=== PATIENT | female | born 1980 | race Caucasian/White ===

== ENCOUNTER 2021-03-28 20:14 | Emergency (ER) | payer OTHER, SELFPAY ==
--- NOTE | ~2021-03-28 | US_ITS ---
EXAMINATION: US ABDOMEN LIMITED CLINICAL INFORMATION: Right upper quadrant pain. Question cholecystitis.. COMPARISON: CT 07/29/2019 TECHNIQUE: Real-time imaging of the right upper quadrant abdominal viscera. FINDINGS: PANCREAS: The pancreatic head is obscured by gas. The visualized portion of the body is unremarkable. LIVER: 0.7 cm cyst in the right lobe of the liver. The liver is normal in size. The liver contour is normal. Parenchymal echogenicity is normal. No solid hepatic lesion. There is no intrahepatic biliary duct dilatation seen. GALLBLADDER: There is a 2.1 cm stone within the gallbladder lumen. No gallbladder wall thickening or pericholecystic fluid. COMMON BILE DUCT: Normal in caliber measuring 0.3 cm in diameter. RIGHT KIDNEY: Cortical thinning at the upper pole. No hydronephrosis. No renal calculi or focal parenchymal lesions. The kidney measures 9.9 cm in maximum dimension. FREE FLUID: None. US/US abdomen limited IMPRESSION: Cholelithiasis. No evidence of acute inflammatory changes.
[2021-03-28 21:12] VITALS: BP 154/96; PULSE 87; RESP 18; TEMP 36.9; O2SAT 98; BMI 33.6
[2021-03-28 21:33] LABS: Appearance Urine CLEAR; Color Urine YELLOW; Glucose Urine UA NEG (NEG); Leukocyte Esterase Urine NEG (NEG); Nitrite Urine NEG (NEG); Urine Blood NEG (NEG); Urine Ketones NEG (NEG); Urine Protein NEG (NEG-TRACE)
[2021-03-28 21:40] LABS: UPreg QC Valid YES; Urine Pregnancy NEGATIVE (NEGATIVE)
--- NOTE | 2021-03-29 01:06 | ED.ABDPAIN ---
HPI - Abdominal Pain General Chief Complaint: Abdominal Pain Stated Complaint: FLANK PAIN? Time Seen by Provider: 03/29/21 01:01 Source: patient Mode of arrival: ambulatory Limitations: no limitations History of Present Illness HPI narrative: Patient complaining of pain right upper quadrant for last few weeks more so for last 1 week and got worse since last night after eating the dinner. Patient vomited 3 times since last night low-grade fever and chills did not feel hungry and did eat much today feels bloated pain is localized to the right upper quadrant radiating to the right flank area , no dysuria no dandy hematuria. Patient does have history of kidney stone once, never been diagnosed with gallstones. Patient is status post appendectomy also patient complaining of loose stools Related Data Previous Rx's Medication Instructions Recorded ondansetron 4 mg PO Q6-8H PRN #10 tab 03/29/21 tramadol 50 mg PO Q6H PRN #20 tab 03/29/21 Allergies Allergy/AdvReac Type Severity Reaction Status Date / Time acetaminophen [From PERCOCET] Allergy Unknown UNKNOWN Verified 03/28/21 21:18 oxycodone [From PERCOCET] Allergy Unknown UNKNOWN Verified 03/28/21 21:18 Review of Systems Review of Systems Constitutional : No Weight loss, No Fever, No Chills ENT/Mouth : No sore throat, No Rhinorrhea Eyes: No Eye Pain, No Swelling Cardiovascular : No Chest Pain, no palpitations Respiratory : No Cough, No Sputum, no shortness of breath Gastrointestinal :+ Nausea, + Vomiting, No Diarrhea, + abdominal Pain, no black stools Genitourinary : No Dysuria, No Urinary Frequency Musculoskeletal : No joint pain, No Myalgias, No Joint Swelling Skin : No Skin Lesions, No rash Neuro : No Weakness, No Numbness, No Dizziness, No Headache Psych : No Anxiety/Panic, No Depression Heme/Lymph: No Bruising, No Lymphadenopathy Endocrine : No Polyuria, No Polydipsia All other systems reviewed and are negative Physical Exam Vital Signs: Vital Signs: Last Vital Signs Temp 98.4 F 03/28/21 21:12 Pulse 87 03/28/21 21:12 Resp 18 03/28/21 21:12 BP 154/96 H 03/28/21 21:12 Pulse Ox 98 03/28/21 21:12 Body Mass Index 33.6 Appearance: Alert. Oriented X3. In moderate distress. Eyes: PERRLA, No Nystagmus ENT: Pharynx normal. Oral Mucosa moist Neck: Normal inspection. Neck supple. CVS: Normal heart rate and rhythm. Pulses normal. Respiratory: No respiratory distress. Equal air entry bilateral, no wheezing/rales/rhonchi Abdomen: Soft and tender right upper quadrant with guarding no rebound tenderness Bowel sounds are present, no mass palpable, no CVA tenderness Skin: Skin warm and dry. Normal skin color. Normal skin turgor. Extremities: No lower extremity edema. No calf tenderness Neuro: Oriented X 3. No motor deficit. No sensory deficit.No cerebellar signs , cranial nerves II-XII intact MDM - Abdominal Pain MDM Narrative Medical decision making narrative: Patient with right upper quadrant pain clinically seems like patient has cholecystitis/gallstones will do ultrasound and check the labs Ultrasound showed gallstones without gallbladder wall thickening or fluid collection Will discharge patient home on pain medication advised follow-up with surgeon Lab Data Attestation: I reviewed the patient's lab results. Result diagrams: 03/29/21 01:17 03/29/21 01:17 Labs: Lab Results 03/28/21 03/28/21 03/29/21 Range/Units 21:26 21:26 01:17 WBC 6.9 (4.8-10.8) X10*3/uL RBC 4.44 (4.20-5.50) X10*6/uL Hgb 12.5 (12.0-16.0) g/dl Hct 38.7 (37-47) % MCV 87.2 (80-98) fL MCH 28.2 (27.0-33.0) pg MCHC 32.3 (31.0-35.0) g/dl RDW 13.4 (11.0-16.0) % Plt Count 240 (160-400) X10*3/uL MPV 10.1 (9.4-12.3) fL Immature Gran % (Auto) 0.1 (0.0-0.4) % Neut % (Auto) 52.9 (45-73) % Lymph % (Auto) 37.4 (20-40) % [place] % (Auto) 7.7 (2-11) % Eos % (Auto) 1.5 (0-4) % Baso % (Auto) 0.4 (0-2) % Lymph # (Auto) 2.6 (1.2-4.9) X10*3/uL [place] # (Auto) 0.5 (0.1-1.2) X10*3/uL Eos # (Auto) 0.1 (0.0-0.4) X10*3/uL Baso # (Auto) 0.0 (0.0-0.2) X10*3/uL Abs Immat Gran (auto) 0.01 (0.00-0.03) X10*3/uL Absolute Neuts (auto) 3.6 (2.0-8.3) X10*3/uL Absolute Nucleated RBC 0.000 (0.0-0.012) X10*3/uL Nucleated RBC % (auto) 0.0 (0.0-0.2) /100WBC PT (10.8-13.0) SEC INR (0.9-1.1) Sodium (135-145) mmol/L Potassium (3.3-5.1) mmol/L Chloride (96-108) mmol/L Carbon Dioxide (22-29) mmol/L Anion Gap (12-20) BUN (9-16) mg/dL Creatinine (0.5-1.4) mg/dL Estim Creat Clear Calc Estimated GFR Random Glucose (60-115) mg/dL Calcium (8.4-10.2) mg/dL Total Bilirubin (0.0-1.0) mg/dL Direct Bilirubin (0.0-0.5) mg/dL AST (5-31) U/L ALT (0-31) U/L Alkaline Phosphatase (39-117) U/L Total Protein (6.5-8.0) g/dL Albumin (3.5-5.0) g/dL Lipase (8-78) U/L Urine Color YELLOW Urine Appearance CLEAR Urine pH 6.0 (5.0-8.0) Ur Specific [place] 1.020 (1.005-1.025) Urine Protein NEG (NEG-TRACE) MG/DL Urine Glucose (UA) NEG (NEG) MG/DL Urine Ketones NEG (NEG) MG/DL Urine Blood NEG (NEG) Urine Nitrite NEG (NEG) Ur Leukocyte Esterase NEG (NEG) Urine Test NEGATIVE (NEGATIVE) 03/29/21 03/29/21 Range/Units 01:17 01:17 WBC (4.8-10.8) X10*3/uL RBC (4.20-5.50) X10*6/uL Hgb (12.0-16.0) g/dl Hct (37-47) % MCV (80-98) fL MCH (27.0-33.0) pg MCHC (31.0-35.0) g/dl RDW (11.0-16.0) % Plt Count (160-400) X10*3/uL MPV (9.4-12.3) fL Immature Gran % (Auto) (0.0-0.4) % Neut % (Auto) (45-73) % Lymph % (Auto) (20-40) % [place] % (Auto) (2-11) % Eos % (Auto) (0-4) % Baso % (Auto) (0-2) % Lymph # (Auto) (1.2-4.9) X10*3/uL [place] # (Auto) (0.1-1.2) X10*3/uL Eos # (Auto) (0.0-0.4) X10*3/uL Baso # (Auto) (0.0-0.2) X10*3/uL Abs Immat Gran (auto) (0.00-0.03) X10*3/uL Absolute Neuts (auto) (2.0-8.3) X10*3/uL Absolute Nucleated RBC (0.0-0.012) X10*3/uL Nucleated RBC % (auto) (0.0-0.2) /100WBC PT 13.2 H (10.8-13.0) SEC INR 1.1 (0.9-1.1) Sodium 138 (135-145) mmol/L Potassium 3.7 (3.3-5.1) mmol/L Chloride 107 (96-108) mmol/L Carbon Dioxide 23 (22-29) mmol/L Anion Gap 12 (12-20) BUN 10 (9-16) mg/dL Creatinine 0.76 (0.5-1.4) mg/dL Estim Creat Clear Calc 100.3 Estimated GFR > 60 Random Glucose 90 (60-115) mg/dL Calcium 8.7 (8.4-10.2) mg/dL Total Bilirubin 1.5 H (0.0-1.0) mg/dL Direct Bilirubin 0.6 H (0.0-0.5) mg/dL AST 14 (5-31) U/L ALT 16 (0-31) U/L Alkaline Phosphatase 37 L (39-117) U/L Total Protein 6.6 (6.5-8.0) g/dL Albumin 3.9 (3.5-5.0) g/dL Lipase 19 (8-78) U/L Urine Color Urine Appearance Urine pH (5.0-8.0) Ur Specific [place] (1.005-1.025) Urine Protein (NEG-TRACE) MG/DL Urine Glucose (UA) (NEG) MG/DL Urine Ketones (NEG) MG/DL Urine Blood (NEG) Urine Nitrite (NEG) Ur Leukocyte Esterase (NEG) Urine Test (NEGATIVE) Discharge Plan Discharge Clinical Impression: Cholelithiasis Qualifiers: Cholelithiasis location: gallbladder Cholecystitis presence: without cholecystitis Biliary obstruction: without biliary obstruction Qualified Code(s): K80.20 - Calculus of gallbladder without cholecystitis without obstruction Patient Disposition: Home, Self-Care Instructions: Gallstones (ED) Additional Instructions: Avoid fried food. Drink plenty of fluids. Follow with surgeon Report to the ER if increased pain/vomiting Prescriptions: New tramadol 50 mg tablet 50 mg PO Q6H PRN (Reason: pain) Qty: 20 RF: 0 ondansetron 4 mg tablet,disintegrating 4 mg PO Q6-8H PRN (Reason: nausea and vomiting) Qty: 10 RF: 0 Referrals: Gaston Arauz MD [Physician] - 1 week [facility] Past Medical History Medical History Kidney stones Tubal ligation evaluation Surgical History H/O hand surgery H/O knee surgery History of ankle surgery Hx of appendectomy S/P removal of thyroid nodule
[2021-03-29 01:23] LABS: MANUAL DIFF FLAG NO
[2021-03-29] MEDS: 0.9 % Sodium Chloride 1,000 ML 999 ML IVCONT (01:23)
[2021-03-29] MEDS: ondansetron HCL 4 MG/2 ML VIAL IVPUSH (01:24)
[2021-03-29 01:25] LABS: Basophils Percent Auto 0.4 % (0-2); Eosinophils Absolute Auto 0.1 X10*3/uL (0.0-0.4); Eosinophils Percent Auto 1.5 % (0-4); Hematocrit 38.7 % (37-47); Hemoglobin 12.5 g/dl (12.0-16.0); Imm Gran Abs Auto 0.01 X10*3/uL (0.00-0.03); Imm Gran Pct Auto 0.1 % (0.0-0.4); Lymphocytes Absolute Auto 2.6 X10*3/uL (1.2-4.9); Lymphocytes Percent Auto 37.4 % (20-40); Mean Corpuscular HGB Conc 32.3 g/dl (31.0-35.0); Mean Corpuscular Hemoglobin 28.2 pg (27.0-33.0); Mean Corpuscular Volume 87.2 fL (80-98); Mean Platelet Volume 10.1 fL (9.4-12.3); Monocytes Absolute Auto 0.5 X10*3/uL (0.1-1.2); Monocytes Percent Auto 7.7 % (2-11); Neutrophils Absolute Auto 3.6 X10*3/uL (2.0-8.3); Neutrophils Percent Auto 52.9 % (45-73); Platelet Count 240 X10*3/uL (160-400); Red Blood Count 4.44 X10*6/uL (4.20-5.50); Red Cell Distribution Width 13.4 % (11.0-16.0); White Blood Count 6.9 X10*3/uL (4.8-10.8)
[2021-03-29] MEDS: Famotidine/PF 20 MG/2 ML VIAL IVPUSH (01:26)
[2021-03-29 01:31] LABS: INTERNATIONAL NORM RATIO 1.1 (0.9-1.1); Prothrombin Time 13.2 SEC (10.8-13.0)
[2021-03-29 01:55] LABS: Alanine Aminotransferase 16 U/L (0-31); Albumin Level 3.9 g/dL (3.5-5.0); Alkaline Phosphatase 37 U/L (39-117); Anion Gap 12 (12-20); Aspartate Amino Transferase 14 U/L (5-31); Bilirubin Direct 0.6 mg/dL (0.0-0.5); Bilirubin Total 1.5 mg/dL (0.0-1.0); Blood Urea Nitrogen 10 mg/dL (9-16); Calcium 8.7 mg/dL (8.4-10.2); Carbon Dioxide 23 mmol/L (22-29); Chloride 107 mmol/L (96-108); Creatinine Clr Calc Pharmacy 100.3; Estimated Glomerular Filt Rate > 60; Glucose Random 90 mg/dL (60-115); Lipase 19 U/L (8-78); Potassium 3.7 mmol/L (3.3-5.1); Sodium 138 mmol/L (135-145); Total Protein 6.6 g/dL (6.5-8.0)
== END 2021-03-29 03:21 | disposition home or self-care (01) ==
LOC: HO.ED 03-29 02:29
PROVIDERS: Emergency Provider Internal Medicine; PCP Pediatrics
DX: K80.20 Calculus of gallbladder without cholecystitis without obstruction (principal); R10.11 Right upper quadrant pain; Z79.899 Other long term (current) drug therapy
CPT/HCPCS: 36415; 76705; 80048; 80076; 81003; 81025; 83690; 85025; 85610; 96365; 96375; 99283; 99284; J2405

== ENCOUNTER 2021-12-12 16:31 | Emergency (ER) | payer OTHER, SELFPAY ==
--- NOTE | 2021-12-12 | ECG_ITS ---
Test Reason : CHEST PAIN Blood Pressure : / mmHG Vent. Rate : 124 BPM Atrial Rate : 124 BPM P-R Int : 160 ms QRS Dur : 100 ms QT Int : 312 ms P-R-T Axes : 020 038 041 degrees QTc Int : 448 ms Sinus tachycardia Incomplete right bundle branch block Borderline ECG When compared with ECG of 13-OCT-2018 22:17, No significant change was found Referred By: Generic ED Physician Electronically Signed By:ANDREI WATERS
[2021-12-12 17:28] VITALS: BP 130/82; PULSE 118; RESP 18; TEMP 39.3; O2SAT 96; BMI 32.1
[2021-12-12] MEDS: Acetaminophen 325 MG TABLET 650 MG PO (17:44)
[2021-12-12 18:39] LABS: COVID-19 Test Positive (Negative)
[2021-12-12 20:12] VITALS: BP 145/81; PULSE 89; RESP 16; TEMP 37; O2SAT 98
--- NOTE | 2021-12-12 20:20 | ED_ITS ---
HPI - General Adult General Chief complaint: General Medical Stated complaint: Fever 2 days, Chest Pain Time Seen by Provider: 12/12/21 17:39 Source: patient Mode of arrival: ambulatory Limitations: no limitations History of Present Illness HPI narrative: 41-year-old female past medical history significant for hypertension presents the emergency department with fever, body aches, chest pressure, malaise x2 days. Patient tells me that she has been feeling like this since yesterday, all her kids at home are sick with similar symptoms. She tells me that her temperature at home has been in the 100s. She tells me she feels tired and worn out. She tells me she is having chest pressure, not necessarily chest pain. She reports malaise. She has been eating and drinking well. She is vaccinated against COVID she has 2 vaccinations of the COVID vaccine. She denies nausea, vomiting, abdominal pain, weakness, headache, dizziness, vision changes. Onset (ago): day(s) (2) Radiation: non-radiation Severity: moderate Relieving factors: none Exacerbating factors: none Associated symptoms: chest pain (Chest discomfort), fever/chills and malaise Treatments prior to arrival: none Related Data Previous Rx's Medication Instructions Recorded ondansetron 4 mg disintegrating 4 mg PO Q6-8H PRN #10 tab 03/29/21 tablet tramadol 50 mg tablet 50 mg PO Q6H PRN #20 tab 03/29/21 Allergies Allergy/AdvReac Type Severity Reaction Status Date / Time acetaminophen [From PERCOCET] Allergy Unknown UNKNOWN Verified 03/28/21 21:18 oxycodone [From PERCOCET] Allergy Unknown UNKNOWN Verified 03/28/21 21:18 Review of Systems Review of Systems: Constitutional : No Weight loss, + Fever, + Chills, + Fatigue, + Malaise ENT/Mouth : No sore throat, No Rhinorrhea Eyes: No Eye Pain, No Swelling, No Redness Cardiovascular : + Chest Pain, No SOB, No Dyspnea on Exertion, No Orthopnea, No Edema, No Palpitations Respiratory : No Cough, No Sputum, No Wheezing Gastrointestinal : No Nausea, No Vomiting, No Diarrhea, No Constipation, No abdominal Pain, No Hematochezia, No Melena Genitourinary : No Dysuria, No Urinary Frequency, No Hematuria, Musculoskeletal : No joint pain, No Myalgias, No Joint Swelling Skin : No Skin Lesions, No rash Neuro : No Weakness, No Numbness, No Dizziness, No Headache All other systems reviewed and are negative Yes all other systems are reviewed and are negative REPLACED BY [facility] Past Medical History Attestation statement: The following information was validated with the patient. Source: old records reviewed and nursing notes reviewed Medical History Kidney stones Tubal ligation evaluation Surgical History H/O hand surgery H/O knee surgery History of ankle surgery Hx of appendectomy S/P removal of thyroid nodule Social History Social History Advance Directives: No Advance Directives Information Provided: Yes Patient : No Physical Exam Vital Signs: Vital Signs: Last Vital Signs Temp 98.6 F 12/12/21 20:12 Pulse 89 12/12/21 20:12 Resp 16 12/12/21 20:12 BP 145/81 H 12/12/21 20:12 Pulse Ox 98 12/12/21 20:12 BMI result Body Mass Index 32.1 VSS initially patient was noted to be febrile however she was given medication at this time she is afebrile. Appearance: Alert.? Oriented X3.? No acute distress.? Head: Normocephalic, atraumatic, no step-offs or deformities Eyes: Pupils equal, round and reactive to light.? ENT: Pharynx normal.? Neck: Normal inspection.? Neck supple.? CVS: Normal heart rate and rhythm.? Pulses normal.? Respiratory: No respiratory distress.? Breath sounds normal.? Abdomen: Soft and nontender.? Skin: Skin warm and dry.? Normal skin color.? Normal skin turgor.? Extremities: No lower extremity edema.? No calf ttp., negative Shanel sign. 5/5 strength to bilateral upper and lower extremities Back: No midline tenderness, no C-spine tenderness, full range of motion, no CVA tenderness bilaterally Neuro: Oriented X 3.? No motor deficit.? No sensory deficit. Course Reevaluation(s) Reevaluation #1: Patient noted to be COVID positive likely patient's symptoms are secondary to COVID-19. I have advised her to return to the emergency department with new or worsening symptoms. I have educated her on the diagnosis and answered any questions. I have given her return precautions and have outlined in her discharge. I feel comfortable with discharge home. EKG with no acute findings. Unlikely ACS. Unlikely PE, patient is not hypoxic, negative sign initially patient was tachycardic however she tells me she was very nervous, she is no longer tachycardic. Patient's vital signs and physical exam and history not consistent with ACS, PE or pneumonia. Time: 20:22 Medical Decision Making MDM Narrative Medical decision making narrative: 2019 41 yo f no significant pmhx presents to the ED w/ covid like sx since yesterday. Vaccinated with 2 Pfizer shots. Children at home sick with similar symptoms. PE benign. Initially patient was noted to be tachycardic and febrile unlikely sepsis, likely secondary to viral infection. Plan is to obtain a COVID test Medical Records Medical records reviewed: Yes I reviewed the patient's medical records. Lab Data Labs: Lab Results 12/12/21 Range/Units 18:21 COVID-19 (GISEL) Positive A (Negative) COVID-19 Clin Com See Note Critical Care Time Critical Care Time Critical Care Time: No Discharge Plan Discharge Clinical Impression: COVID-19 Patient Disposition: Home, Self-Care Instructions: COVID-19 (Coronavirus Disease 2019) (ED) Additional Instructions: Take your medications as prescribed. If you were prescribed antibiotics today, it is important that you take your medication to their entirety, do not skip any doses, do not finish them early. Today you tested positive for COVID-19. Take Ibuprofen or Tylenol as needed for fevers or body aches. Quarantine for 7 days and ensure you wear a mask. After 7 days you should wear a mask for 3 days after that. Practice social distancing and good hand hygiene. Drink plenty of fluids. Follow-up with your primary care provider this week. Return to the emergency department with new or worsening symptoms. Such as chest pain, shortness of breath, fevers, chills, nausea, vomiting, weakness, vision changes, headache. In case of emergency call 911 You can purchase a pulse oximeter from your local pharmacy or grocery store, and monitor your oxygen saturation if it goes below 94% you should return to the emergency department for further evaluation. If You Test Positive for COVID-19 (Isolate) Everyone, regardless of vaccination status. * Stay home for 5 days. * If you have no symptoms or your symptoms are resolving after 5 days, you can leave your house. * Continue to wear a mask around others for 5 additional days. If you have a fever, continue to stay home until your fever resolves. If You Were Exposed to Someone with COVID-19 (Quarantine) If you: Have been boosted OR Completed the primary series of Pfizer or Moderna vaccine within the last 6 months OR Completed the primary series of J&J vaccine within the last 2 months * Wear a mask around others for 10 days. * Test on day 5, if possible. If you develop symptoms get a test and stay home. If you: Completed the primary series of Pfizer or Moderna vaccine over 6?months ago and are not boosted OR Completed the primary series of J&J over 2 months ago and are not boosted OR Are unvaccinated * Stay home for 5 days. After that continue to wear a mask around others for 5 additional days. * If you can?t quarantine you must wear a mask for 10 days. * Test on day 5 if possible. If you develop symptoms get a test and stay home Prescriptions: No Action tramadol 50 mg tablet 50 mg PO Q6H PRN (Reason: pain) Qty: 20 RF: 0 ondansetron 4 mg tablet,disintegrating 4 mg PO Q6-8H PRN (Reason: nausea and vomiting) Qty: 10 RF: 0 Referrals: Physician,Unknown J [Physician] - 2 days Stand Alone Forms: Work/School Release
== END 2021-12-12 21:00 | disposition home or self-care (01) ==
LOC: HO.ED 20:40
PROVIDERS: Physician Assistant; Emergency Provider Emergency Medicine; PCP Pediatrics
DX: U07.1 COVID-19 (principal); R50.9 Fever, unspecified; R07.9 Chest pain, unspecified; R05.9 Cough, unspecified; Z79.899 Other long term (current) drug therapy
CPT/HCPCS: 87635; 93005; 99283; 99284

== ENCOUNTER 2023-02-01 12:52 | Outpatient (REF) | payer OTHER, SELFPAY ==
[2023-02-01 15:53] LABS: Estimated Average Glucose 94 mg/dL; Hemoglobin A1c % 4.9 %
[2023-02-01 16:13] LABS: Alanine Aminotransferase 19 U/L (0-31); Alkaline Phosphatase 61 U/L (39-117); Aspartate Amino Transferase 17 U/L (5-31); Bilirubin Direct 0.3 mg/dL (0.0-0.5); Bilirubin Total 0.9 mg/dL (0.0-1.0); Gamma Glutamyl Transpeptidase 19 U/L (7-33); Lipase 27 U/L (8-78); Total Protein 7.1 g/dL (6.5-8.0)
[2023-02-01 16:42] LABS: Folate 9.8 ng/mL (> or = 4.0); Vitamin B12 543 pg/mL (200-900)
[2023-02-03 14:10] LABS: H Pylori Breath Test Negative (Negative)
[2023-02-06 09:49] LABS: Transglutaminase Ab IgG <1.0 U/mL; Transglutaminase IgA <1.0 U/mL
[2023-02-08 15:48] LABS: Vitamin D 25-OH, D2 <4 ng/mL; Vitamin D 25-OH, D3 14 ng/mL; Vitamin D 25-OH, Total 14 ng/mL (30-100)
== END 2023-02-01 12:53 | disposition home or self-care (01) ==
LOC: HO.LAB 12:52
PROVIDERS: PCP Pediatrics; Visit Provider Nurse Practitioner Family
DX: E55.9 Vitamin D deficiency, unspecified (principal); R10.9 Unspecified abdominal pain; K20.90 Esophagitis, unspecified without bleeding; E11.9 Type 2 diabetes mellitus without complications; R19.7 Diarrhea, unspecified; R74.8 Abnormal levels of other serum enzymes; K59.00 Constipation, unspecified; K21.9 Gastro-esophageal reflux disease without esophagitis
CPT/HCPCS: 36415; 80076; 82306; 82607; 82746; 82977; 83013; 83036; 83690; 84443; 86003; 86364; 99202

== ENCOUNTER 2023-02-07 15:17 | Outpatient (REF) | payer OTHER, SELFPAY ==
[2023-02-17 21:32] LABS: Pancreatic Elastase-1 >500 mcg/g
== END 2023-02-07 15:18 | disposition home or self-care (01) ==
LOC: HO.LNP 15:17
PROVIDERS: Visit Provider Nurse Practitioner Family
DX: R10.9 Unspecified abdominal pain (principal)
CPT/HCPCS: 82656

== ENCOUNTER → 2023-02-21 12:57 | Outpatient (BNVA) | payer OTHER, SELFPAY | PROVIDERS: PCP Pediatrics; Visit Provider Nurse Practitioner Family | DX: K21.9 Gastro-esophageal reflux disease without esophagitis (principal); R10.13 Epigastric pain; R10.31 Right lower quadrant pain | CPT/HCPCS: 99212 ==

== ENCOUNTER 2023-02-28 11:54 | Day surgery (SDC) | payer OTHER, SELFPAY ==
--- NOTE | 2023-02-27 12:00 | HO.ANESPROP2 ---
Documented by User: Kim Knox NP 02/27/23 12:21 HPI - Anesthesia Eval Consult details Narrative: 42yo F for Upper Endoscopy PMFSH Active Problems Active Problems: All Active Problems (Updated 02/01/23 @ 13:18 by Reginald Santana) COVID-19 (Acute) Past Medical History Medical History Hx of malignant neoplasm of gallbladder Hypertension Kidney stones Tubal ligation evaluation Surgical History Surgical History H/O hand surgery H/O knee surgery History of ankle surgery History of cholecystectomy History of lumbar fusion Hx of appendectomy Previous back surgery S/P removal of thyroid nodule Tubal ligation status Social History Social History Household Members: Family Alcohol intake: current Alcohol intake frequency: a few times a month Patient Tobacco Use Status: Never used Tobacco Use of substances other than those prescribed or required for medical reasons: No Are you DNR?: No Advance Directives: No Advance Directives Information Provided: Yes Meds Allergies Allergy/AdvReac Type Severity Reaction Status Date / Time acetaminophen [From PERCOCET] Allergy Unknown Nausea and Verified 02/28/23 12:33 Vomiting oxycodone [From PERCOCET] Allergy Unknown Nausea and Verified 02/28/23 12:33 Vomiting amoxicillin AdvReac Nausea and Verified 02/28/23 12:33 Vomiting Home Medications Medication Instructions Recorded Confirmed Last Taken Type hydrochlorothiazide 12.5 mg tablet 12.5 mg PO DAILY 02/01/23 02/28/23 Unknown History sulfamethoxazole 400 1 tab PO DIRECTED 02/01/23 02/28/23 Unknown History mg-trimethoprim 80 mg tablet Exam Exam Date and Time: February 27, 2023 1200 Assessment and Plan Assessment Anesthesia Assessment: Chart Reviewed Documented by User: Emma Cooney MD 02/28/23 13:07 PMFSH Active Problems Active Problems: All Active Problems (Updated 02/01/23 @ 13:18 by Reginald Santana) COVID-19 (Acute) Increased BMI Past Medical History Medical History Hx of malignant neoplasm of gallbladder Hypertension Kidney stones Tubal ligation evaluation Family History Family history of problems with anesthesia: No Surgical History Surgical History H/O hand surgery H/O knee surgery History of ankle surgery History of cholecystectomy History of lumbar fusion Hx of appendectomy Previous back surgery S/P removal of thyroid nodule Tubal ligation status History of Problems with Anesthesia: No Social History Social History Household Members: Family Alcohol intake: current Alcohol intake frequency: a few times a month Patient Tobacco Use Status: Never used Tobacco Use of substances other than those prescribed or required for medical reasons: No Are you DNR?: No Advance Directives: No Advance Directives Information Provided: Yes Meds Allergies Allergy/AdvReac Type Severity Reaction Status Date / Time acetaminophen [From PERCOCET] Allergy Unknown Nausea and Verified 02/28/23 12:33 Vomiting oxycodone [From PERCOCET] Allergy Unknown Nausea and Verified 02/28/23 12:33 Vomiting amoxicillin AdvReac Nausea and Verified 02/28/23 12:33 Vomiting Home Medications Medication Instructions Recorded Confirmed Last Taken Type hydrochlorothiazide 12.5 mg tablet 12.5 mg PO DAILY 02/01/23 02/28/23 Unknown History sulfamethoxazole 400 1 tab PO DIRECTED 02/01/23 02/28/23 Unknown History mg-trimethoprim 80 mg tablet Exam Height,Weight and Vital Signs: Height 5 ft 3 in Weight 95.254 kg Vital Signs Temp Pulse Resp BP Pulse Ox O2 Del Method 02/28/23 12:37 98.8 F 72 16 142/82 H 97 Room Air Assessment and Plan Final Anesthetic Review Family History of Problems with Anesthesia: No History of Problems with Anesthesia: No
[2023-02-28 12:34] VITALS: BMI 37.2
[2023-02-28 12:37] VITALS: BP 142/82; PULSE 72; RESP 16; TEMP 37.1; O2SAT 97
[2023-02-28] MEDS: Lactated Ringers 1,000 ML 100 ML IVCONT (12:47)
--- NOTE | 2023-02-28 13:06 | P.HPSUR_ITS ---
Pre-Procedural Eval Section A Date of Service: 02/28/23 Section B Chief Complaint: Gastro-esophageal reflux disease without esophagit Relevant Family History (Specify if Yes): No Relevant Social History: None Present Medications: see Short Stay Collaborative assessment Medical History: Significant History (Hx of malignant neoplasm of gallbladder Hypertension Kidney stones Tubal ligation evaluation) History of Previous Operations: Relevant previous surgery/procedure and date(s) (H/O hand surgery H/O knee surgery History of ankle surgery History of cholecystectomy History of lumbar fusion Hx of appendectomy Previous back surgery S/P removal of thyroid nodule Tubal ligation status) Allergies: Allergies Allergy/AdvReac Type Severity Reaction Status Date / Time acetaminophen [From PERCOCET] Allergy Unknown Nausea and Verified 02/28/23 12:33 Vomiting oxycodone [From PERCOCET] Allergy Unknown Nausea and Verified 02/28/23 12:33 Vomiting amoxicillin AdvReac Nausea and Verified 02/28/23 12:33 Vomiting Review of Systems Sugical H&P ROS: Negative: Constitution, Cardiovascular, Respiratory, Neurological, Psychiatric, Hem-Onc, Allergic/Immunologic, Gastrointestinal, Genitourinary, Musculoskeletal, Integumentary, Endocrine and Eyes/E ars/Nose/Throat Exam Surgical H&P Exam: Normal: HEENT, Normal: Heart, Normal: Lungs, Normal: Extremities, Normal: Abdomen, Normal: Skin and Normal: Neurological Plan Diagnosis/Plan: Unchanged I have reviewed the history and physical and performed a pertinent physical examination on my patient. No changes have occurred unless specified. Time Spent With Patient Time: Total time managing care of this patient today ____ minutes.
--- NOTE | 2023-02-28 13:07 | P.OP_ITS ---
Operative Note Operative Note Date of Service: 02/28/23 Narrative: Procedure Description: EGD Indication: epigastric pain Anesthesia: MAC FLEXIBLE TRANSORAL UPPER GASTROINTESTINAL ENDOSCOPY UPPER ENDOSCOPY Consent: Indications for the procedure and potential complications of bleeding, perforation, reaction to medications and missed diagnosis were discussed with the patient and informed consent was obtained. Instrument: Olympus GIF H 190 J mid size upper endoscope Monitoring: Vital signs and clinical assessment, continuous EKG monitoring, Pulse oximetry, Carbon Dioxide monitoring and blood pressure monitoring were done throughout the procedure. Procedure: The patient was placed in the left lateral decubitis position and pre-procedure medications were administered and a bite block was placed. The endoscope was inserted into the mouth and advanced under direct vision to the third part of duodenum. A careful inspection was made as the upper endoscope was withdrawn including a retroflexed examination of the proximal stomach; Findings and interventions are described below. Findings: Larynx:normal Esophagus: GE junction at 36 cm, diaphragm hiatus at 36 cm, mild bogginess,congestion and erythema at the GEJ consistent with reflux, bx taken as well as from distal and proximal esophagus. Stomach: Patchy gastric erythema around the antrum with healed erosions noted in distal body. Biopsies were obtained. Grade 2 flap valve on retroflexed e xamination of the cardia. Duodenum: Patchy erythema and denudation of mucosa, bx taken Intervention: Biopsies as noted above Impression/Findings: gastritis esophagitis enteropathy, prob reflux related damage PLAN: check compliance with PPI, if taking can change to esomeprazole if h pylori pos then treat pt does not take nsaids
[2023-02-28 13:25] VITALS: BP 117/65; PULSE 76; RESP 15; TEMP 36.6; O2SAT 93
[2023-02-28 13:40] VITALS: BP 127/73; PULSE 80; RESP 16; TEMP 36.6; O2SAT 97
== END 2023-02-28 14:06 | disposition home or self-care (01) ==
PROVIDERS: PCP Pediatrics; Visit Provider Internal Medicine Gastroenterology
PROC: 0DJ08ZZ Inspection of Upper Intestinal Tract, Via Natural or Artificial Opening Endoscopic (ICD-10-PCS; CPT 43235; principal; 2023-02-28 13:10)
DX: K21.9 Gastro-esophageal reflux disease without esophagitis (principal); K20.80 Other esophagitis without bleeding; K29.50 Unspecified chronic gastritis without bleeding; K63.9 Disease of intestine, unspecified; K44.9 Diaphragmatic hernia without obstruction or gangrene; N20.0 Calculus of kidney; I10 Essential (primary) hypertension; Z85.09 Personal history of malignant neoplasm of other digestive organs; Z90.49 Acquired absence of other specified parts of digestive tract; Z79.899 Other long term (current) drug therapy; Z88.1 Allergy status to other antibiotic agents; Z88.8 Allergy status to other drugs, medicaments and biological substances
CPT/HCPCS: 43239; 88305; 88342; J2250; J3010

== ENCOUNTER → 2023-03-13 12:16 | Outpatient (BNVA) | payer OTHER, SELFPAY | PROVIDERS: PCP Pediatrics; Referring Provider Pediatrics; Visit Provider Nurse Practitioner Family | DX: K21.00 Gastro-esophageal reflux disease with esophagitis, without bleeding (principal); R10.13 Epigastric pain | CPT/HCPCS: 99212 ==

== ENCOUNTER 2023-06-24 13:44 | Outpatient (AMB) | payer OTHER, SELFPAY ==
[2023-06-24 13:57] VITALS: BP 135/81; PULSE 79; BMI 36.2
--- NOTE | 2023-06-24 13:57 | A.OFFVIS_ITS ---
Intake Vital Signs 06/24/23 13:57 Height 5 ft 3 in Weight 204 lb 9.423 oz BMI 36.2 BP 135/81 Blood Pressure Location Lt brachial Position Sitting Pulse 79 Intake Visit Reasons: 3 month follow up Intake Note: Candy presents in office as a est.patient for a 3month f/u for GERD PT CC: pt reports having no concerns pt denies any other GI Issues Credit Product Analyst Required: No Accompanied by: Self / Same As Patient Allergies acetaminophen [From PERCOCET] Allergy (Unknown, Verified 06/24/23 13:58) Nausea and Vomiting oxycodone [From PERCOCET] Allergy (Unknown, Verified 06/24/23 13:58) Nausea and Vomiting amoxicillin Adverse Reaction (Verified 06/24/23 13:58) Nausea and Vomiting HPI 3 month follow up HPI Details LAST VISIT: GERD (gastroesophageal reflux disease) Upper endoscopy discussed with patient. Biopsy results discussed with patient as well. Esophagitis at the GE junction found. Mild gastritis. Patient will continue pantoprazole. I will send script for famotidine at bedtime. Patient was instructed to avoid dietary triggers and late night snacking. Staying upright for minimal 3 hours after meals discussed with patient. Postprandial epigastric pain Patient reports that since she started taking pantoprazole she no longer has postprandial epigastric discomfort. Continue current dose. Will add H2 xiomara. I will see patient in 3 months. We will discuss patient going for colonoscopy and maybe repeat upper endoscopy. Patient is agreeable to this plan and verbalizes understanding of instructions. She was given the opportunity to ask questions and all questions answered. ? Thank you for allowing me to participate in her care Plan Medications New famotidine (Pepcid) 20 mg PO BEDTIME PRN 30 tabs 3RF acid reflux K21.9 Discontinued sucralfate Discontinued Reason: Doctor's Order 1 g PO BEDTIME 30 tabs 4RF R19.7 TODAY'S VISIT Patient is here today for follow-up and discuss going for colonoscopy screening. Patient reports that she has been using pantoprazole and feels like it is helping, occasional epigastric discomfort and dyspepsia without dysphagia or odynophagia. Patient reports that she is unable to eat tomatoes due to reflux. Patient wants to lose weight. States that she grows her own gardening he and is excited about eating more vegetables. Patient started going to the gym as well. Patient reports occasional constipation and postprandial abdominal bloating. Patient reports that she has been having vaginal bleed in the past 28 days. It started on June 02 and she continues to have heavy bleeding with clots. Patient states that she had ABSORPTION PLANT OPERATOR at [facility], however due to COVID she was unable to follow-up with them and now they schedule her as a new patient. Patient would like to get a referral to ABSORPTION PLANT OPERATOR at [facility] Medical History Hx of malignant neoplasm of gallbladder Hypertension Kidney stones Tubal ligation evaluation Surgical History H/O hand surgery H/O knee surgery History of ankle surgery History of cholecystectomy History of esophagogastroduodenoscopy (EGD) History of lumbar fusion Hx of appendectomy Previous back surgery S/P removal of thyroid nodule Tubal ligation status Social History Household Members: Family Alcohol intake: current Alcohol intake frequency: a few times a month Patient Tobacco Use Status: Never used Tobacco Review of Systems Const Denies weight gain and Denies weight loss ENT Reports no additional complaints, Denies dysphagia and Denies odynophagia Card Reports no additional complaints Resp Reports no additional complaints GI Denies abdominal pain, Denies belching, Denies melena, Reports bloating, Denies change in bowel habits, Reports constipation (occasional), Denies dysphagia, De nies excessive flatus, Denies dyspepsia, Reports heartburn (occasional), Denies diarrhea, Denies loose stools, Denies nausea, Denies odynophagia and Denies vomiting Reports no additional complaints Musc Reports no additional complaints Neuro Reports no additional complaints Psych Reports no additional complaints Endo Reports no additional complaints Physical Exam Vital Signs: Last Vital Signs Pulse 79 06/24/23 13:57 BP 135/81 06/24/23 13:57 BMI result Body Mass Index 36.2 Const General: healthy appearing, no acute distress and well developed Nutritional Appearance: obese Orientation/consciousness: patient oriented x3 HEENT Head: Yes normal to inspection, Yes normocephalic and Yes atraumatic Face and sinus: Yes normal facial exam Mouth: Normal oral and palatal mucosa present Throat: Yes posterior oropharynx normal, Yes tonsils normal and Yes uvula midline Eyes General: appearance normal, both eyes and all related structures Neck Neck: Yes normal visual inspection, Yes full ROM and Yes trachea midline Thyroid: Thyroid normal Resp Effort & Inspection: normal respiratory effort, able to speak in complete sentences, no tracheal deviation and symmetric chest movement Auscultation: clear to auscultation bilaterally Cardio Rate: regular rate Heart sounds: S1 normal heart sound present and S2 normal heart sound present GI Inspection: Yes normal to inspection, No distended and Yes obesity Palpation (GI): Soft to palpation, not firm, nontender and No hepatosplenomegaly present Auscultation: normal bowel sounds General: Yes no CVA tenderness Back/Spine/Pelvis Back: no CVA tenderness Skin General skin exam: elasticity normal, turgor normal and dry skin Neuro General: patient oriented x3 Psych Appearance: grossly normal Mental Status: mental status grossly normal Speech and movement: Normal speech and movement present Affect: normal affect Assessment & Plan Assessment & Plan (1) Menorrhagia: Code(s): N92.0 - Excessive and frequent menstruation with regular cycle Qualifiers: Menorrhagia type: premenopausal Qualified Code(s): N92.4 - Excessive bleeding in the premenopausal period Plan: Referral sent to see horticultural agent (2) GERD (gastroesophageal reflux disease): Code(s): K21.9 - Gastro-esophageal reflux disease without esophagitis Qualifiers: Esophagitis presence: esophagitis presence not specified Qualified Code(s): K21.9 - Gastro-esophageal reflux disease without esophagitis Plan: Continue pantoprazole. Continue avoiding dietary triggers and late night snacking. Staying upright for minimum 3 hours after meals discussed with patient (3) Postprandial epigastric pain: Code(s): R10.13 - Epigastric pain Plan: Occasional postprandial epigastric discomfort and bloating. Patient was encouraged to avoid dietary triggers as discussed above (4) Constipation: Code(s): K59.00 - Constipation, unspecified Qualifiers: Constipation type: slow transit constipation Qualified Code(s): K59.01 - Slow transit constipation Plan: Encouraged patient to increase fluid intake and activity to promote better bowel motility. Increase vegetables in her diet. I will see patient in 3 months to discuss colonoscopy and possibly upper endoscopy. Patient is agreeable to this plan and verbalizes understanding of instructions. She will schedule the colonoscopy and upper endoscopy today. She was given the opportunity to ask questions and all questions answered. Thank you for allowing me to participate in her care Orders: Referrals ADHESIVE BANDAGE MACHINE OPERATOR Referral N92.0 - Excessive and frequent menstruation with regular cycle Medications: Refilled pantoprazole take one tablet half an hour before breakfast 40 mg PO DAILY 90 tabs 2RF K21.9 - Gastro-esophageal reflux disease without esophagitis Coding Level of Care Code Est Pt Level 4 (48238) Diagnoses Menorrhagia N92.4 Menorrhagia type: premenopausal GERD (gastroesophageal reflux disease) K21.9 Esophagitis presence: esophagitis presence not specified Postprandial epigastric pain R10.13 Constipation K59.01 Constipation type: slow transit constipation Time Spent (min) 35 Comment 25 minutes spent with patient and additional 10 minutes spent reviewing her records
== END 2023-06-24 14:57 | disposition home or self-care (01) ==
PROVIDERS: Visit Provider Nurse Practitioner Family
DX: N92.4 Excessive bleeding in the premenopausal period (principal); K21.9 Gastro-esophageal reflux disease without esophagitis; R10.13 Epigastric pain; K59.01 Slow transit constipation
CPT/HCPCS: 99214

== ENCOUNTER → 2023-06-24 13:44 | Outpatient (BNVA) | payer OTHER, SELFPAY | PROVIDERS: Visit Provider Nurse Practitioner Family | DX: K21.9 Gastro-esophageal reflux disease without esophagitis (principal); K59.01 Slow transit constipation; N92.4 Excessive bleeding in the premenopausal period; R10.13 Epigastric pain | CPT/HCPCS: 99212 ==

== ENCOUNTER 2023-06-25 11:32 | Outpatient (AMB) | payer OTHER, SELFPAY ==
[2023-06-25 11:33] VITALS: BP 110/70; BMI 35.4
--- NOTE | 2023-06-25 11:33 | MHC.OFFVIS ---
Intake Vital Signs 06/25/23 11:33 Height 5 ft 3 in Weight 200 lb BMI 35.4 BP 110/70 Intake Visit Reasons: vaginal bleeding Intake Note: Vaginal bleeding x 25 days Gas Desulfurizer Required: No Information Interpreted: non-clinical & clinical Manager Business Development Hospice: Manager Business Development Hospice Present (Yessy Talavera KAREN) Accompanied by: Self / Same As Patient Allergies acetaminophen [From PERCOCET] Allergy (Unknown, Verified 06/25/23 11:35) Nausea and Vomiting oxycodone [From PERCOCET] Allergy (Unknown, Verified 06/25/23 11:35) Nausea and Vomiting amoxicillin Adverse Reaction (Verified 06/25/23 11:35) Nausea and Vomiting Is last menstrual period known: Yes HPI HPI Comments History of Present Illness Details The patient is presenting c/o irregular bleeding associated with passage of blood clots and abdominal cramping. it started few months ago and is getting worse no other associated symptoms. Last co testing and mammogram were in 2018 [facility] Medical History Hx of malignant neoplasm of gallbladder Hypertension Kidney stones Tubal ligation evaluation Surgical History H/O hand surgery H/O knee surgery History of ankle surgery History of cholecystectomy History of esophagogastroduodenoscopy (EGD) History of lumbar fusion Hx of appendectomy Previous back surgery S/P removal of thyroid nodule Tubal ligation status Social History Household Members: Family Alcohol intake: current Alcohol intake frequency: a few times a month Patient Tobacco Use Status: Never used Tobacco Review of Systems Const All systems reviewed & are unremarkable except as noted in HPI and below Card Reports as per HPI Resp Reports as per HPI GI Reports as per HPI and Reports no additional complaints Reports as per HPI Physical Exam Vital Signs: Last Vital Signs BP 110/70 06/25/23 11:33 BMI result Body Mass Index 35.4 Const General: cooperative, healthy appearing and comfortable Chest Chest palpation & inspection: normal inspection of the chest and normal palpation of entire chest wall Breast/axilla inspection: normal inspection of the breasts and normal inspection of the axillae Breast/axilla palpation: normal palpation of the breasts, normal palpation of the axillae and no axillary lymphadenopathy Resp Effort & Inspection: normal respiratory effort Auscultation: clear to auscultation bilaterally Percussion: percussion normal Cardio Palpation: normal PMI Rate: regular rate Rhythm: regular rhythm Heart sounds: no murmurs and no rubs Peripheral pulses: Peripheral pulses 2+ throughout GI Inspection: Yes normal to inspection Palpation (GI): Soft to palpation, nontender, no guarding, not rigid and No hepatosplenomegaly present Percussion: Yes normal to percussion Auscultation: normal bowel sounds Rectal Exam - Female: deferred General: Yes bladder normal to palpation External Female Exam: No lesion Speculum Exam - Vagina: normal appearance of the vagina, normal palpation, normal vaginal discharge and not erythematous Speculum Exam - Cervix: normal appearance of the cervix and normal palpation Bimanual exam- vagina & uterus: normal bimanual exam, normal palpation, uterine size normal, bladder normal to palpation, consistency normal and normal palpation Bimanual Exam- Adnexa, other: normal adnexae, no masses and no tenderness Results AMB Test Urine AMB Test Urine Negative Last Edit by Yessy Talavera CMA on 06/25/23 11:39 Results Reviewed Results Reviewed: Laboratory Last Values Tst Clinic Negative 06/25/23 11:38 Assessment & Plan Assessment & Plan (1) Abnormal uterine bleeding: Code(s): N93.9 - Abnormal uterine and vaginal bleeding, unspecified Plan: Co testing done, GC and chlamydia taken CBC, TSH, HCG, screening mammogram and pelvic ultrasound ordered. Discussed with the patient the different causes of abnormal bleeding including thyroid disorders, uterine and ovarian pathology, endometrial hyperplasia, carcinoma and other potential causes. Discussed with the patient the work up including CBC (to r/o anemia), TSH, pelvic Ultrasound, endometrial biopsy to r/o endometrial pathology. All questions answered and the patient verbalized understanding. Instructed the patient to schedule an appointment for an endometrial biopsy in 2 weeks. Orders: Orders AMB HCG Urine Test Today Z32.02 - Encounter for test, result negative Follicle Stimulating Hormone Today N93.9 - Abnormal uterine and vaginal bleeding, unspecified HCG Quantitative Today N93.9 - Abnormal uterine and vaginal bleeding, unspecified Lutenizing Hormone Today N93.9 - Abnormal uterine and vaginal bleeding, unspecified Prolactin Today N93.9 - Abnormal uterine and vaginal bleeding, unspecified TSH reflex Free T4 Today N93.9 - Abnormal uterine and vaginal bleeding, unspecified Complete Blood Count no Diff Today N93.9 - Abnormal uterine and vaginal bleeding, unspecified MM screening mammo BI Today Z12.31 - Encounter for screening mammogram for malignant neoplasm of breast US pelvic and transvaginal Today N93.9 - Abnormal uterine and vaginal bleeding, unspecified Coding Level of Care Code New Pt Level 3 (34066) Diagnoses Abnormal uterine bleeding N93.9
== END 2023-06-25 13:40 | disposition home or self-care (01) ==
LOC: HO.HWS 11:32
PROVIDERS: PCP Pediatrics; Visit Provider Obstetrics & Gynecology
DX: N93.9 Abnormal uterine and vaginal bleeding, unspecified (principal); Z32.02 Encounter for pregnancy test, result negative
CPT/HCPCS: 99203

== ENCOUNTER 2023-06-25 11:32 | Outpatient (REF) | payer OTHER, SELFPAY ==
[2023-07-02 04:18] LABS: HPV mRNA E6/E7 rflx Not Detected (Not Detected)
== END 2023-06-25 11:33 | disposition home or self-care (01) ==
LOC: HO.LNP 11:32
PROVIDERS: PCP Pediatrics; Visit Provider Obstetrics & Gynecology
DX: Z12.4 Encounter for screening for malignant neoplasm of cervix (principal); Z11.51 Encounter for screening for human papillomavirus (HPV); N93.9 Abnormal uterine and vaginal bleeding, unspecified
CPT/HCPCS: 81025; 87624; 88142; 99202

== ENCOUNTER 2023-06-25 12:00 | Outpatient (REF) | payer OTHER, SELFPAY ==
[2023-06-25 14:02] LABS: Hemoglobin 10.5 g/dl (12.0-16.0); Mean Corpuscular HGB Conc 30.9 g/dl (31.0-35.0); Mean Corpuscular Hemoglobin 24.8 pg (27.0-33.0); Mean Corpuscular Volume 80.4 fL (80.0-98.0); Mean Platelet Volume 12.1 fL (9.4-12.3); Platelet Count 182 X10*3/uL (160-400); Red Blood Count 4.23 X10*6/uL (4.20-5.50); Red Cell Distribution Width 14.5 % (11.0-16.0); White Blood Count 6.9 X10*3/uL (4.8-10.8)
[2023-06-25 17:07] LABS: HCG Quantitative < 2 mIU/mL
[2023-06-25 18:36] LABS: CT PCR NOT DETECTED (Not Detect.); NG PCR NOT DETECTED (Not Detect.)
[2023-06-25 20:24] LABS: TSH reflex Free T4 1.89 uIU/mL (0.32-4.0)
[2023-06-26 18:33] LABS: Follicle Stimulating Hormone 7.4 mIU/mL; Lutenizing Hormone 5.9 mIU/mL; Prolactin 6.3 ng/mL
== END 2023-06-25 12:01 | disposition home or self-care (01) ==
LOC: HO.LAB 12:00
PROVIDERS: PCP Pediatrics; Visit Provider Obstetrics & Gynecology
DX: N93.9 Abnormal uterine and vaginal bleeding, unspecified (principal); Z20.2 Contact with and (suspected) exposure to infections with a predominantly sexual mode of transmission
CPT/HCPCS: 0353U; 83001; 83002; 84146; 84443; 84702; 85027

== ENCOUNTER 2023-07-02 15:04 | Outpatient (REF) | payer OTHER, SELFPAY ==
--- NOTE | ~2023-07-02 | MM_ITS ---
EXAMINATION: MM SCREENING DIGITAL BREAST TOMOSYNTHESIS, BILATERAL CLINICAL INFORMATION: Screening. Asymptomatic. The lifetime risk of breast cancer based on the Tyrer-Cuzick Model is 11.4%. COMPARISON: Mammography: This study is compared with prior exams dating back to 2012. TECHNIQUE: Digital breast tomosynthesis is performed in both the craniocaudal and mediolateral oblique views along with computer-aided detection (CAD). Synthesized 2D images are generated from the tomosynthesis. FINDINGS: There are scattered areas of fibroglandular density (ACR BI-RADS breast composition Category b). There are no significant masses, abnormal calcifications, or other abnormalities. MM/MM tomosynthesis screening BI IMPRESSION: No mammographic evidence of malignancy. ASSESSMENT: BI-RADS BI-RADS 1 - Negative RECOMMENDATION: Routine annual mammography screening. 1 year F/U This examination should not preclude the clinical evaluation of a suspicious palpable abnormality. This patient's information was entered into a reminder system with a target due date for their next mammogram.
== END 2023-07-02 15:05 | disposition home or self-care (01) ==
LOC: HO.MAMMO 15:04
PROVIDERS: PCP Pediatrics; Visit Provider Obstetrics & Gynecology
DX: Z12.31 Encounter for screening mammogram for malignant neoplasm of breast (principal)
CPT/HCPCS: 77063; 77067

== ENCOUNTER → 2023-07-02 15:15 | Outpatient (BNV) | payer OTHER, SELFPAY | PROVIDERS: PCP Pediatrics; Visit Provider Radiology Diagnostic Radiology | DX: Z12.31 Encounter for screening mammogram for malignant neoplasm of breast (principal) | CPT/HCPCS: 77063; 77067 ==

== ENCOUNTER 2023-07-09 11:31 | Outpatient (REF) | payer OTHER, SELFPAY ==
--- NOTE | ~2023-07-09 | US_ITS ---
EXAMINATION: US PELVIS COMPLETE CLINICAL INFORMATION: Abnormal uterine and vaginal bleeding; the last menstrual period was on 06/08/2023. COMPARISON: CT abdomen and pelvis dated 07/21/2019. TECHNIQUE: Transabdominal and transvaginal imaging were performed. FINDINGS: The uterus is of normal size and echogenicity, measuring 12.2 x 4.6 x 6.2 cm. A regular homogeneous endometrium is identified measuring 1.8 cm. FIBROIDS: There are 4 fibroids seen. 1. Location: Upper body, subendometrial. Size: 1.1 x 0.7 x 1.0 cm. Fibroid characteristics: Hypoechoic. 2. Location: Posterior mid body, subendometrial. Size: 1.1 x 1.0 x 1.0 cm. Fibroid characteristics: Hypoechoic. 3. Location: Anterior lower body, subserosal. Size: 1.1 x 1.0 x 1.1 cm. Fibroid characteristics: Hypoechoic. 4. Location: Posterior fundus, myometrial. Size: 1.4 x 1.3 x 1.2 cm. Fibroid characteristics: Hypoechoic. Both ovaries are of normal size and echogenicity. The right ovary measures 2.9 x 3.1 x 2.0 cm for a volume of 9.4 mL. There are small physiologic right ovarian follicles. The left ovary measures 3.1 x 2.4 x 2.5 cm, for a volume of 9.7 mL. A 1.7 cm in maximal diameter dominant left ovarian simple follicle is noted. This requires no imaging follow-up. There is no pelvic free fluid. US/US pelvic and transvaginal IMPRESSION: 1. Multiple small uterine fibroids are seen, as detailed. 2. There is abnormal endometrial stripe thickening to 1.8 cm. Gynecology evaluation and management are recommended, with consideration for tissue sampling, if clinically appropriate.
== END 2023-07-09 11:32 | disposition home or self-care (01) ==
LOC: HO.US 11:31
PROVIDERS: PCP Pediatrics; Visit Provider Obstetrics & Gynecology
DX: N93.9 Abnormal uterine and vaginal bleeding, unspecified (principal)
CPT/HCPCS: 76830; 76856

== ENCOUNTER 2023-08-20 09:57 | Outpatient (AMB) | payer OTHER, SELFPAY ==
--- NOTE | 2023-08-20 10:00 | MHC.OFFVIS ---
Intake Vital Signs 08/20/23 10:04 Height 5 ft 3 in Weight 198 lb 6.656 oz BMI 35.1 BP 122/80 Intake Visit Reasons: Ultrasound follow up/EMB/Pap only Manufacturing Finance Manager Required: No Information Interpreted: non-clinical & clinical Director Funeral: Director Funeral Present (Yessy Talavera KAREN) Accompanied by: Self / Same As Patient Allergies acetaminophen [From PERCOCET] Allergy (Unknown, Verified 08/20/23 10:09) Nausea and Vomiting oxycodone [From PERCOCET] Allergy (Unknown, Verified 08/20/23 10:09) Nausea and Vomiting amoxicillin Adverse Reaction (Verified 08/20/23 10:09) Nausea and Vomiting Is last menstrual period known: Yes HPI HPI Comments History of Present Illness Details Presenting for EMB and repeat Pap, last Pap smear was HPV negative but was satisfactory PFSH Medical History Hypertension Hx of malignant neoplasm of gallbladder Tubal ligation evaluation Kidney stones Surgical History History of esophagogastroduodenoscopy (EGD) Previous back surgery History of lumbar fusion Tubal ligation status History of cholecystectomy H/O hand surgery History of ankle surgery H/O knee surgery S/P removal of thyroid nodule Hx of appendectomy Social History Household Members: Family Alcohol intake: current Alcohol intake frequency: a few times a month Patient Tobacco Use Status: Never used Tobacco Review of Systems Const All systems reviewed & are unremarkable except as noted in HPI and below Physical Exam General: Yes no CVA tenderness External Female Exam: normal external appearance and normal appearance of the urethra Speculum Exam - Vagina: normal appearance of the vagina, normal palpation, no lesions and no masses Speculum Exam - Cervix: normal appearance of the cervix, normal palpation, no lesions, no masses and nontender Bimanual exam- vagina & uterus: normal bimanual exam, normal palpation, uterine size normal, normal palpation, uterine shape normal, No Cervical tenderness present and non-tender Bimanual Exam- Adnexa, other: normal adnexae Back/Spine/Pelvis Back: no CVA tenderness Office Procedures Endometrial Biopsy Details: The patient was counseled regarding the indication and benefits of endometrial sampling to rule out endometrial pathology including not limited to endometrial hyperplasia or endometrial cancer and others; The alternatives (Either do nothing vs. hysteroscopy D&C) & the risks were discussed with the patient including but not limited: pain, uterine perforation, bleeding, infection, possible injury to bladder, bowel, ureter, possible need for blood transfusion with all its possible risks. The patient verbalized understanding all questions answered and signed consent. Urine test done in the office was negative The patient was placed into the dorsal lithotomy position; a speculum was inserted in the vagina. Using aseptic technique for the procedure, the cervix was cleansed with Betadine. The anterior lip of the cervix was grasped with a single tooth tenaculum. The uterus was sounded to 11 cm with a 4 mm Pipelle was used. Tissues samples were obtained and placed in formalin, in a patient labeled container and sent to the pathology department. At the end of the procedure, there was minimal bleeding noted The patient tolerated the procedure well and was discharged in good condition with the following instructions: Nothing in the vagina until the bleeding stops. No sex until the bleeding stops, to call if any of the following occurs: fever (>100.4), flu-like symptoms, abdominal pain, heavy bleeding, four smelling vaginal discharge. The patient was instructed to schedule a Follow up appointment in 2 weeks to discuss pathology results of the biopsy and treatment options. This note was generated with a voice recognition program. Some errors may have been overlooked during the review of this note. Sometimes these errors may affect the content or meaning of a given sentence. [id number] Biopsy Assessment & Plan Assessment & Plan (1) Abnormal uterine bleeding: Code(s): N93.9 - Abnormal uterine and vaginal bleeding, unspecified Plan: EMB done, see procedure note (2) Unsatisfactory cervical Papanicolaou smear: Code(s): R87.615 - Unsatisfactory cytologic smear of cervix Plan: Pap repeated Orders: Orders AMB Endometrial Biopsy Today N93.9 - Abnormal uterine and vaginal bleeding, unspecified Coding Level of Care Code Est Pt Level 3 (81647) Procedure Only Diagnoses Abnormal uterine bleeding N93.9 Unsatisfactory cervical Papanicolaou smear R87.615 CPT Codes Endometrial Biopsy - CPT: 44003-[id number] Biopsy ([id number])
[2023-08-20 10:04] VITALS: BP 122/80; BMI 35.1
== END 2023-08-20 10:14 | disposition home or self-care (01) ==
LOC: HO.HWS 09:57
PROVIDERS: PCP Pediatrics; Visit Provider Obstetrics & Gynecology
DX: N93.9 Abnormal uterine and vaginal bleeding, unspecified (principal); R87.615 Unsatisfactory cytologic smear of cervix; Z32.02 Encounter for pregnancy test, result negative
CPT/HCPCS: 58100

== ENCOUNTER 2023-08-20 09:57 | Outpatient (REF) | payer OTHER, SELFPAY | END 2023-08-20 09:58 | disposition home or self-care (01) | LOC: HO.LNP 09:57 | PROVIDERS: PCP Pediatrics; Visit Provider Obstetrics & Gynecology | DX: N93.9 Abnormal uterine and vaginal bleeding, unspecified (principal); R87.615 Unsatisfactory cytologic smear of cervix | CPT/HCPCS: 58100; 81025; 88142; 88305 ==

== ENCOUNTER 2023-09-04 10:36 | Outpatient (AMB) | payer OTHER, SELFPAY ==
[2023-09-04 10:54] VITALS: BP 130/92; BMI 35.1
--- NOTE | 2023-09-04 10:54 | MHC.OFFVIS ---
Intake Vital Signs 09/04/23 10:54 Height 5 ft 3 in Weight 198 lb 6.656 oz BMI 35.1 BP 130/92 H Intake Visit Reasons: pre op Fill Technician Required: No Information Interpreted: non-clinical & clinical Educational Interpreter: Educational Interpreter Present Accompanied by: Father Allergies acetaminophen [From PERCOCET] Allergy (Unknown, Verified 09/04/23 10:57) Nausea and Vomiting oxycodone [From PERCOCET] Allergy (Unknown, Verified 09/04/23 10:57) Nausea and Vomiting amoxicillin Adverse Reaction (Verified 09/04/23 10:57) Nausea and Vomiting Is last menstrual period known: Yes Last menstrual period: 09/29/20 Post menopausal: No Patient : No Do you need a note to return to daycare/school/sports/work: Yes (for surgery on saturday) HPI HPI Comments History of Present Illness Details Presenting for follow-up after endometrial biopsy. Doing well with no complaints. The pathology showed the following: Disordered proliferative endometrium with breakdown; focal features of polyp; no atypia identified [facility], [facility] Medical History Hypertension Hx of malignant neoplasm of gallbladder Tubal ligation evaluation Kidney stones Surgical History History of esophagogastroduodenoscopy (EGD) Previous back surgery History of lumbar fusion Tubal ligation status History of cholecystectomy H/O hand surgery History of ankle surgery H/O knee surgery S/P removal of thyroid nodule Hx of appendectomy Social History Household Members: Family Alcohol intake: current Alcohol intake frequency: a few times a month Patient Tobacco Use Status: Never used Tobacco Female Reproductive History Menstrual Date of last menstrual period: 09/29/20 Total pregnancies: 2 Full term: 2 Review of Systems Card Reports as per HPI and Reports no additional complaints Resp Reports as per HPI and Reports no additional complaints GI Reports as per HPI and Reports no additional complaints Reports as per HPI Physical Exam Const General: cooperative, healthy appearing and comfortable Chest Chest palpation & inspection: normal inspection of the chest and normal palpation of entire chest wall Breast/axilla inspection: normal inspection of the breasts and normal inspection of the axillae Breast/axilla palpation: normal palpation of the breasts, normal palpation of the axillae and no axillary lymphadenopathy Resp Effort & Inspection: normal respiratory effort Auscultation: clear to auscultation bilaterally Percussion: percussion normal Cardio Palpation: normal PMI Rate: regular rate Rhythm: regular rhythm Heart sounds: no murmurs and no rubs Peripheral pulses: Peripheral pulses 2+ throughout GI Inspection: Yes normal to inspection Palpation (GI): Soft to palpation, nontender, no guarding, not rigid and No hepatosplenomegaly present Percussion: Yes normal to percussion Auscultation: normal bowel sounds Rectal Exam - Female: deferred Assessment & Plan Assessment & Plan (1) Abnormal uterine bleeding: Comment: Endometrial polyp on EMB pathology Code(s): N93.9 - Abnormal uterine and vaginal bleeding, unspecified Plan: Discussed with the patient the results the pathology showing features of endometrial polyp, recommended hysteroscopy D&C possible polypectomy/myomectomy. Discussed with the patient the procedure , all benefits and risks including but not limited to inability to complete the procedure , bleeding, infection, possible need for blood transfusion with all its risk ( HIV,syphilis, Hepatitis, anaphylaxis shock, others..), injury to bladder, rectum, possible need for laparoscopy/laparotomy or hysterectomy. The patient verbalized understanding and signed the consent. Instructions given the patient to schedule a 2 week postoperative appointment Coding Level of Care Code Est Pt Level 3 (73495) Diagnoses Abnormal uterine bleeding N93.9
== END 2023-09-04 11:16 | disposition home or self-care (01) ==
PROVIDERS: PCP Pediatrics; Visit Provider Obstetrics & Gynecology
DX: N93.9 Abnormal uterine and vaginal bleeding, unspecified (principal)
CPT/HCPCS: 99213

== ENCOUNTER → 2023-09-04 10:36 | Outpatient (BNVA) | payer OTHER, SELFPAY | PROVIDERS: PCP Pediatrics; Visit Provider Obstetrics & Gynecology | DX: N93.9 Abnormal uterine and vaginal bleeding, unspecified (principal); Z98.890 Other specified postprocedural states | CPT/HCPCS: 99212 ==

== ENCOUNTER 2023-09-20 11:04 | Day surgery (SDC) | payer OTHER, SELFPAY ==
[2023-09-20 11:18] VITALS: BMI 34.0
[2023-09-20 11:27] VITALS: BP 159/86; PULSE 73; RESP 18; TEMP 37.2; O2SAT 97; BMI 34.0
[2023-09-20 11:35] LABS: UPreg QC Valid YES; Urine Pregnancy NEGATIVE (NEGATIVE)
[2023-09-20] MEDS: Lactated Ringers 1,000 ML 50 ML IVCONT (12:04)
--- NOTE | 2023-09-20 12:17 | MHC.SHP ---
Pre-Procedural Eval Section A Date of Service: 09/20/23 The patient is an INPATIENT: No Changes since office visit: No Cold of Flu in the past 2 weeks, No New Medical Problems, No Changes in Medication and No Patient answered all questions The History & Physical has been completed within 30 days and I have reviewed it.: Yes Section B Chief Complaint: Abnormal uterine and vaginal bleeding, unspecified Allergies: Allergies Allergy/AdvReac Type Severity Reaction Status Date / Time acetaminophen [From PERCOCET] Allergy Unknown Nausea and Verified 09/04/23 10:57 Vomiting oxycodone [From PERCOCET] Allergy Unknown Nausea and Verified 09/04/23 10:57 Vomiting amoxicillin AdvReac Nausea and Verified 09/04/23 10:57 Vomiting Plan Diagnosis/Plan: Unchanged I have reviewed the history and physical and performed a pertinent physical examination on my patient. No changes have occurred unless specified. Time Spent With Patient Time: Total time managing care of this patient today ____ minutes.
--- NOTE | 2023-09-20 12:42 | HO.ANESPROP2 ---
HPI - Anesthesia Eval Consult details Narrative: for D&C PMFSH Active Problems Active Problems: All Active Problems (Updated 09/04/23 @ 10:59 by Dario Castaneda MD) Unsatisfactory cervical Papanicolaou smear (Acute) Abnormal uterine bleeding (Acute) COVID-19 (Acute) Past Medical History Medical History Hypertension Hx of malignant neoplasm of gallbladder Tubal ligation evaluation Kidney stones Patient : No Family History Family history of problems with anesthesia: No Surgical History Surgical History History of esophagogastroduodenoscopy (EGD) Previous back surgery History of lumbar fusion Tubal ligation status History of cholecystectomy H/O hand surgery History of ankle surgery H/O knee surgery S/P removal of thyroid nodule Hx of appendectomy History of Problems with Anesthesia: No Social History Social History Household Members: Family Alcohol intake: current Alcohol intake frequency: holidays/special occasions only Patient Tobacco Use Status: Never used Tobacco Use of substances other than those prescribed or required for medical reasons: No Are you DNR?: No Advance Directives: No Advance Directives Information Provided: Yes Meds Allergies Allergy/AdvReac Type Severity Reaction Status Date / Time acetaminophen [From PERCOCET] Allergy Unknown Nausea and Verified 09/04/23 10:57 Vomiting oxycodone [From PERCOCET] Allergy Unknown Nausea and Verified 09/04/23 10:57 Vomiting amoxicillin AdvReac Nausea and Verified 09/04/23 10:57 Vomiting Active Medications: Current Medications Lactated Ringer's (Lr) 1,000 mls @ 50 mls/hr IVCONT .Q20H KARLA Last Admin: 09/20/23 12:04 Dose: 50 mls/hr Home Medications Medication Instructions Recorded Confirmed Last Taken Type hydrochlorothiazide 12.5 mg tablet 12.5 mg PO DAILY 02/01/23 02/28/23 Unknown History sulfamethoxazole 400 1 tab PO DIRECTED 02/01/23 02/28/23 Unknown History mg-trimethoprim 80 mg tablet Exam Exam Date and Time: September 20, 2023 1242 Height,Weight and Vital Signs: Height 5 ft 4 in Weight 89.811 kg Last Vital Signs Temp 98.9 F 09/20/23 11:27 Pulse 73 09/20/23 11:27 Resp 18 09/20/23 11:27 BP 159/86 H 09/20/23 11:27 Pulse Ox 97 09/20/23 11:27 O2 Del Method Room Air 09/20/23 11:27 Pertinent Lab Results Pertinent Lab Results: Laboratory Tests 09/20/23 11:05 Urine Test NEGATIVE Airway Mallampati Class: I TM Dist: <=3cm Neck ROM: Full Loose/Missing/Broken Teeth: No Heart: ok Lungs: ok Assessment and Plan Assessment Anesthesia Assessment: Anesthesia Plan Discussed and Chart Reviewed Final Anesthetic Review Family History of Problems with Anesthesia: No History of Problems with Anesthesia: No NPO: Yes ASA Class: II Final Preanesthetic Review: No Changes in Pt Med Stat, Meds/Allgs Chart Reviewed, Consent Obtained/Reviewed and Anes Risks/Benef Reviewed Patient Risk: Low Procedure Risk: Low Anesthetic Plan Anesthetic Plan: GA and Agree w/ Assess. and Plan Disposition: Standard PACU
--- NOTE | 2023-09-20 13:25 | P.OP_ITS ---
Operative Note Operative Note Date of Service: 09/20/23 Narrative: Preop Diagnosis: Abnormal uterine bleeding, Endometrial polyp by EMB pathology Operation: Diagnostic Hysteroscopy, Dilataion & Curettage and polypectomy Post Op Diagnosis: Endometrial Polyp QBL: Minimal Anesthesia: GLMA Surgeon: Dario Castaneda MD Waste/Materials Exchange Specialist: None Complication: None Pathology: Endometrial Scrapings, Endometrial polyp Procedure: The patient was put in the dorsal lithotomy position, scrubbed, and draped in the usual manner. A sterile speculum was inserted in the patient's vagina. The anterior lip of the cervix was grasped with a single tooth tenaculum. The cervix was dilated up to 5 mm, then the scope was inserted in the patient's uterus. Inspection revealed endometrial polyp. The Myosure Reach device was used; it was introduced through the operative channel and polypectomy done with no complications. The scope was then taken out from the uterine cavity, sharp curettings was carried on with minimal to moderate amount of tissues retrieved. At the end of the procedure, all instruments were taken out of the patient uterine and vaginal cavity. The single tooth tenaculum was removed and homeostasis was assured using pressure,. The patient tolerated the procedure well and was transferred to the PACU in a stable condition.
--- NOTE | 2023-09-20 13:25 | P.BOP_ITS ---
Brief Operative Note Date of Service: 09/20/23 Pre-op diagnosis: AUB, endometrial polyp on EMB pathology Post-op diagnosis: same (Endometrial polyp) Procedure: Hysteroscopy D&C, Polypectomy Surgeon: Dario Castaneda MD Anesthesia: GLMA Was an Sales Effectiveness Manager used for this Procedure?: No Estimated blood loss (mL): 0 Pathology: other (Endometrial Scrapping. Polyp) Condition: stable Disposition: PACU
[2023-09-20 13:35] VITALS: BP 130/77; PULSE 61; RESP 12; TEMP 36.3; O2SAT 97
[2023-09-20 13:40] VITALS: BP 132/78; PULSE 56; RESP 13; O2SAT 97
[2023-09-20 13:45] VITALS: BP 139/74; PULSE 56; RESP 10; O2SAT 96
[2023-09-20 13:50] VITALS: BP 129/81; PULSE 68; RESP 10; TEMP 36.6; O2SAT 97
[2023-09-20 14:05] VITALS: BP 148/81; PULSE 66; RESP 12; TEMP 36.4; O2SAT 98
== END 2023-09-20 14:33 | disposition home or self-care (01) ==
PROVIDERS: PCP Pediatrics; Visit Provider Obstetrics & Gynecology
PROC: 0UDB8ZZ Extraction of Endometrium, Via Natural or Artificial Opening Endoscopic (ICD-10-PCS; CPT 58558; principal; 2023-09-20 13:00)
DX: N93.9 Abnormal uterine and vaginal bleeding, unspecified (principal); N84.0 Polyp of corpus uteri; Z98.51 Tubal ligation status; I10 Essential (primary) hypertension; Z79.899 Other long term (current) drug therapy; Z88.1 Allergy status to other antibiotic agents; Z88.5 Allergy status to narcotic agent; Z85.09 Personal history of malignant neoplasm of other digestive organs; Z90.49 Acquired absence of other specified parts of digestive tract; Z98.890 Other specified postprocedural states
CPT/HCPCS: 58558; 81025; 88305; J1885; J2405; J3010

== ENCOUNTER → 2023-09-20 11:04 | Outpatient (BNV) | payer OTHER, SELFPAY | PROVIDERS: PCP Pediatrics; Visit Provider Obstetrics & Gynecology | DX: N84.1 Polyp of cervix uteri (principal); N93.9 Abnormal uterine and vaginal bleeding, unspecified | CPT/HCPCS: 58558 ==

== ENCOUNTER 2023-09-25 11:32 | Outpatient (AMB) | payer OTHER, SELFPAY ==
[2023-09-25 11:37] VITALS: BP 165/94; PULSE 75; O2SAT 99; BMI 35.1
--- NOTE | 2023-09-25 11:37 | MHC.OFFVIS ---
Intake Vital Signs 09/25/23 11:37 Height 5 ft 3 in Weight 197 lb 15.602 oz BMI 35.1 BP 165/94 H Blood Pressure Location Lt brachial Position Sitting Pulse 75 Pulse Source Pulse Oximeter Pulse Oximetry (%) 99 Oxygen Delivery Method Room Air Intake Visit Reasons: per Carmen Intake Note: Pt presents to the office today for a follow up for constipations and GERD. Pt states she is doing much better and hasn't had a lot of GERD or constipation recently. Pt states she changed up her diet and believes it is helping. Pt denies and GI issues at this time. Allergies acetaminophen [From PERCOCET] Allergy (Unknown, Verified 10/08/23 15:14) Nausea and Vomiting oxycodone [From PERCOCET] Allergy (Unknown, Verified 10/08/23 15:14) Nausea and Vomiting amoxicillin Adverse Reaction (Verified 10/08/23 15:14) Nausea and Vomiting HPI per Carmen HPI Details LAST VISIT Menorrhagia Referral sent to see supervisor precision optical elements GERD (gastroesophageal reflux disease) Continue pantoprazole. Continue avoiding dietary triggers and late night snacking. Staying upright for minimum 3 hours after meals discussed with patient Postprandial epigastric pain Occasional postprandial epigastric discomfort and bloating. Patient was encouraged to avoid dietary triggers as discussed above Constipation Encouraged patient to increase fluid intake and activity to promote better bowel motility. Increase vegetables in her diet. I will see patient in 3 months to discuss colonoscopy and possibly upper endoscopy. Patient is agreeable to this plan and verbalizes understanding of instructions. She will schedule the colonoscopy and upper endoscopy today. She was given the opportunity to ask questions and all questions answered. ? TODAY'S VISIT Patient is here today for follow-up and to discuss going for upper endoscopy colonoscopy. Patient reports that she has been doing better, changed her diet and her symptoms of acid reflux are suppressed for the most part. Patient is taking on as needed basis famotidine usually at nighttime. Patient denies eating late at night. Denies any issues with anesthesia in the past. No history of sleep apnea. Not on any anticoagulation medications. No history of infectious diseases in the past or present. Unaware of any family history of colorectal cancer. Patient denies any cardiac or respiratory symptoms. No history cardiac, pulmonary, renal, hepatic disease. [facility] Medical History Hypertension Hx of malignant neoplasm of gallbladder Tubal ligation evaluation Kidney stones Surgical History History of esophagogastroduodenoscopy (EGD) Previous back surgery History of lumbar fusion Tubal ligation status History of cholecystectomy H/O hand surgery History of ankle surgery H/O knee surgery S/P removal of thyroid nodule Hx of appendectomy Social History Household Members: Family Alcohol intake: current Alcohol intake frequency: holidays/special occasions only Patient Tobacco Use Status: Never used Tobacco Review of Systems Const Denies weight gain and Denies weight loss ENT Reports no additional complaints, Denies dysphagia and Denies odynophagia Card Reports no additional complaints Resp Reports no additional complaints GI Denies abdominal pain, Denies belching, Denies melena, Denies bloating, Denies change in bowel habits, Reports constipation (Occasional), Denies dysphagia, Denies excessive flatus, Denies dyspepsia, Reports heartburn (Occasional), Denies diarrhea, Denies loose stools, Denies nausea, Denies odynophagia and Denies vomiting Reports no additional complaints Musc Reports no additional complaints Neuro Reports no additional complaints Psych Reports no additional complaints Endo Reports no additional complaints Physical Exam Vital Signs: Last Vital Signs Pulse 75 09/25/23 11:37 BP 165/94 H 09/25/23 11:37 Pulse Ox 99 09/25/23 11:37 Oxygen Delivery Method Room Air 09/25/23 11:37 BMI result Body Mass Index 35.1 Const General: healthy appearing, no acute distress and well developed Nutritional Appearance: obese Orientation/consciousness: patient oriented x3 HEENT Head: Yes normal to inspection, Yes normocephalic and Yes atraumatic Face and sinus: Yes normal facial exam Mouth: Normal oral and palatal mucosa present Throat: Yes posterior oropharynx normal, Yes tonsils normal and Yes uvula midline Eyes General: appearance normal, both eyes and all related structures Neck Neck: Yes normal visual inspection, Yes full ROM and Yes trachea midline Thyroid: Thyroid normal Resp Effort & Inspection: normal respiratory effort, able to speak in complete sentences, no tracheal deviation and symmetric chest movement Auscultation: clear to auscultation bilaterally Cardio Rate: regular rate Heart sounds: S1 normal heart sound present and S2 normal heart sound present GI Inspection: Yes normal to inspection, No distended and Yes obesity Palpation (GI): Soft to palpation, not firm, nontender and No hepatosplenomegaly present Auscultation: normal bowel sounds General: Yes no CVA tenderness Back/Spine/Pelvis Back: no CVA tenderness Skin General skin exam: elasticity normal, turgor normal and dry skin Neuro General: patient oriented x3 Psych Appearance: grossly normal Mental Status: mental status grossly normal Affect: normal affect Assessment & Plan Assessment & Plan (1) GERD (gastroesophageal reflux disease): Code(s): K21.9 - Gastro-esophageal reflux disease without esophagitis Qualifiers: Esophagitis bleeding: without hemorrhage Esophagitis presence: with esophagitis Qualified Code(s): K21.00 - Gastro-esophageal reflux disease with esophagitis, without bleeding (2) Postprandial epigastric pain: Code(s): R10.13 - Epigastric pain (3) Constipation: Code(s): K59.00 - Constipation, unspecified Qualifiers: Constipation type: slow transit constipation Qualified Code(s): K59.01 - Slow transit constipation (4) Screen for colon cancer: Code(s): Z12.11 - Encounter for screening for malignant neoplasm of colon Plan Patient will continue avoiding dietary triggers in late night snacking. Will send her for upper endoscopy as well. Patient had upper endoscopy in January and showed duodenitis, gastritis. Currently she is feeling better, however occasionally she will have symptoms. Patient did change her diet. Patient denies any dyspepsia, dysphagia or odynophagia. Occasional acid reflux, taking famotidine on as needed basis. Patient will go for colonoscopy. No issues with anesthesia in the past. Not on anticoagulation medication. Patient denies any cardiac or respiratory symptoms. Reports that she is moving her bowels better now. Patient will do split MiraLax prep with for Dulcolax tablets at noon day before the procedure. Discussed with patient what to expect before during and after the procedure. Good bowel prep and clear liquid diet day before procedure stressed with patient. I will see her after the procedure, sooner on as needed basis. Patient is agreeable to this plan and verbalizes understanding of instructions. She was given the opportunity to ask questions and all questions answered. Thank you for allowing me to participate in her care Coding Level of Care Code Est Pt Level 4 (64392) Diagnoses Gastroesophageal reflux disease with esophagitis without hemorrhage K21.00 Esophagitis bleeding: without hemorrhage Esophagitis presence: with esophagitis Postprandial epigastric pain R10.13 Slow transit constipation K59.01 Constipation type: slow transit constipation Screen for colon cancer Z12.11 Time Spent (min) 35 Comment 25 minute spent with patient and additional 10 minutes spent reviewing her records
== END 2023-09-25 12:03 | disposition home or self-care (01) ==
PROVIDERS: PCP Pediatrics; Visit Provider Nurse Practitioner Family
DX: K21.00 Gastro-esophageal reflux disease with esophagitis, without bleeding (principal); R10.13 Epigastric pain; K59.01 Slow transit constipation; Z12.11 Encounter for screening for malignant neoplasm of colon
CPT/HCPCS: 99214

== ENCOUNTER → 2023-09-25 11:32 | Outpatient (BNVA) | payer OTHER, SELFPAY | PROVIDERS: PCP Pediatrics; Visit Provider Nurse Practitioner Family | DX: Z12.11 Encounter for screening for malignant neoplasm of colon (principal); K21.00 Gastro-esophageal reflux disease with esophagitis, without bleeding; K59.01 Slow transit constipation; R10.13 Epigastric pain | CPT/HCPCS: 99212 ==

== ENCOUNTER 2023-10-08 15:08 | Outpatient (AMB) | payer OTHER, SELFPAY ==
[2023-10-08 15:13] VITALS: BP 122/74; BMI 34.8
--- NOTE | 2023-10-08 15:13 | MHC.OFFVIS ---
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 Required: No Information Interpreted: non-clinical & clinical Accompanied by: Self / Same As Patient Allergies acetaminophen [From PERCOCET] Allergy (Unknown, Verified 10/08/23 15:14) Nausea and Vomiting oxycodone [From PERCOCET] Allergy (Unknown, Verified 10/08/23 15:14) Nausea and Vomiting amoxicillin Adverse Reaction (Verified 10/08/23 15:14) Nausea and Vomiting Is last menstrual period known: Yes Last menstrual period: 09/29/23 HPI HPI Comments History of Present Illness Details The patient is presenting post hysteroscopy D&C no complaints minimal vaginal bleeding no feverishness chills or abdominal pain. The pathology showed the following: A. Endometrial polyp, resection: Fragments of benign smooth muscle consistent with submucosal leiomyoma, and fragments of benign proliferative endometrium; no atypia or carcinoma. B. Endometrium, curettage: Benign proliferative endometrium, scant fragments of benign smooth muscle consistent with submucosal leiomyoma, and scant fragments of benign endocervical glandular and squamous epithelium; no atypia or carcinoma The following workup was done.: H&H= 10.5/34 TSH, hCG, prolactin, GC and chlamydia were negative. FSH/LH in the premenopausal range Endometrial biopsy pathology showed no evidence of hyperplasia and/or malignancy. Co testing was done was negative. Mammogram was negative. Pelvic ultrasound showed the following: The uterus is of normal size and echogenicity, measuring 12.2 x 4.6 x 6.2 cm. A regular homogeneous endometrium is identified measuring 1.8 cm. FIBROIDS: There are 4 fibroids seen. 1. Location: Upper body, subendometrial. Size: 1.1 x 0.7 x 1.0 cm. Fibroid characteristics: Hypoechoic. 2. Location: Posterior mid body, subendometrial. Size: 1.1 x 1.0 x 1.0 cm. Fibroid characteristics: Hypoechoic. 3. Location: Anterior lower body, subserosal. Size: 1.1 x 1.0 x 1.1 cm. Fibroid characteristics: Hypoechoic. 4. Location: Posterior fundus, myometrial. Size: 1.4 x 1.3 x 1.2 cm. Fibroid characteristics: Hypoechoic. Both ovaries are of normal size and echogenicity. The right ovary measures 2.9 x 3.1 x 2.0 cm for a volume of 9.4 mL. There are small physiologic right ovarian follicles. The left ovary measures 3.1 x 2.4 x 2.5 cm, for a volume of 9.7 mL. A 1.7 cm in maximal diameter dominant left ovarian simple follicle is noted. This requires no imaging follow-up. There is no pelvic free fluid. [facility] Medical History Hypertension Hx of malignant neoplasm of gallbladder Tubal ligation evaluation Kidney stones Surgical History History of esophagogastroduodenoscopy (EGD) Previous back surgery History of lumbar fusion Tubal ligation status History of cholecystectomy H/O hand surgery History of ankle surgery H/O knee surgery S/P removal of thyroid nodule Hx of appendectomy Social History Household Members: Family Alcohol intake: current Alcohol intake frequency: holidays/special occasions only Patient Tobacco Use Status: Never used Tobacco Female Reproductive History Menstrual Date of last menstrual period: 09/29/23 Review of Systems Const All systems reviewed & are unremarkable except as noted in HPI and below Reports as per HPI and Reports no additional complaints GI Reports no additional complaints Reports no additional complaints Physical Exam Vital Signs: Last Vital Signs BP 122/74 10/08/23 15:13 BMI result Body Mass Index 34.8 Assessment & Plan Assessment & Plan (1) Abnormal uterine bleeding: Code(s): N93.9 - Abnormal uterine and vaginal bleeding, unspecified Plan: Iron sulfate 325 mg p.o. q.d. for repeat CBC in 4 weeks. Discussed with the patient the results of the work up done and options of treatment including Lysteda, control pills, Mirena IUD, endometrial ablation and hysterectomy. All pros, cons, risks and benefits if each option was discussed with the patient and the patient decided to think about it and get back to [facility]. (2) Uterine myoma: Comment: Anemia Code(s): D25.9 - Leiomyoma of uterus, unspecified Plan: Discussed with the patient the findings on pelvic ultrasound & the risk of myosarcoma; discussed with the patient the options of treatment including expectant management versus hysterectomy; the pros and cons, risks benefits of each approach were discussed with the patient including the fact that in cases of myosarcoma, surgical treatment can lead to early diagnosis and positively affects the prognosis; after further discussion, the patient decided to think about it and get back to us as soon as possible. All questions answered, the patient verbalized understanding and agreed with the plan . Orders: Orders Complete Blood Count no Diff Today N93.9 - Abnormal uterine and vaginal bleeding, unspecified Coding Level of Care Code Est Pt Level 3 (27652) Diagnoses Abnormal uterine bleeding N93.9 Uterine myoma D25.9
== END 2023-10-08 16:04 | disposition home or self-care (01) ==
LOC: HO.HWS 15:08
PROVIDERS: PCP Pediatrics; Visit Provider Obstetrics & Gynecology
DX: N93.9 Abnormal uterine and vaginal bleeding, unspecified (principal); D25.9 Leiomyoma of uterus, unspecified
CPT/HCPCS: 99213

== ENCOUNTER → 2023-10-08 15:08 | Outpatient (BNVA) | payer OTHER, SELFPAY | PROVIDERS: PCP Pediatrics; Visit Provider Obstetrics & Gynecology | DX: N93.9 Abnormal uterine and vaginal bleeding, unspecified (principal); D25.9 Leiomyoma of uterus, unspecified | CPT/HCPCS: 99212 ==

== ENCOUNTER 2024-02-25 11:46 | Outpatient (AMB) | payer OTHER, SELFPAY ==
[2024-02-25 11:49] VITALS: BP 140/76; PULSE 75; BMI 35.8
--- NOTE | 2024-02-25 11:49 | MHC.OFFVIS ---
Intake Vital Signs 02/25/24 11:49 Height 5 ft 3 in Weight 202 lb 6.15 oz BMI 35.8 BP 140/76 H Blood Pressure Location Lt brachial Position Sitting Pulse 75 Intake Visit Reasons: Discuss repeating upper endoscopy and colonoscopy Intake Note: Fiona returns to in office follow up to discuss repeat EGD and colonoscopy. CC: Patient reports that she has been doing good because she changed her diet and have been avoiding sugars, rice, and carbs. She reports feeling good. 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 Will send her for upper endoscopy as well. Patient had upper endoscopy in January and showed duodenitis, gastritis. Currently she is feeling better, however occasionally she will have symptoms. Patient did change her diet. Patient denies any dyspepsia, dysphagia or odynophagia. Occasional acid reflux, taking famotidine on as needed basis. Patient will go for colonoscopy. No issues with anesthesia in the past. Not on anticoagulation medication. Patient denies any cardiac or respiratory symptoms. Reports that she is moving her bowels better now. Patient will do split MiraLax prep with for Dulcolax tablets at noon day before the procedure. Discussed with patient what to expect before during and after the procedure. Good bowel prep and clear liquid diet day before procedure stressed with patient. I will see her after the procedure, sooner on as needed basis. Patient is agreeable to this plan and verbalizes understanding of instructions. She was given the opportunity to ask questions and all questions answered. TODAY'S VISIT: Patient reports paternal grandmother had multiple intestinal issues that included CRC. Diagnosed in her 70s. Patient is here today to book procedure and discussed the prep again. Patient reports that she changed her diet and is feeling much better. Patient no longer is using PPI or H2 xiomara on a regular basis. Patient is only using on as needed basis. Patient eliminated carbs and sugars from her diet. Eating more vegetables. However patient wants to know if she should be on it daily. Upper endoscopy last year showed gastritis and esophagitis will repeat endoscopy as well [facility] Medical History Hypertension Hx of malignant neoplasm of gallbladder Tubal ligation evaluation Kidney stones Surgical History History of esophagogastroduodenoscopy (EGD) Previous back surgery History of lumbar fusion Tubal ligation status History of cholecystectomy H/O hand surgery History of ankle surgery H/O knee surgery S/P removal of thyroid nodule Hx of appendectomy Social History Household Members: Family Alcohol intake: current Alcohol intake frequency: holidays/special occasions only Patient Tobacco Use Status: Never used Tobacco Review of Systems Const Denies weight gain and Denies weight loss ENT Reports no additional complaints, Denies dysphagia and Denies odynophagia Card Reports no additional complaints Resp Reports no additional complaints GI Denies abdominal pain, Denies belching, Denies melena, Denies bloating, Denies change in bowel habits, Denies dysphagia, Denies excessive flatus, Denies dyspepsia, Denies heartburn, Denies diarrhea, Denies loose stools, Denies nausea, Denies odynophagia and Denies vomiting Musc Reports no additional complaints Neuro Reports no additional complaints Psych Reports no additional complaints Endo Reports no additional complaints Physical Exam Vital Signs: Last Vital Signs Pulse 75 02/25/24 11:49 BP 140/76 H 02/25/24 11:49 BMI result Body Mass Index 35.8 Const General: healthy appearing and no acute distress Nutritional Appearance: obese Orientation/consciousness: patient oriented x3 Resp Effort & Inspection: normal respiratory effort, able to speak in complete sentences, no tracheal deviation and symmetric chest movement Auscultation: clear to auscultation bilaterally Cardio Rate: regular rate GI Inspection: Yes normal to inspection, No distended and Yes obesity Palpation (GI): Soft to palpation, not firm, nontender and No hepatosplenomegaly present Auscultation: normal bowel sounds General: Yes no CVA tenderness Back/Spine/Pelvis Back: no CVA tenderness Skin General skin exam: elasticity normal, turgor normal and dry skin Neuro General: patient oriented x3 Psych Appearance: grossly normal Mental Status: mental status grossly normal Affect: normal affect Assessment & Plan Assessment & Plan (1) GERD (gastroesophageal reflux disease): Code(s): K21.9 - Gastro-esophageal reflux disease without esophagitis Qualifiers: Esophagitis presence: with esophagitis Esophagitis bleeding: without hemorrhage Qualified Code(s): K21.00 - Gastro-esophageal reflux disease with esophagitis, without bleeding (2) Postprandial epigastric pain: Code(s): R10.13 - Epigastric pain (3) Constipation: Code(s): K59.00 - Constipation, unspecified Qualifiers: Constipation type: slow transit constipation Qualified Code(s): K59.01 - Slow transit constipation (4) Screen for colon cancer: Code(s): Z12.11 - Encounter for screening for malignant neoplasm of colon Plan Patient will be sent for upper endoscopy and colonoscopy. What to expect before during and after procedure discussed with patient. I will see patient after the procedure, sooner on as needed basis. Patient is agreeable to this plan and verbalizes understanding of instructions. She was given the opportunity to ask questions and all questions answered. Thank for allowing me to participate in her care Medications: Refilled polyethylene glycol 3350 (Miralax) As directed by gastroenterology department at [facility] 238 grams PO ONCE 238 grams 0RF Z12.11 - Encounter for screening for malignant neoplasm of colon bisacodyl (Dulcolax (bisacodyl)) take 4 tabs at noon the day before your colonoscopy 20 mg (4 x 5 mg) PO ONCE 1 day 4 tabs 0RF Z12.11 - Encounter for screening for malignant neoplasm of colon Coding Level of Care Code Est Pt Level 3 (14405) Diagnoses Gastroesophageal reflux disease with esophagitis without hemorrhage K21.00 Esophagitis presence: with esophagitis Esophagitis bleeding: without hemorrhage Postprandial epigastric pain R10.13 Slow transit constipation K59.01 Constipation type: slow transit constipation Screen for colon cancer Z12.11 Time Spent (min) 30 Comment 20 minutes spent with patient and additional 10 minutes spent reviewing her records
== END 2024-02-25 12:32 | disposition home or self-care (01) ==
PROVIDERS: PCP Pediatrics; Visit Provider Nurse Practitioner Family
DX: K21.00 Gastro-esophageal reflux disease with esophagitis, without bleeding (principal); R10.13 Epigastric pain; K59.01 Slow transit constipation; Z12.11 Encounter for screening for malignant neoplasm of colon
CPT/HCPCS: 99213

== ENCOUNTER → 2024-02-25 11:46 | Outpatient (BNVA) | payer OTHER, SELFPAY | PROVIDERS: PCP Pediatrics; Visit Provider Nurse Practitioner Family | DX: Z12.11 Encounter for screening for malignant neoplasm of colon (principal); K21.00 Gastro-esophageal reflux disease with esophagitis, without bleeding; K59.01 Slow transit constipation; R10.13 Epigastric pain | CPT/HCPCS: 99212 ==

== ENCOUNTER 2024-06-16 06:23 | Day surgery (SDC) | payer OTHER, SELFPAY ==
--- NOTE | 2024-06-15 14:14 | P.CONAN_ITS ---
Documented by User: Kim Knox NP 06/15/24 14:15 HPI - Anesthesia Eval Consult details Narrative: 44yo F for Upper Endoscopy and Colonoscopy PMFSH Active Problems Active Problems: All Active Problems Uterine myoma (Acute) Unsatisfactory cervical Papanicolaou smear (Acute) Abnormal uterine bleeding (Acute) COVID-19 (Acute) Past Medical History Medical History Hypertension Hx of malignant neoplasm of gallbladder Tubal ligation evaluation Kidney stones Family History Family history of problems with anesthesia: No Surgical History Surgical History History of esophagogastroduodenoscopy (EGD) Previous back surgery History of lumbar fusion Tubal ligation status History of cholecystectomy H/O hand surgery History of ankle surgery H/O knee surgery S/P removal of thyroid nodule Hx of appendectomy History of Problems with Anesthesia: No Social History Social History Household Members: Family Alcohol intake: current Alcohol intake frequency: holidays/special occasions only Patient Tobacco Use Status: Never used Tobacco Use of substances other than those prescribed or required for medical reasons: No Are you DNR?: No Advance Directives: No Advance Directives Information Provided: Yes Meds Allergies Allergy/AdvReac Type Severity Reaction Status Date / Time acetaminophen [From PERCOCET] Allergy Unknown Nausea and Verified 06/16/24 06:36 Vomiting oxycodone [From PERCOCET] Allergy Unknown Nausea and Verified 06/16/24 06:36 Vomiting amoxicillin AdvReac Nausea and Verified 06/16/24 06:36 Vomiting Home Medications ?Medication ?Instructions ?Recorded ?Confirmed ?Last Taken ?Type hydrochlorothiazide 12.5 mg tablet 12.5 mg PO DAILY 02/01/23 06/16/24 Unknown History sulfamethoxazole 400 1 tab PO DIRECTED 02/01/23 06/16/24 Unknown History mg-trimethoprim 80 mg tablet Assessment and Plan Assessment Anesthesia Assessment: Chart Reviewed Final Anesthetic Review Family History of Problems with Anesthesia: No History of Problems with Anesthesia: No Documented by User: Hannah Colby MD 06/16/24 07:27 [facility] Past Medical History Medical History Hypertension Hx of malignant neoplasm of gallbladder Tubal ligation evaluation Kidney stones Surgical History Surgical History History of esophagogastroduodenoscopy (EGD) Previous back surgery History of lumbar fusion Tubal ligation status History of cholecystectomy H/O hand surgery History of ankle surgery H/O knee surgery S/P removal of thyroid nodule Hx of appendectomy Social History Social History Household Members: Family Alcohol intake: current Alcohol intake frequency: holidays/special occasions only Patient Tobacco Use Status: Never used Tobacco Use of substances other than those prescribed or required for medical reasons: No Are you DNR?: No Advance Directives: No Advance Directives Information Provided: Yes Meds Allergies Allergy/AdvReac Type Severity Reaction Status Date / Time acetaminophen [From PERCOCET] Allergy Unknown Nausea and Verified 06/16/24 06:36 Vomiting oxycodone [From PERCOCET] Allergy Unknown Nausea and Verified 06/16/24 06:36 Vomiting amoxicillin AdvReac Nausea and Verified 06/16/24 06:36 Vomiting Home Medications ?Medication ?Instructions ?Recorded ?Confirmed ?Last Taken ?Type hydrochlorothiazide 12.5 mg tablet 12.5 mg PO DAILY 02/01/23 06/16/24 Unknown History sulfamethoxazole 400 1 tab PO DIRECTED 02/01/23 06/16/24 Unknown History mg-trimethoprim 80 mg tablet Exam Airway Mallampati Class: II TM Dist: >3cm Neck ROM: Full Heart: rrr Lungs: cta Assessment and Plan Assessment Anesthesia Assessment: Anesthesia Plan Discussed Final Anesthetic Review NPO: Yes ASA Class: II Final Preanesthetic Review: No Changes in Pt Med Stat, Meds/Allgs Chart Reviewed, Consent Obtained/Reviewed and Anes Risks/Benef Reviewed Patient Risk: Low Procedure Risk: Low Anesthetic Plan Anesthetic Plan: MAC: Disposition: Standard PACU
[2024-06-16 06:36] VITALS: BMI 34.5
--- NOTE | 2024-06-16 06:37 | MHC.SHP ---
Pre-Procedural Eval Section A - 24 Hr Update-Section A only Date of Service: 06/16/24 Section B - Complete if H&P > 30 days Chief Complaint: Encounter for screening for malignant neoplasm of Details of Present Illness: fh of poylps Relevant Family History (Specify if Yes): Yes Relevant Social History: None Present Medications: see Short Stay Collaborative assessment Medical History: Significant History (Hypertension Hx of malignant neoplasm of gallbladder Tubal ligation evaluation Kidney stones) History of Previous Operations: Relevant previous surgery/procedure and date(s) (History of esophagogastroduodenoscopy (EGD) Previous back surgery History of lumbar fusion Tubal ligation status History of cholecystectomy H/O hand surgery History of ankle surgery H/O knee surgery S/P removal of thyroid nodule Hx of appendectomy) Allergies: Allergies Allergy/AdvReac Type Severity Reaction Status Date / Time acetaminophen [From PERCOCET] Allergy Unknown Nausea and Verified 06/16/24 06:36 Vomiting oxycodone [From PERCOCET] Allergy Unknown Nausea and Verified 06/16/24 06:36 Vomiting amoxicillin AdvReac Nausea and Verified 06/16/24 06:36 Vomiting Review of Systems Sugical H&P ROS: Negative: Constitution, Cardiovascular, Respiratory, Neurological, Psychiatric, Hem-Onc, Allergic/Immunologic, Gastrointestinal, Genitourinary, Musculoskeletal, Integumentary, Endocrine and Eyes/Ears/Nose/Throat Exam Surgical H&P Exam: Normal: HEENT, Normal: Heart, Normal: Lungs, Normal: Extremities, Normal: Abdomen, Normal: Skin and Normal: Neurological Plan Diagnosis/Plan: Unchanged I have reviewed the history and physical and performed a pertinent physical examination on my patient. No changes have occurred unless specified. EGD due to hx of gastritis Time Spent With Patient Time: Total time managing care of this patient today ____ minutes.
[2024-06-16 06:45] VITALS: BP 140/93; PULSE 79; RESP 15; TEMP 36.7; O2SAT 98
[2024-06-16] MEDS: Lactated Ringers 1,000 ML 100 ML IVCONT (06:52)
--- NOTE | 2024-06-16 08:09 | P.OPN-COLO_ITS ---
Colonoscopy Operative Note Operative Note Date of Service: 06/16/24 Narrative: Operative Information Procedure Description: EGD, Colonoscopy Indication: Gastritis, screening Anesthesia: MAC FLEXIBLE TRANSORAL UPPER GASTROINTESTINAL ENDOSCOPY AND COLONOSCOPY PROCEDURE NOTE UPPER ENDOSCOPY Consent: Indications for the procedure and potential complications of bleeding, perforation, reaction to medications and missed diagnosis were discussed with the patient and informed consent was obtained. Instrument: Olympus GIF H 190 J mid size upper endoscope Monitoring: Vital signs and clinical assessment, continuous EKG monitoring, Pulse oximetry, Carbon Dioxide monitoring and blood pressure monitoring were done throughout the procedure. Procedure: The patient was placed in the left lateral decubitis position and pre-procedure medications were administered and a bite block was placed. The endoscope was inserted into the mouth and advanced under direct vision to the third part of duodenum. A careful inspection was made as the upper endoscope was withdrawn including a retroflexed examination of the proximal stomach; Findings and interventions are described below. Findings: Larynx:normal Esophagus: GE junction at 38 cm, diaphragm hiatus at 40 cm, consistent with 2 cm sliding hiatal hernia, bogginess and erythema at GEJ with few streaks of erosive esophagitis noted -bx taken from GEJ, distal and proximal esophagus Stomach: Patchy erythema. Biopsies were obtained. Grade 2 flap valve on retroflexed examination of the cardia. Duodenum: Patchy bulbar duodenitis Intervention: Biopsies as noted above, COLONOSCOPY Instrument: Olympus variable stiffness pediatric scope 190L Colonoscopy Monitoring: Vital signs and clinical assessment, continuous EKG monitoring, Pulse oximetry, Carbon Dioxide monitoring and blood pressure monitoring were done throughout the procedure. Colon withdrawal time was 6 minutes. Procedure: The patient was placed in the left lateral decubitis position and pre-procedure medications were administered. After a digital rectal examination of the ano-rectum, the video colonoscope was inserted into the rectum and advanced through the colon to the cecum/TI. The colonoscope was slowly withdrawn in a retrograde panoramic fashion and the colon mucosa was carefully examined including a retroflexed view of the rectum. Findings and interventions are described below. Procedure Difficulty:moderate Findings: Terminal Ileum-normal Cecum:normal Ascending Colon: normal Transverse Colon -normal Descending Colon:normal Sigmoid Colon: normal Rectum: Retroflexion with small internal hemorrhoids, grade I Anorectum - normal Colon preparation: [place] Bowel Preparation Scale Right colon; 2 Transverse colon: 3 Left colon; 2 (0 = Unprepared colon segment with mucosa not seen due to solid stool that cannot be cleared. 1 = Portion of mucosa of the colon segment seen, but other areas of the colon segment not well seen due to staining, residual stool and/or opaque liquid. 2 = Minor amount of residual staining, small fragments of stool and/or opaque liquid, but mucosa of colon segment seen well. 3 = Entire mucosa of colon segment seen well with no residual staining, small fragments of stool or opaque liquid) Impression and Post Procedure Diagnosis: Endoscopy Findings: erosive esophagitis hiatal hernia gastritis duodenitis Colonoscopy Findings: internal hemorrhoids Plan: Await Pathology results Repeat Colonoscopy in 10 years or earlier if clinically indicated High fiber diet leaflet avoid straining at stool, epsom salts and sitz bath, anusol supps or cream GERD precautions, consider changing to PPI Above findings were reviewed with the patient and relevant handouts were provided if indicated.
[2024-06-16 08:15] VITALS: BP 116/67; PULSE 87; RESP 16; TEMP 36.4; O2SAT 96
[2024-06-16 08:30] VITALS: BP 123/77; PULSE 79; RESP 18; O2SAT 97
[2024-06-16 08:39] VITALS: BP 133/93; PULSE 78; RESP 17; TEMP 36.3; O2SAT 97
== END 2024-06-16 09:06 | disposition home or self-care (01) ==
PROVIDERS: PCP Pediatrics; Visit Provider Internal Medicine Gastroenterology
PROC: (CPT 43239; principal; 2024-06-16 07:30)
DX: K22.10 Ulcer of esophagus without bleeding (principal); K44.9 Diaphragmatic hernia without obstruction or gangrene; K29.60 Other gastritis without bleeding; K29.80 Duodenitis without bleeding; K22.89 Other specified disease of esophagus; K21.9 Gastro-esophageal reflux disease without esophagitis; Z12.11 Encounter for screening for malignant neoplasm of colon; K64.0 First degree hemorrhoids; Z85.09 Personal history of malignant neoplasm of other digestive organs; I10 Essential (primary) hypertension
CPT/HCPCS: 43239; 45378; 88305; 88313; 88342; J1596; J2704

== ENCOUNTER → 2024-06-16 06:23 | Outpatient (BNV) | payer OTHER, SELFPAY | PROVIDERS: PCP Pediatrics; Visit Provider Internal Medicine Gastroenterology | DX: Z12.11 Encounter for screening for malignant neoplasm of colon (principal); K64.0 First degree hemorrhoids; K29.70 Gastritis, unspecified, without bleeding; K20.90 Esophagitis, unspecified without bleeding; K29.80 Duodenitis without bleeding | CPT/HCPCS: 43239; 45380 ==

== ENCOUNTER 2024-07-03 11:51 | Outpatient (AMB) | payer OTHER, SELFPAY ==
--- NOTE | 2024-07-03 11:58 | MHC.OFFVIS ---
Vital Signs 07/03/24 12:01 Height 5 ft 3 in Weight 203 lb BMI 36.0 BP 152/87 H Blood Pressure Location Lt brachial Position Sitting Pulse 70 Intake Visit Reasons: s/p egd/colon Intake Note: Patient follow up for EGD/Colonoscopy results. Patient cc: acid reflex on and off and bloody test on her mouth. 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 What to expect before during and after procedure discussed with patient. I will see patient after the procedure, sooner on as needed basis. Patient is agreeable to this plan and verbalizes understanding of instructions. She was given the opportunity to ask questions and all questions answered. ? Thank for allowing me to participate in her care Medications Refilled polyethylene glycol 3350 (Miralax) As directed by gastroenterology department at [facility] 238 grams PO ONCE 238 grams 0RF Z12.11 bisacodyl (Dulcolax (bisacodyl)) take 4 tabs at noon the day before your colonoscopy 20 mg (4 x 5 mg) PO ONCE 1 day 4 tabs 0RF Z12.11 UPPER ENDOSCOPY AND COLONOSCOPY Findings: Larynx:normal Esophagus: GE junction at 38 cm, diaphragm hiatus at 40 cm, consistent with 2 cm sliding hiatal hernia, bogginess and erythema at GEJ with few streaks of erosive esophagitis noted -bx taken from GEJ, distal and proximal esophagus Stomach: Patchy erythema. Biopsies were obtained. Grade 2 flap valve on retroflexed examination of the cardia. Duodenum: Patchy bulbar duodenitis Intervention: Biopsies as noted above, COLONOSCOPY Instrument: Olympus variable stiffness pediatric scope 190L Colonoscopy Monitoring: Vital signs and clinical assessment, continuous EKG monitoring, Pulse oximetry, Carbon Dioxide monitoring and blood pressure monitoring were done throughout the procedure. Colon withdrawal time was 6 minutes. Procedure: The patient was placed in the left lateral decubitis position and pre-procedure medications were administered. After a digital rectal examination of the ano-rectum, the video colonoscope was inserted into the rectum and advanced through the colon to the cecum/TI. The colonoscope was slowly withdrawn in a retrograde panoramic fashion and the colon mucosa was carefully examined including a retroflexed view of the rectum. Findings and interventions are described below. Procedure Difficulty:moderate Findings: Terminal Ileum-normal Cecum:normal Ascending Colon: normal Transverse Colon -normal Descending Colon:normal Sigmoid Colon: normal Rectum: Retroflexion with small internal hemorrhoids, grade I Anorectum - normal Colon preparation: [place] Bowel Preparation Scale Right colon; 2 Transverse colon: 3 Left colon; 2 (0 = Unprepared colon segment with mucosa not seen due to solid stool that cannot be cleared. 1 = Portion of mucosa of the colon segment seen, but other areas of the colon segment not well seen due to staining, residual stool and/or opaque liquid. 2 = Minor amount of residual staining, small fragments of stool and/or opaque liquid, but mucosa of colon segment seen well. 3 = Entire mucosa of colon segment seen well with no residual staining, small fragments of stool or opaque liquid) Impression and Post Procedure Diagnosis: Endoscopy Findings: erosive esophagitis hiatal hernia gastritis duodenitis Colonoscopy Findings: internal hemorrhoids Plan: Await Pathology results Repeat Colonoscopy in 10 years or earlier if clinically indicated High fiber diet leaflet avoid straining at stool, epsom salts and sitz bath, anusol supps or cream GERD precautions, consider changing to PPI PATHOLOGY RESULTS Diagnosis A. Stomach, biopsy: Oxyntic mucosa within normal limits; no Helicobacter organisms seen. B. EG junction, biopsy: - Cardiac-type mucosa with moderate chronic inactive inflammation; no intestinal metaplasia seen. - Squamous mucosa within normal limits. C. Esophagus, distal, biopsy: Active esophagitis (maximum eosinophil count 1 per high powered field). D. Esophagus, proximal, biopsy: Squamous epithelium within normal limits; no inflammation seen TODAY'S VISIT Patient is here today for follow-up and to discuss upper endoscopy and colonoscopy results. Patient is accompanied by her . Patient denies any ill effects from the prep, anesthesia or procedure itself. Patient was diagnosed with erosive esophagitis, gastritis. No polyps found. Endoscopy and colonoscopy results as well as biopsy discussed with patient. Patient continues to have epigastric pain and bloating in particularly. Patient states that she is trying to eat healthy gross her own vegetables cooks her own meals, hardly eats any meat and continues to gain weight. Patient feels little bit frustrated. Patient feels that the worse part is her feeling bloated. Patient reports that she uses lots of herbs when she cooks. Last meal usually at 16:00. Patient denies snacking at night time. Currently not taking any PPI. Reports that she is not moving her bowels every day. When she does have a bowel movement does not feel like she empties completely. Patient denies any nausea or vomiting. [facility] Medical History Hypertension Hx of malignant neoplasm of gallbladder Tubal ligation evaluation Kidney stones Surgical History History of esophagogastroduodenoscopy (EGD) Previous back surgery History of lumbar fusion Tubal ligation status History of cholecystectomy H/O hand surgery History of ankle surgery H/O knee surgery S/P removal of thyroid nodule Hx of appendectomy Social History Household Members: Family Alcohol intake: current Alcohol intake frequency: holidays/special occasions only Patient Tobacco Use Status: Never used Tobacco Review of Systems Const Denies weight gain and Denies weight loss ENT Reports no additional complaints, Denies dysphagia and Denies odynophagia Card Reports no additional complaints Resp Reports no additional complaints GI Denies abdominal pain, Denies belching, Denies melena, Denies change in bowel habits, Reports constipation, Denies dysphagia, Denies excessive flatus, Denies dyspepsia, Denies diarrhea, Denies loose stools, Denies nausea, Denies odynophagia and Denies vomiting Reports no additional complaints Musc Reports no additional complaints Neuro Reports no additional complaints Psych Reports no additional complaints Endo Reports no additional complaints Physical Exam Vital Signs: Last Vital Signs Pulse 70 07/03/24 12:01 BP 152/87 H 08/02/24 12:01 BMI result Body Mass Index 36.0 Const General: healthy appearing and no acute distress Nutritional Appearance: obese Orientation/consciousness: patient oriented x3 Resp Effort & Inspection: normal respiratory effort, able to speak in complete sentences, no tracheal deviation and symmetric chest movement Auscultation: clear to auscultation bilaterally Cardio Rate: regular rate GI Inspection: Yes normal to inspection, No distended and Yes obesity Palpation (GI): Soft to palpation, not firm, nontender and No hepatosplenomegaly present Auscultation: normal bowel sounds General: Yes no CVA tenderness Back/Spine/Pelvis Back: no CVA tenderness Skin General skin exam: elasticity normal, turgor normal and dry skin Neuro General: patient oriented x3 Psych Appearance: grossly normal Mental Status: mental status grossly normal Affect: normal affect Assessment & Plan Assessment & Plan (1) Erosive esophagitis: Code(s): K22.10 - Ulcer of esophagus without bleeding (2) Gastritis: Code(s): K29.70 - Gastritis, unspecified, without bleeding Qualifiers: Gastritis type: other gastritis Chronicity: chronic Gastritis bleeding: without bleeding Qualified Code(s): K29.50 - Unspecified chronic gastritis without bleeding (3) GERD (gastroesophageal reflux disease): Code(s): K21.9 - Gastro-esophageal reflux disease without esophagitis Qualifiers: Esophagitis presence: with esophagitis Esophagitis bleeding: without hemorrhage Qualified Code(s): K21.00 - Gastro-esophageal reflux disease with esophagitis, without bleeding (4) Chronic idiopathic constipation: Code(s): K59.04 - Chronic idiopathic constipation (5) Postprandial abdominal bloating: Code(s): R14.0 - Abdominal distension (gaseous) (6) Postprandial epigastric pain: Code(s): R10.13 - Epigastric pain Plan Will send patient for upper GI and small-bowel to rule out herni, re-evaluate for reflux. Patient will start taking Nexium in the morning. Avoid dietary triggers and late night snacking. Patient was instructed to follow FODMAP diet. Discussed with patient that food that is healthy sometimes due to her mentation process can irritate the bowel and cause abdominal pain and bloating. Patient will start taking senna to help her move her bowels better. Increase fluid intake and activity to promote better bowel motility. Patient was also encouraged to eat smaller meals and more often. Patient will follow-up in the office in 3-4 months, sooner on as needed basis. She is agreeable to this plan and verbalizes understanding of instructions. She was given the opportunity to ask questions and all questions answered. Thank you for allowing me to participate in her care Orders: Orders FL upper GI small bowel Today K21.9 - Gastro-esophageal reflux disease without esophagitis, R10.13 - Epigastric pain Medications: New sennosides (Natural Senna Laxative) 17.2 mg (2 x 8.6 mg) PO BEDTIME 60 tabs 3RF constipation K59.00 - Constipation, unspecified esomeprazole magnesium (Nexium) 40 mg PO DAILY 30 caps 5RF K21.9 - Gastro-esophageal reflux disease without esophagitis Coding Level of Care Code Est Pt Level 4 (37676) Diagnoses Erosive esophagitis K22.10 Other chronic gastritis without hemorrhage K29.50 Gastritis type: other gastritis Chronicity: chronic Gastritis bleeding: without bleeding Gastroesophageal reflux disease with esophagitis without hemorrhage K21.00 Esophagitis presence: with esophagitis Esophagitis bleeding: without hemorrhage Chronic idiopathic constipation K59.04 Postprandial abdominal bloating R14.0 Postprandial epigastric pain R10.13 Time Spent (min) 35 Comment 20 minutes spent with patient and additional 15 minutes spent reviewing her records
[2024-07-03 12:01] VITALS: BP 152/87; PULSE 70; BMI 36.0
== END 2024-07-03 13:32 | disposition home or self-care (01) ==
PROVIDERS: PCP Pediatrics; Visit Provider Nurse Practitioner Family
DX: K22.10 Ulcer of esophagus without bleeding (principal); K29.50 Unspecified chronic gastritis without bleeding; K21.00 Gastro-esophageal reflux disease with esophagitis, without bleeding; K59.04 Chronic idiopathic constipation; R14.0 Abdominal distension (gaseous); R10.13 Epigastric pain
CPT/HCPCS: 99214

== ENCOUNTER → 2024-07-03 11:51 | Outpatient (BNVA) | payer OTHER, SELFPAY | PROVIDERS: PCP Pediatrics; Visit Provider Nurse Practitioner Family | DX: K22.10 Ulcer of esophagus without bleeding (principal); K29.50 Unspecified chronic gastritis without bleeding; K21.00 Gastro-esophageal reflux disease with esophagitis, without bleeding; K59.04 Chronic idiopathic constipation; R14.0 Abdominal distension (gaseous); R10.13 Epigastric pain | CPT/HCPCS: 99212 ==

== ENCOUNTER 2024-07-17 16:08 | Outpatient (REF) | payer OTHER, SELFPAY ==
--- NOTE | ~2024-07-17 | MM_ITS ---
EXAMINATION: MM SCREENING DIGITAL BREAST TOMOSYNTHESIS, BILATERAL CLINICAL INFORMATION: Screening. Asymptomatic. COMPARISON: Mammography: This study is compared with prior exams dating back to 2012. TECHNIQUE: Digital breast tomosynthesis is performed in both the craniocaudal and mediolateral oblique views along with computer-aided detection (CAD). Synthesized 2D images are generated from the tomosynthesis. FINDINGS: There are scattered areas of fibroglandular density (ACR BI-RADS breast composition Category b). There are no significant masses, abnormal calcifications, or other abnormalities. MM/MM tomosynthesis screening BI IMPRESSION: No mammographic evidence of malignancy. ASSESSMENT: BI-RADS BI-RADS 1 - Negative RECOMMENDATION: Routine annual mammography screening. 1 year F/U This examination should not preclude the clinical evaluation of a suspicious palpable abnormality. This patient's information was entered into a reminder system with a target due date for their next mammogram. Electronically signed by: Shereen Walsh MD 08/15/2024 04:07 PM EDT
== END 2024-07-17 16:09 | disposition home or self-care (01) ==
LOC: HO.MAMMO 16:08
PROVIDERS: PCP Pediatrics; Visit Provider Pediatrics
DX: Z12.31 Encounter for screening mammogram for malignant neoplasm of breast (principal)
CPT/HCPCS: 77063; 77067

== ENCOUNTER → 2024-07-17 16:15 | Outpatient (BNV) | payer OTHER, SELFPAY | PROVIDERS: PCP Pediatrics; Visit Provider Radiology Diagnostic Radiology | DX: Z12.31 Encounter for screening mammogram for malignant neoplasm of breast (principal) | CPT/HCPCS: 77063; 77067 ==

== ENCOUNTER 2024-09-15 08:32 | Outpatient (REF) | payer OTHER, SELFPAY ==
--- NOTE | ~2024-09-15 | FL_ITS ---
EXAMINATION: XR FLUOROSCOPY UPPER GI WITH AIR CLINICAL INFORMATION: Epigastric pain. Abdominal bloating. COMPARISON: None TECHNIQUE: Fluoroscopic air contrast upper GI examination was performed utilizing standard techniques with thin and thick barium and effervescent granules. Numerous spot images were obtained. FINDINGS: UPPER GI: There are surgical clips in the region of the thyroid from thyroidectomy. Lateral cine images of the oropharynx and hypopharynx demonstrate normal swallow mechanism with normal epiglottic inversion and soft palate elevation. No tracheal penetration, glottic or subglottic aspiration identified. No nasopharyngeal reflux present. Hypopharyngeal structures appear normal without evidence of mass or diverticulum. There was no significant cricopharyngeal achalasia. Dual and single contrast images of the esophagus demonstrate normal caliber, contour, and mucosal pattern. No evidence of stricture, mass, or ulcerations identified. Esophageal peristalsis is mildly disorganized. All small type I hiatal hernia is present. No significant gastroesophageal reflux was seen during the course of the examination and on reflux views. Dual contrast and single contrast images of the stomach demonstrated a normal contour. There are a few tiny foci of contrast pooling in the fundus of the stomach that may represent small mucosal erosions. No masses are seen. Contrast freely passed into the gastric antrum and duodenal bulb without delay. Single and air-contrast images of the duodenal bulb demonstrate no abnormality. The duodenal sweep has a normal appearance, course, and mucosal fold appearance. 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 There are surgical clips in the right upper quadrant, as well as chain sutures noted near the region of the cecum. No abnormal soft tissue calcification. Lung bases are clear. Osseous structures demonstrate a mild levoconvex lumbar scoliosis with prior L4-S1 posterior instrumented fusion and discectomy with disc prosthesis. No gross complication evident. There are mild degenerative changes in both hip joints. Sequential imaging of the jejunum and ileum have normal caliber, fold pattern, and appearance without evidence of mass, stricture, or abnormal dilatation. The terminal ileum is not well-visualized. No dilution of contrast noted through progression. Contrast was seen in the right colon after 90 minutes FLUOROSCOPY TIME: 40 seconds DOSE AREA PRODUCT: 890 uGy-m2 (microgray-meter squared) FL/FL upper GI w air w SBFT IMPRESSION: 1. Small type I hiatal hernia. 2. Mildly disordered esophageal peristalsis. 3. There are a few tiny foci of contrast pooling in the fundus of the stomach that may represent small mucosal erosions. Recommend correlation with EGD. 4. Normal small bowel series. This procedure was performed by Sunny Damian PA-C, and supervised by Dr. Santos Electronically signed by: Norberto Santos MD 09/17/2024 04:43 PM EDT
== END 2024-09-15 08:33 | disposition home or self-care (01) ==
LOC: HO.XRAY 08:32
PROVIDERS: PCP Pediatrics; Visit Provider Nurse Practitioner Family
DX: R10.13 Epigastric pain (principal); K21.9 Gastro-esophageal reflux disease without esophagitis
CPT/HCPCS: 74246; 74248

== ENCOUNTER → 2024-09-15 08:36 | Outpatient (BNV) | payer OTHER, SELFPAY | PROVIDERS: PCP Pediatrics; Visit Provider Radiology Diagnostic Radiology | DX: R10.13 Epigastric pain (principal) | CPT/HCPCS: 74246 ==

== ENCOUNTER 2024-12-21 13:33 | Outpatient (AMB) | payer OTHER, SELFPAY ==
--- NOTE | 2024-12-21 13:40 | A.OFFVIS_ITS ---
Vital Signs 12/21/24 13:41 Height 5 ft 3 in Weight 205 lb 0.478 oz BMI 36.3 BP 136/90 H Blood Pressure Location Rt brachial Position Sitting Pulse 76 Pulse Source Pulse Oximeter Pulse Oximetry (%) 97 Oxygen Delivery Method Room Air Intake Visit Reasons: follow up r/s from 10/05 Intake Note: ESTABLISHED PATIENT Reason; ~ 4 mos FU. BA FL done. Changes/concerns? No significant concerns (GI) per pt. PT managing reflux with diet and lifestyle currently, omeprazole only PRN. Allergies acetaminophen [From PERCOCET] Allergy (Unknown, Verified 12/21/24 13:41) Nausea and Vomiting oxycodone [From PERCOCET] Allergy (Unknown, Verified 12/21/24 13:41) Nausea and Vomiting amoxicillin Adverse Reaction (Verified 12/21/24 13:41) Nausea and Vomiting HPI HPI follow up r/s from 10/05: Details: LAST VISIT: Erosive esophagitis Gastritis GERD (gastroesophageal reflux disease) Chronic idiopathic constipation Postprandial abdominal bloating Postprandial epigastric pain Plan Will send patient for upper GI and small-bowel to rule out herni, re-evaluate for reflux. Patient will start taking Nexium in the morning. Avoid dietary triggers and late night snacking. Patient was instructed to follow FODMAP diet. Discussed with patient that food that is healthy sometimes due to her mentation process can irritate the bowel and cause abdominal pain and bloating. Patient will start taking senna to help her move her bowels better. Increase fluid intake and activity to promote better bowel motility. Patient was also encouraged to eat smaller meals and more often. Patient will follow-up in the office in 3-4 months, sooner on as needed basis. She is agreeable to this plan and verbalizes understanding of instructions. She was given the opportunity to ask questions and all questions answered. ? Thank you for allowing me to participate in her care Orders Orders FL upper GI small bowel Today K21.9, R10.13 Medications New sennosides (Natural Senna Laxative) 17.2 mg (2 x 8.6 mg) PO BEDTIME 60 tabs 3RF constipation K59.00 esomeprazole magnesium (Nexium) 40 mg PO DAILY 30 caps 5RF K21.9 TODAY'S VISIT Patient is here today for follow-up and to discuss upper GI small-bowel series. Results discussed with patient. Patient reports that for the most part her symptoms of acid reflux are suppressed with diet. Patient is not eating any carbs, mostly vegetables. Patient is aggravated because she can not lose weight. Patient reports that she started gaining weight after her partial parathyroidectomy. Patient was placed on phentermine as this is the only medication that the insurance was able to cover. Patient tried diet and exercise eating less than 1000 calories per day, however she continues to gain weight. Patient denies any abdominal pain or discomfort. States that she took phentermine for 1 week and lost 10 lb. However patient also reports that she is taking diuretic. Last time she saw endocrinology was over 2 years ago. [facility], [facility] Medical History Hypertension Hx of malignant neoplasm of gallbladder Tubal ligation evaluation Kidney stones Surgical History (Updated 12/21/24 @ 14:20 by Nazanin Lakhani [facility]) History of parathyroidectomy History of esophagogastroduodenoscopy (EGD) Previous back surgery History of lumbar fusion Tubal ligation status History of cholecystectomy H/O hand surgery History of ankle surgery H/O knee surgery S/P removal of thyroid nodule Hx of appendectomy Social History Household Members: Family Alcohol intake: current Alcohol intake frequency: holidays/special occasions only Patient Tobacco Use Status: Never used Tobacco Review of Systems Const Denies weight gain and Denies weight loss ENT Reports no additional complaints, Denies dysphagia and Denies odynophagia Card Reports no additional complaints Resp Reports no additional complaints GI Denies abdominal pain, Denies belching, Denies melena, Denies bloating, Denies change in bowel habits, Denies dysphagia, Denies excessive flatus, Denies dyspepsia, Reports heartburn, Denies diarrhea, Denies loose stools, Denies nausea, Denies odynophagia and Denies vomiting Reports no additional complaints Musc Reports no additional complaints Neuro Reports no additional complaints Psych Reports no additional complaints Endo Reports no additional complaints Physical Exam Vital Signs: Last Vital Signs Pulse 76 12/21/24 13:41 BP 136/90 H 12/21/24 13:41 Pulse Ox 97 12/21/24 13:41 Oxygen Delivery Method Room Air 12/21/24 13:41 BMI result Body Mass Index 36.3 Const General: healthy appearing and no acute distress Nutritional Appearance: obese Orientation/consciousness: patient oriented x3 Resp Effort & Inspection: normal respiratory effort, able to speak in complete sentences, no tracheal deviation and symmetric chest movement Auscultation: clear to auscultation bilaterally Cardio Rate: regular rate GI Inspection: Yes normal to inspection, No distended and Yes obesity Palpation (GI): Soft to palpation, not firm, nontender and No hepatosplenomegaly present Auscultation: normal bowel sounds General: Yes no CVA tenderness Back/Spine/Pelvis Back: no CVA tenderness Skin General skin exam: elasticity normal, turgor normal and dry skin Neuro General: patient oriented x3 Psych Appearance: grossly normal Mental Status: mental status grossly normal Affect: normal affect Results Reviewed Results Reviewed: UPPER GI SMALL BOWEL: IMPRESSION: 1. Small type I hiatal hernia. 2. Mildly disordered esophageal peristalsis. 3. There are a few tiny foci of contrast pooling in the fundus of the stomach that may represent small mucosal erosions. Recommend correlation with EGD. 4. Normal small bowel series. Assessment & Plan Assessment & Plan (1) History of parathyroidectomy: Code(s): Z98.890 - Other specified postprocedural states; Z90.89 - Acquired absence of other organs Category: Surgical (2) Erosive esophagitis: Code(s): K22.10 - Ulcer of esophagus without bleeding (3) Gastritis: Code(s): K29.70 - Gastritis, unspecified, without bleeding Qualifiers: Gastritis type: unspecified gastritis Chronicity: chronic Gastritis bleeding: without bleeding Qualified Code(s): K29.50 - Unspecified chronic gastritis without bleeding (4) GERD (gastroesophageal reflux disease): Code(s): K21.9 - Gastro-esophageal reflux disease without esophagitis Qualifiers: Esophagitis presence: esophagitis presence not specified Qualified Code(s): K21.9 - Gastro-esophageal reflux disease without esophagitis (5) Chronic idiopathic constipation: Code(s): K59.04 - Chronic idiopathic constipation (6) Postprandial abdominal bloating: Code(s): R14.0 - Abdominal distension (gaseous) (7) Postprandial epigastric pain: Code(s): R10.13 - Epigastric pain Plan Patient can continue omeprazole. Avoid dietary triggers and late night snacking. Staying upright for minimum 3 hours after meals discussed with patient. Referral to endocrinology. Message sent to Dr. Chew. Patient will follow-up in the office in 6 months, sooner on as needed basis. She is agreeable to this plan and verbalizes understanding of instructions. She was given the opportunity to ask questions and all questions answered. Thank you for allowing me to participate in her care Orders: Referrals Endocrinology Referral Z90.89 - Acquired absence of other organs, Z98.890 - Other specified postprocedural states Medications: New omeprazole 20 mg PO DAILY 30 caps 3RF Coding Level of Care Code Est Pt Level 3 (70166) Diagnoses History of parathyroidectomy Z98.890; Z90.89 Erosive esophagitis K22.10 Chronic gastritis without bleeding, unspecified gastritis type K29.50 Gastritis type: unspecified gastritis Chronicity: chronic Gastritis bleeding: without bleeding Gastroesophageal reflux disease, unspecified whether esophagitis present K21.9 Esophagitis presence: esophagitis presence not specified Chronic idiopathic constipation K59.04 Postprandial abdominal bloating R14.0 Postprandial epigastric pain R10.13 Time Spent (min) 30 Comment 20 minutes spent with patient and additional 10 minutes spent reviewing
[2024-12-21 13:41] VITALS: BP 136/90; PULSE 76; O2SAT 97; BMI 36.3
== END 2024-12-21 14:25 | disposition home or self-care (01) ==
PROVIDERS: PCP Pediatrics; Visit Provider Nurse Practitioner Family
DX: Z98.890 Other specified postprocedural states (principal); Z90.89 Acquired absence of other organs; K22.10 Ulcer of esophagus without bleeding; K29.50 Unspecified chronic gastritis without bleeding; K21.9 Gastro-esophageal reflux disease without esophagitis; K59.04 Chronic idiopathic constipation; R14.0 Abdominal distension (gaseous); R10.13 Epigastric pain
CPT/HCPCS: 99213

== ENCOUNTER → 2024-12-21 13:33 | Outpatient (BNVA) | payer OTHER, SELFPAY | PROVIDERS: PCP Pediatrics; Visit Provider Nurse Practitioner Family | DX: K21.9 Gastro-esophageal reflux disease without esophagitis (principal); K59.04 Chronic idiopathic constipation; K22.10 Ulcer of esophagus without bleeding; K29.50 Unspecified chronic gastritis without bleeding; R14.0 Abdominal distension (gaseous); R10.13 Epigastric pain; Z98.890 Other specified postprocedural states; Z90.89 Acquired absence of other organs | CPT/HCPCS: 99212 ==

== ENCOUNTER 2025-02-01 07:47 | Outpatient (AMB) | payer OTHER, SELFPAY ==
--- OUTSIDE RECORDS SUMMARY | 2025-02-01 07:50 | XMS_ITS | Continuity of Care Document ---
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 Plan of Treatment Reminders Order Date Submit Date Provider Last Modified By Organization Details Last Modified Time Details Appointments FOLLOW UP 2024 01:30P M Wally Epps MD Not available Not available Not available Lab CMP, serum or plasma 2024 025 [facility], Formerly [facility] [address], [place], [address], 01/22/2025 12:07:08 cortisol, am, serum 2024 025 [facility], [facility] [address], [place], [address], 01/29/2025 12:51:50 Referral None recorded. Procedures None recorded. Surgeries None recorded. Imaging None recorded. Medication Orders hydrochlo rothiazid e 25 mg tablet 2024 025 [facility], [address] [place] [address], [id number], 01/22/2025 11:20:36 phentermi ne 30 mg capsule 2024 025 [facility], [address] [place] [address], [id number], 01/22/2025 11:20:38 Patient TargetsNo targets recorded. Patient Instructions Encounter Date Encounter Id Patient Instructions Last Modified By Organization Details Last Modified Time 01/22/2025 [id number] When You Want to Lose Weight: Care Instructions nbarrows Not available 01/29/2025 12:51:50 Reason for Referral None Reported. Problems Name Problem SNOMED Code Status Onset Date Resolution Date Notes Provider Name and Address Organization Details Recorded Time Chronic back pain 905972367 Active Wally Epps MD [address] [address], [place], [address], [facility] 6 21:57:10 Body mass index 25-29 - overweig ht 952882471 Completed 12/23/2017 Wally Epps MD [address] [address], [place], [address], [facility] 8 14:29:58 Hyperten sive disorder 19005030 Active Wally Epps MD [address] [address], [address], [facility] 6 21:57:10 Mixed anxiety and depressi ve disorder 561976986 Active Wally Epps MD [address] [address], [place], [address], [facility] 6 21:57:10 Constipa tion 09969983 Completed 12/23/2017 Wally Epps MD [address] [address], [place], [address], [facility] 4 16:21:50 Dizzines s 481539989 Completed 01/11/2017 Tatyana marques [place] [facility], [facility] 7 16:26:14 Bone pain 35453133 Completed 12/30/2018 Wally Epps MD [address], [place], [address], [facility] 9 14:28:06 Paresthe sherif of hand 342001645 Completed 12/23/2017 Wally Epps MD [address], [place], [address], [facility] 8 14:30:20 Goiter 3729128 Completed 12/23/2017 Wally Epps MD [address], [place], [address], [facility] 8 14:30:23 Allergic rhinitis 29073340 Active Wally Epps MD [address], [place], [address], [facility] 6 21:57:10 Thyroid nodule 415118114 Completed 12/23/2017 Wally Epps MD [address], [place], [address], [facility] 8 14:30:13 Acquired trigger finger 8177465 Completed 12/23/2017 Wally Epps MD [address], [place], [address], [facility] 8 14:29:44 Thyroid follicul ar adenoma 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 Active 2015 Wally Epps MD [address], [place], [address], [facility] 6 14:10:57 Displace ment of lumbar interver tebral disc without myelopat hy 74391314 Active 2016 Wally Epps MD [address], [place], [address], [facility] 7 19:29:47 Lumbar radiculo saroj 510415232 Active 2016 Wally Epps MD [address], [place], [address], [facility] 7 19:30:42 Recurren t urinary tract infectio n 791357106 Active 2017 Wally Epps MD [address], [place], [address], [facility] 8 19:50:03 Sinusiti s 05199124 Completed 201712/30/2018 Wally Epps MD [address], [place], [address], [facility] 9 14:22:40 Exophtha lmos 48736233 Active 2017 Wally Epps MD [address], [place], [address], [facility] 8 10:51:07 Moderate major depressi on, single episode 13959737 Active 2017 Wally Epps MD [address], [place], [address], [facility] 8 13:59:37 Generali zed anxiety disorder 24928672 Active 2017 Wally Epps MD [address], [place], [address], [facility] 8 13:59:39 Obesity 263672899 Active 2018 Wally Epps MD [address], [place], [address], [facility] 9 14:39:22 Body mass index 30+ - obesity 553812968 Completed 201805/30/2020 [facility] 5 12:50:03 Kidney stone 61976639 Completed 201808/30/2019 Wally Epps MD [address] [facility] [address], [place], [address], [facility] 9 08:55:46 Umbilica l hernia 122794548 Active 2018 fat containi ng Wally Epps MD [address] [facility] [address], [place], [address], [facility] 9 06:05:56 History of calculus of kidney 149040867 Active 2018 right Wally Epps MD [address] [facility] [address], [place], [address], [facility] 9 21:19:40 Jeannine liz 303094605 Completed 202010/22/2024 Wally Epps MD [address] [facility] [place], [address], [facility] 4 16:17:53 History of SARS-CoV -2 15668080060 8767605 Active 2021 Wally Epps MD [address] [facility] [address], [place], [address], [facility] 2 15:20:23 Exercise -induced asthma 26524566 Active 2021 Had previous ly had RAJI inhaler for use with exercise . Notes that she improved with weight loss around 2014 and had not used inhaler again until prescrib ed her for cough post COVID 2021. Jorge Alberto Delcid MD [address] [facility] [place], [address], [facility] 2 16:10:41 Gastroes ophageal reflux disease 559555723 Active 2021 Paulaagusto Delcid ronnie, [facility] 2 11:46:07 Thromboc ytopenic disorder 651333078 Completed 202103/14/2023 Wally Epps MD [address], [place], [address], [facility] 3 14:39:40 History of subtotal thyroide ctomy 187718725 Active 2022 Wally Epps MD [address], [place], [address], [facility] 3 14:40:00 Vitamin D deficien cy 97534194 Active 2022 Wally Epps MD [address], [place], [address], [facility] 3 14:41:21 Abnormal uterine bleeding 74881301815 100 Active 2022 Walyl Epps MD [address], [place], [address], [facility] 3 12:26:52 Endometr ial polyp Active 2022 Wally Epps MD [address], [place], [address], [facility] 3 12:55:05 Hysteros copy with removal of submucou s leiomyom bk Active 2022 Wally Epps MD [address], [place], [address], [facility] 3 07:52:58 Uterine leiomyom a 74006223 Active 2022 Wally Epps MD [address], [place], [address], [facility] 3 07:53:23 Constipa tion 67107122 Active Wally Epps MD [address], [place], [address], [facility] 4 16:21:50 Blood in urine 17799402 Active 2023 Wally Epps MD [address], [place], [address], [facility] 4 06:57:45 Internal hemorrho ids 09792722 Active 2023 Wally Epps MD [address], [place], [address], [facility] 4 12:52:04 Erosive esophagi tis 32571347 Active 2023 Wally Epps MD [address], [place], [address], [facility] 4 12:52:18 Hiatal hernia 70527230 Active 2023 type 1 Wally Epps MD [address], [place], [address], [facility] 4 17:02:18 Disorder of esophage al peristal sis 202184385 Active 2023 Wally Epps MD [address], [place], [address], [facility] 4 17:02:39 Hiatal hernia with gastroes ophageal reflux 959342621 Active 2023 Wally Epps MD [address], [place], [address], [facility] 4 16:32:07 Problem Notes None recorded. Procedures Surgical History Date Name Laterality Status Provider Name and Address Organization Details Recorded Time 07/17 Most Recent Mammogram completed Dorina Rothman [facility] 4 08:30:06 07/03 Colonoscopy completed Wally Epps MD [address], [place], [address] , [facility] 4 15:57:25 07/03 Egd diagnostic brush wash completed Wally Epps MD [address], [place], [address] , [facility] 4 12:51:51 09/20 Dilation and Curettage completed Dorina Rothman [facility] 3 13:34:15 09/20 cervical polypectomy completed Dorina Rothman [facility] 3 13:34:24 08/20 Biopsy of uterus lining completed Wally Epps MD [address] [facility] [address], [place], [address] , [facility] 3 10:40:55 02/28 esophagogastroduodenoscopy completed Refugio Rothman [facility] 3 13:39:27 03/30 Laparoscopic cholecystectomy completed Danna Ellis [facility] 1 11:09:39 08/26 Cystourethroscopy completed Wally Epps MD [address] [facility] [address], [place], [address] , [facility] 9 08:55:03 07/01 Back Surgery completed Wally Epps MD [address] [facility] [address], [place], [address] , [facility] 8 09:15:14 01/04 Unlisted px hands/fingers completed Tatyana gomez [place] [facility] 7 16:30:15 07/16 Thyroid Surgery completed Wally Epps MD [address] [facility] [address], [place], [address] , [facility] 6 14:15:33 05/21 Date of Last Pap Smear completed Danna Ellis [facility] 8 15:56:22 10/02 Back Surgery completed Wally Epps MD [address] [facility] [address], [place], [address] , [facility] 7 07:02:12 04/01 Other completed Wally Epps MD [address] [facility] [address], [place], [address] , [facility] 8 14:24:09 12/02 Appendectomy completed Deborah Bowling MA [facility] 6 09:53:44 12/02 Tubal Ligation completed Deborah Bowling MA [facility] 6 09:53:44 12/02 Arthroscopic Surgery completed Deborah Bowling MA [facility] 6 09:53:44 12/02 Arthroscopic Surgery completed Deborah Bowling MA [facility] 6 09:53:44 Imaging Results None recorded. Procedure Notes None recorded. Medical Equipment None Reported. Allergies Allergen ID Allergen Name Allergen Category Reaction Reaction Severity Criticality Documentation Date Start Date Code Code System Note Provider Name and Address Organization Details Recorded Time 85778 Oxycontin medicatio n vomiting Not available Not available 05/14/2016 99790 6 RxNorm DERRICK Anderson, [facility] 6 09:53:43 85680 amoxicill in medicatio n vomiting Not available low 02/22/2023 723 RxNorm Wally Epps MD [address], [place], [address], [facility] 4 14:32:40 Medications Name Sig Start Date Stop Date Status Note LastModified by Organization Details LastModified Time Prescript ion - Prior Authoriza tion Request 06/21 completed Not Available Not Available Not Available vitamin c 1000 mg tabs 08/04 completed Not Available Not Available Not Available cyclobenz aprine 10 mg tablet 01/11 completed Not Available Not Available Not Available prednison e 10 mg tablet 12/23 completed Not Available Not Available Not Available doxycycli ne hyclate 100 mg capsule 07/22 completed Not Available Not Available Not Available clindamyc in HCl 300 mg capsule active Not Available Not Available Not Available azithromy mamta 250 mg tablet TAKE 2 TABLETS BY MOUTH TODAY, THEN TAKE 1 TABLET DAILY FOR 4 DAYS 08/24 completed Not Available Not Available Not Available ibuprofen 800 mg tablet active Not Available Not Available Not Available Lidocaine Viscous 2 % mucosal solution active Not Available Not Available Not Available sulfameth oxazole 400 mg-trimet hoprim 80 mg tablet Take 1 tablet every day by oral route for 30 days. 05/14 completed prophyla xis for UTI preventi on Not Available Not Available Not Available valacyclo vir 1 gram tablet 12/23 completed Not Available Not Available Not Available hydrocodo ne 5 mg-acetam inophen 325 mg tablet 12/23 completed Not Available Not Available Not Available senna 8.6 mg tablet TAKE 2 TABLETS BY MOUTH AT BEDTIME FOR CONSTIPA TION active Not Available Not Available No t Available sucralfat e 1 gram tablet Take 1 tablet every day by oral route. 05/14 completed Not Available Not Available Not Available ondansetr on HCl 4 mg tablet Take 1 tablet 3 times a day by oral route as needed for 5 days. 04/22 completed Not Available Not Available Not Available prednison e 20 mg tablet TAKE 2 TABLETS BY MOUTH EVERY DAY FOR 5 DAYS 03/14 completed Not Available Not Available Not Available phentermi ne 15 mg capsule Take 1 capsule every day by oral route for 30 days. 01/22 completed Not Available Not Available Not Available doxycycli ne monohydra te 100 mg tablet 12/23 completed Not Available Not Available Not Available tramadol 50 mg tablet Take by oral route for 5 days. 08/09 completed Not Available Not Available Not Available acetamino phen 500 mg tablet 08/09 completed Not Available Not Available Not Available phentermi ne 30 mg capsule Take 1 capsule every day by oral route. active Not Available Not Available No t Available ketorolac 10 mg tablet Take 1 tablet every 6 hours by oral route as needed for 5 days. 04/22 completed Not Available Not Available Not Available famotidin e 20 mg tablet TAKE 1 TABLET BY MOUTH EVERY DAY AT BEDTIME NEEDED FOR ACID REFULX active Not Available Not Available No t Available Vitamin C 1,000 mg tablet Take by oral route. active Liquid form add to water Not Available Not Available Not Available lorazepam 0.5 mg tablet active Not Available Not Available Not Available methocarb rena 750 mg tablet 12/23 completed Not Available Not Available Not Available tamsulosi n 0.4 mg capsule Take 1 capsule every day by oral route for 5 days. 04/22 completed Not Available Not Available Not Available Robaxin 500 mg tablet Take 2 tablets 4 times a day by oral route. 12/23 completed Not Available Not Available Not Available benzonata te 100 mg capsule 12/30 completed Not Available Not Available Not Available pantopraz ole 40 mg tablet,de layed release TAKE 1 TABLET BY MOUTH 1/2 HOUR BEFORE BREAKFAS T 05/14 completed Not Available Not Available Not Available docusate sodium 100 mg capsule Take by oral route for 7 days. 08/09 completed Not Available Not Available Not Available omeprazol e 20 mg capsule,d elayed release Take 1 capsule every day by oral route for 90 days. active Not Available Not Available No t Available lisinopri l 20 mg-hydroc hlorothia zide 25 mg tablet TAKE 1 TABLET BY MOUTH EVERY DAY DIRECTED active Not Available Not Available No t Available hydroxyzi ne HCl 25 mg tablet TAKE 1 TABLET BY MOUTH THREE TIMES A DAY FOR 5 DAYS 05/14 completed Not Available Not Available Not Available hydrochlo rothiazid e 25 mg tablet Take 1 tablet every day by oral route for 90 days. active Not Available Not Available No t Available clobetaso l 0.05 % topical ointment APPLY A THIN LAYER TO THE AFFECTED AREA(S) BY TOPICAL ROUTE 2 TIMES PER DAY FOR NO MORE THAN 2 WEEKS 05/14 completed Not Available Not Available Not Available lorazepam 1 mg tablet 12/23 completed Not Available Not Available Not Available ibuprofen 600 mg tablet Take 1 tablet every day by oral route as needed for 10 days. 03/27 completed Not Available Not Available Not Available levofloxa mamta 500 mg tablet 12/30 completed Not Available Not Available Not Available methylpre dnisolone 4 mg tablets in a dose pack TAKE 6 TABLETS ON DAY 1 DIRECTED ON PACKAGE AND DECREASE BY 1 TAB EACH DAY FOR A TOTAL OF 6 DAYS 05/14 completed Not Available Not Available Not Available albuterol sulfate HFA 90 mcg/actua tion aerosol inhaler INHALE 2 PUFFS EVERY 4 HOURS BY INHALATI ON ROUTE NEEDED active Not Available Not Available No t Available ondansetr on 4 mg disintegr ating tablet DISSOLVE 1 TABLET BY MOUTH EVERY 6 TO 8 HOURS NEEDED FOR NAUSEA AND VOMITING 08/09 completed Not Available Not Available Not Available fluticaso ne propionat e 50 mcg/actua tion nasal spray,donna pension Inhale 2 sprays every day by intranas al route each nostril as needed. 03/29 completed Not Available Not Available Not Available cranberry 500 mg capsule Take 2 capsules every day by oral route. 08/09 completed Not Available Not Available Not Available naproxen 500 mg tablet Take 1 tablet twice a day by oral route as needed. 12/23 completed Not Available Not Available Not Available amoxicill in 875 mg-potass ium clavulana te 125 mg tablet TAKE 1 TABLET BY MOUTH TWICE A DAY FOR 10 DAYS 09/20 completed Not Available Not Available Not Available oxycodone 5 mg tablet active Not Available Not Available Not Available cyclobenz aprine 5 mg tablet TAKE 1 TABLET BY MOUTH THREE TIMES DAILY FOR 10 DAYS NEEDED 09/30 completed Not Available Not Available Not Available Ciprodex 0.3 %-0.1 % ear drops,donna pension INSTILL ONE DROP INTO RIGHT EAR DAILY FOR 5 DAYS 08/04 completed Not Available Not Available Not Available nitrofura ntoin monohydra te/macroc rystals 100 mg capsule active Not Available Not Available Not Available Cymbalta 30 mg capsule,d elayed release Take 2 capsules every day by oral route for 30 days. 12/23 completed Not Available Not Available Not Available Lyrica 75 mg capsule 12/23 completed Not Available Not Available Not Available milk thistle active Not Available Not Available Not Available AllerClea r D-24hr 10 mg-240 mg tablet,ex tended release TAKE 1 TABLET BY MOUTH DAILY DIRECTED 2023 active Not Available Not Available Not Avai lable hydrochlo rothiazid e 12.5 mg tablet Take 1 tablet every day by oral route for 90 days. 01/22 completed Not Available Not Available Not Available cholecalc iferol (vitamin D3) 50 mcg (2,000 unit) capsule TAKE 1 CAPSULE BY MOUTH EVERY DAY active Not Available Not Available No t Available Probiotic active Not Available Not Karla ilable Not Available turmeric active Not Available Not Avai lable Not Available Wegovy 0.25 mg/0.5 mL subcutane ous pen injector Inject 0.25 mg every week by subcutan eous route for 28 days. 12/08 completed Not Available Not Available Not Available berberine chloride 500 mg capsule Take 1 capsule every day by oral route. active Not Available Not Available No t Available Vitals Date Recorded Body height Body mass index (BMI) Body weight Heart rate Oxygen saturation Oxygen saturation in Arterial blood by Pulse oximetry Body temperature Systolic blood pressure Diastolic blood pressure Provider Name and Address Organization Details Last Updated DateTime 5 163.2 cm 33.7 kg/m2 95879.2 9 g 83 /min 96 % 96 % 98 [degF] 147 mm[Hg] 78 mm[Hg] Silvio cabrera MA [facility] 5 10:54:28 Social History Question Answer Notes LastModified by Organizat ion Details LastModified Time Tobacco Smoking Status Never Smoker DERRICK Anderson [facility] 05/14/2016 09:57:23 Do You Have An Advance Directive? Yes HCP/ -Syd ie, Sister-Khushboo yl Information not available 05/14/2024 What Is Your Level Of Alcohol Consumption? Occasional Information not available 05/14/2016 Is Blood Transfusion Acceptable In An Emergency? Yes Information not available 05/14/2016 What Is Your Level Of Caffeine Consumption? None Information not available 05/14/2024 How Much Tobacco Do You Chew? None Information not available 01/11/2017 Are You Currently Employed? Yes [employer] Information not available 12/30/2018 What Type Of Diet Are You Following? REGULAR Information not available 05/14/2016 Do You Or Have You Ever Used E-cigarettes Or Vape? 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 With Others , 5 Children, Dog, 2 Cats, Lizzards [employer] Chickens Information not available 05/14/2024 Do You Take Precautions To Prevent Distracted Driving? Yes Information not available 05/14/2016 How Often Do You Need To Have Someone Help You When You Read Instructions, Pamphlets, Or Other Written Material From Your Doctor Or Pharmacy? Never Information not available 05/14/2016 Have You Served In The ? No Information not available 01/11/2017 Have You Or Anyone In Your Household Had Any Of The Following Symptoms In The Last 14 Days: Sore Throat, Cough, Chills, Body Aches For Unknown Reasons, Shortness Of Breath For Unknown Reasons, Loss Of Smell, Loss Of Taste, Fever At Or Greater Than 100 Degrees Fahrenheit? No Information not available 05/30/2020 Are You Or Anyone In Your Household A Health Care Provider Or Emergency Responder? No Information not available 05/30/2020 To The Best Of Your Knowledge Have You Been In Close Proximity To Any Individual Who Tested Positive For COVID-19? No Information not available 05/30/2020 *AWV ONLY* Are You Presently Prescribed Opioid Medication By PCP Or Specialist? If YES -Provider Assess The Benefit For Other, Non-opioid Pain Therapies Instead, Even If The Patient Does Not Have OUD But Is Possibly At Risk. No Information not available 08/09/2021 What Was The Date Of Your Most Recent Tobacco Screening? 05/14/2024 Information not available 05/14/2024 How Many Children Do You Have? 4 1 Dtr, 3 Sons Information not available 05/14/2016 Seat Belts Used Routinely Yes Information not available 05/14/2016 Are You Sexually Active? Yes Information not available 01/11/2017 Smoke Alarm In Home Yes Information not available 05/14/2016 At What Age Did You Start Smoking Tobacco? 0 Information not available 01/11/2017 Are You Passively Exposed To Smoke? No Information not available 05/14/2016 Do You Or Have You Ever Used Smokeless Tobacco? Never Used Smokeless Tobacco Information not available 08/04/2019 How Much Tobacco Do You Smoke? No Information not available 01/11/2017 Do You Use Any Illicit Or Recreational Drugs? No Information not available 08/09/2021 Do You Use Sunscreen Routinely? Yes Information not available 05/14/2016 How Many Years Have You Smoked Tobacco? 0 Information not available 01/11/2017 Do You Or Have You Ever Used Any Other Forms Of Tobacco Or Nicotine? No Information not available 03/27/2024 Sex: Unknown Functional Status Question Answer Note LastModified by Organization D etails LastModified Time Are you able to walk? YESWOREST Information not available 08/09/2021 Are you able to care for yourself? Yes Information not available 05/14/2016 What is your exercise level? Moderate Information not available 05/14/2024 Mental Status None recorded. Family History Relationship Description Onset Age of this Age Resolved Age Notes LastModified by Organization Details LastModified Time Father Malignant neoplastic disease prosta te Not available 03/29/2021 13:40:03 Father Hypertensive disorder awychowski Not available 05/14 10:12:44 Maternal Grandmother Diabetes mellitus awychowski Not available 05/14 10:12:44 Maternal Grandmother Malignant neoplastic disease lympho ma Not available 03/29/2021 13:40:03 Maternal Grandfather Chronic obstructive pulmonary disease awychowski Not available 05/14 10:12:44 Maternal Grandfather History of malignant mesothelioma Not available 13:40:03 Maternal Grandfather Heart disease awychowski Not available 12/30 14:26:16 Mother Fibromyositi s Not available 2020 13:40:03 Mother Lyme disease Not avail able 03/29/2021 13:40:03 Sister Erlin l allergy Not available 2020 13:40:03 Brother Hypertensive disorder awychowski Not available 05/14 10:12:44 Medical History Condition Response Muscle, Joint, or Bone Problems Y Gynecological History Statement/Question Response Date of Last Pap Smear 05/21/2016 Date of Last Colonoscopy Most Recent Mammogram 07/17/2024 Most Recent Bone Density Obstetrics History GPAL:G 0 P 0 0 0 0 Immunizations Vaccine Type Date Status Note Provider Levi liz and Address Organization Details Recorded Time COVID-19, mRNA, LNP-S, PF, 30 mcg/0.3 mL dose 1 completed DERRICK Anderson [facility] 08/24/2022 15:30:43 COVID-19, mRNA, LNP-S, PF, 30 mcg/0.3 mL dose 1 completed DERRICK Anderson [facility] 08/24/2022 15:30:43 Tdap 8 completed DERRICK Anderson [facility] 08/24/2022 15:30:54 Influenza, split virus, quadrivalent , PF 8 cancelled patient objection Not Available [facility] 12/19/2019 02:22:11 Influenza, split virus, quadrivalent , PF 9 cancelled patient objection Not Available [facility] 12/19/2019 02:22:16 Past Encounters Encounter ID Performer Location Encounter Start Date Encounter Closed Date Diagnosis/Indication Diagnosis SNOMED-CT Code Diagnosis ICD10 Code Diagnosis Note [id number] Patti Torres Main Office [address] [place] [address] 01/22/2025 10:44:48 01/22/2025 11:21:09 Obesity 086792471 E66.9 Discussed this as a significan t mitigating factor with regards to HTN. Increased physical activity advised. Hypertensive disorder 38 953476 I10 Had been well controlled on diuretic, losing weight. Will titrate dose. Body mass index 30+ - obesity 170873813 E66.01 Z68.35 The patient is over 18 years old, with a BMI over 30 kg/m. Actively engaging in behavioral modificati ons, including dietary changes and exercise, for more than three months and is committed to continuing these alongside the medication Will increase water and protein intake. Has smart watch and will target 10K steps daily. Regular weight check was advised and will follow up in 3 months. Phentermin e is so far being tolerated and effective (except for BP). If no improvemen t in 3 months consider additional treatment options. Patient has appt with endocrine at [facility] as well so I look forward to that input/rosalinda baires. Will screen for adrenal insufficie ncy along with f/u renal labs with HCTZ dose increase. Health Concerns Section Related Observation LastModified by Organization Detai ls LastModified Time None Recorded Concern Status LastModified by Organization Details LastModified Time None Recorded Payers Encounter Date Sequence Insurance Name Policy Number Policy Casey Covered Member ID Casey Member ID Guarantor Name 01/22/2025 1 [facility] [facility] (POS) [id number] Fiona Haile [id number] Fiona Haile Notes Date Note Type Note Provider Name and Address Organization Details Recorded Time 01/22/2025 text/html Hypertension F/UReported bypatient.Associated Symptoms:no dizziness; no lightheadedness; no chest pain; no shortness of breath; no palpitations; no edema Lifestyle:regular exercise; limiting/avoiding salt Medications:taking medications as directed; no side effects from medicationNotes:Had been well controlled on low dose HCTZ.ObesityReported bypatient.Diagnosis Summary:age at start of weight gain 36; diagnosis: obesity; additional diagnosis: hypertension Context:no inhaled steroids; no oral steroids Associated Symptoms:no depression; no chronic illness; no hypothyroidism Co-morbidities:overwei ght/obese;hypertension Notes:Thyroid function testing was normal, post hemithyroidectomy (2015) with pathology showing benign adenoma. She is s/p cholecystectomy in 2020. 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 GLP1 denied by her insurance, so trying phentermine which she started last month and is noticing a difference. Patti trujillo, [facility] 01/29/2025 12:51:53 OBGyn Episode No OBEpisode recorded.
--- OUTSIDE RECORDS SUMMARY | 2025-02-01 07:50 | XMS_ITS | Data Portability ---
Author Organization [facility], Main Office Address [address] [place] [address] Care Team Providers Care Manager Rn Case Name Role Phone WALLY EPPS Primary Care Provider AWA OWEN Urologist DENA CONTRERAS General Surgeon [facility] Brick Tender BERNA MENDEZ Brick Tender PATTI ENRIQUEZ Neurosurgeon BASIL GONZALES Core Carrier [id number] Surg Tech Assessment Encounter Date Assessment Date Assessment LastModified by Organization Details LastModified Time 03/27/2024 03/27/2024 Initial Treatmen t Immediate Washing: Remove the plant oils. Avoid hot water as it can cause the pores to open and absorb more oil. Clothing and Items: Wash clothing, tools, and any objects that may have come into contact with poison stewart to prevent re-exposure. 2. Symptom Management Apply compress sent. Take Antihistamines sent, do no take with otc antihistamine, be mindful the risk of sedation, so don't drive until you know how you feel. Start oral steroid, topical also given but avoid face, neck, armpit and groin, do no use for more than 2 weeks. 3. Skin Care Do Not Scratch Keep Skin Clean: Gently clean the skin daily to keep it free from bacteria. 4. Monitoring Watch for Signs of Infection: Check the rash regularly for signs of infection, such as increased redness, swelling, pus, or changes in skin color. Also, monitor for fever. Follow-Up: Schedule follow-up visits if symptoms worsen or do not improve within a week or two. 5. When to Seek Professional Help Go to emergency room if you feel like your throat is closing, itchy throat or develop fever. [email or web address] Not available 03/27/2024 15:07:34 Plan of Treatment Reminders Order Date Submit Date Provider Last Modified By Organization Details Last Modified Time Details Appointments FOLLOW UP 2024 01:30P M Wally Epps MD Not available Not available Not available Lab CMP, serum or plasma 2024 025 [facility] Draw Station, [facility] [address], [place], [address], 01/22/2025 12:07:08 cortis ol, am, serum 2024 025 [facility] Draw [facility], [facility] [address], [place], [address], 01/29/2025 12:51:50 CMP, serum or plasma 2023 024 [facility] (Centralized Electronic Ordering - All Locations), Patient Can Go To The Location Of Their Choice, 06/28/2024 12:05:28 CBC w/ auto diff 2023 024 [facility] ([facility]ized [facility] Ordering - All Locations), Patient Can Go To The Location Of Their Choice, 06/28/2024 12:05:27 urinal ysis, comple te 2023 024 [facility] ([facility]ized [facility] Ordering - All Locations), Patient Can Go To The Location Of Their Choice, 06/28/2024 12:05:29 lipid panel, serum 2023 024 [facility] ([facility]ized [facility] Ordering - All Locations), Patient Can Go To The Location Of Their Choice, 06/28/2024 12:05:29 vitami n D, 25-hyd geovani, total, serum 2023 024 [facility] ([facility]ized [facility] Ordering - All Locations), Patient Can Go To The Location Of Their Choice, [id number] 06/28/2024 12:05:30 TSH + free T4, serum 2023 024 [facility] ([facility]ized [facility] Ordering - All Locations), Patient Can Go To The Location Of Their Choice, [id number] 06/28/2024 12:05:26 Referral gyneco logist referr toney morris to delmi cruz 2023 024 [email or web address] Not available 06/11/2024 13:14:07 nutrit ionist /dieti wilbur referr al 2023 024 [email or web address] [address], [address], [place], [address], 07/22/2024 12:38:32 Procedures None record ed. Surgeries None record ed. Imaging MAMMO, screen ing, bilate ral - Perfor m Diagno stic Mammog randee and Breast Ultras ound if needed / Perfor m Ultras ound Guided Aspira tion and/or Breast Biopsy if warran mercedes 2023 024 FARHEEN Not available 08/15/2024 16:11:23 Medication Orders hydroc hlorot hiazid e 25 mg tablet 2024 025 [facility], [address] [place] [address], [id number], 01/22/2025 11:20:36 phente rmine 30 mg capsul e 2024 025 [facility], [address] [place] [address], [id number], 01/22/2025 11:20:38 phente rmine 15 mg capsul e 2024 025 [facility], [address] [place] [address], [id number], 01/22/2025 11:10:41 omepra zole 20 mg capsul e,destiny yed releas e 2023 024 [facility], [address] [place] [address], [id number], 10/22/2024 16:31:48 Wegovy 0.25 mg/0.5 mL subcut aneous pen inject or [address] [facility], [address] [place] [address], [address], 12/08/2024 10:54:33 Medrol (Yuriy) 4 mg tablet s in a dose pack 2023 024 [id number] [address] [facility] [place], [address], 05/14/2024 13:55:22 Domebo ro 952 mg-1,3 47 mg topica l powder in packet 2023 024 [id number], [address] [place], [address], 05/14/2024 13:55:19 Aveeno Soothi ng Bath packet 2023 024 [id number], [address] [place], [address], 05/14/2024 13:55:13 hydrox yzine HCl 25 mg tablet 2023 024 [id number], [address] [place], [address], 05/14/2024 13:55:34 clobet asol 0.05 % topica l ointme nt 2023 024 [id number], [address] [place], [address], 05/14/2024 13:55:06 Patient TargetsNo targets recorded. Patient Instructions Encounter Date Encounter Id Patient Instructions Last Modified By Organization Details Last Modified Time 05/14/2024 [id number] gastroesophageal reflux disease (GERD): care instructions [email or web address] Not available 05/14/2024 14:52:11 Cervical Cancer Screening [email or web address] Not available 06/10/2024 20:17:00 Preventing Depression From Coming Back: Care Instructions [email or web address] Not available 05/14/2024 14:52:10 starting a weigh t loss plan: care instructions [email or web address] Not available 05/14/2024 14:52:10 Nutrition Referr al and Weight Management Follow-up Information [email or web address] Not available 05/14/2024 14:52:10 10/22/2024 [id number] When You Want to Lose Weight: Care Instructions [email or web address] Not available 10/22/2024 16:31:24 body mass index: care instructions [email or web address] Not available 10/22/2024 16:31:24 learning about healthy weight awychowski Not available 10/22/2024 16:31:24 12/08/2024 [id number] body mass index: care instructions [email or web address] Not available 12/08/2024 11:33:54 learning about healthy weight awychowski Not available 12/08/2024 11:33:54 01/22/2025 [id number] When You Want to Lose Weight: Care Instructions [email or web address] Not available 01/29/2025 12:51:50 Reason for Referral Surg Tech/dietitian Refer ral for Body mass index 30+ - obesity Referring Physician: [facility], Encounter Date: 05/14/2024 Core Carrier Referral for Sc reening for malignant neoplasm of cervix Patient to schedule Referring Physician: Wally Epps [facility], Encounter Date: 05/14/2024 Results Created Date Observation Date Name Description Value Unit Range Abnormal Flag Note LastModifiedBy Organization Detail LastModifiedTime 06/27/2006/28/2024 TSH+F REE T4 TSH 1.330 uIU/m L 0.450- 4.500 normal Not Available [facility] ([facility]) [address] [facility], [place], [address], 06/28/2024 12:05:26 06/27/2006/28/2024 TSH+F REE T4 T4,free(dire ct) 1.28 NG/dL 0.82-1 .77 normal Not Available [facility] ([facility]) [address] [place], [address], 06/28/2024 12:05:26 06/27/20 24 06/28/2024 CBC WITH DIFFE RENTI AL/PL ATELE T WBC 5.7 x10e3 /uL 3.4-10 .8 normal Not Available [facility] ([facility]) [address] [place], [address], 06/28/2024 12:05:27 06/27/20 24 06/28/2024 CBC WITH DIFFE RENTI AL/PL ATELE T RBC 5.07 x10e6 /uL 3.77-5 .28 normal Not Available [facility] ([facility]) [address] [place], [address], 06/28/2024 12:05:27 06/27/20 24 06/28/2024 CBC WITH DIFFE RENTI AL/PL ATELE T hemoglobin 13.9 g/dL 11.1-1 5.9 normal Not Available [facility] ([facility]) [address] [place], [address], 06/28/2024 12:05:27 06/27/20 24 06/28/2024 CBC WITH DIFFE RENTI AL/PL ATELE T hematocrit 42.9 % 34.0-4 6.6 normal Not Available [facility] ([facility]) [address] [place], [address], 06/28/2024 12:05:27 06/27/20 24 06/28/2024 CBC WITH DIFFE RENTI AL/PL ATELE T MCV 85 fL 79-97 normal Not Available [facility] ([facility]) [address] [place], [address], 06/28/2024 12:05:27 06/27/20 24 06/28/2024 CBC WITH DIFFE RENTI AL/PL ATELE T MCH 27.4 pg 26.6-3 3.0 normal Not Available [facility] ([facility]) [address] [facility], [place], [address], 06/28/2024 12:05:27 06/27/20 24 06/28/2024 CBC WITH DIFFE RENTI AL/PL ATELE T MCHC 32.4 g/dL 31.5-3 5.7 normal Not Available [facility] ([facility]) [address] [facility], [place], [address], 06/28/2024 12:05:27 06/27/20 24 06/28/2024 CBC WITH DIFFE RENTI AL/PL ATELE T RDW 13.5 % 11.7-1 5.4 Not Available [facility] ([facility]) [address] [facility], [place], [address], 06/28/2024 12:05:27 06/27/20 24 06/28/2024 CBC WITH DIFFE RENTI AL/PL ATELE T platelets 182 x10e3 /uL 150-45 0 normal Not Available [facility] ([facility]) [address] [facility], [place], [address], 06/28/2024 12:05:27 06/27/20 24 06/28/2024 CBC WITH DIFFE RENTI AL/PL ATELE T neutrophils 60 % not estab. normal Not Available [facility] ([facility]) [address] [facility], [place], [address], 06/28/2024 12:05:27 06/27/20 24 06/28/2024 CBC WITH DIFFE RENTI AL/PL ATELE T lymphs 30 % not estab. normal Not Available [facility] ([facility]) [address] [facility], [place], [address], 06/28/2024 12:05:27 06/27/20 24 06/28/2024 CBC WITH DIFFE RENTI AL/PL ATELE T monocytes 7 % not estab. normal Not Available [facility] ([facility]) [address] [place], [address], 06/28/2024 12:05:27 06/27/20 24 06/28/2024 CBC WITH DIFFE RENTI AL/PL ATELE T eos 2 % not estab. normal Not Available [facility] ([facility]) [address] [facility], [place], [address], 06/28/2024 12:05:27 06/27/20 24 06/28/2024 CBC WITH DIFFE RENTI AL/PL ATELE T basos 1 % not estab. normal Not Available [facility] ([facility]) [address] [facility], [place], [address], 06/28/2024 12:05:27 06/27/20 24 06/28/2024 CBC WITH DIFFE RENTI AL/PL ATELE T immature cells DEPENDENCY COUNSELOR Not Available [facility] ([facility]) [address] [place], [address], 06/28/2024 12:05:27 06/27/20 24 06/28/2024 CBC WITH DIFFE RENTI AL/PL ATELE T neutrophils (absolute) 3.5 x10e3 /uL 1.4-7. 0 normal Not Available [facility] ([facility]) [address] [place], [address], 06/28/2024 12:05:27 06/27/20 24 06/28/2024 CBC WITH DIFFE RENTI AL/PL ATELE T lymphs (absolute) 1.7 x10e3 /uL 0.7-3. 1 normal Not Available [facility] ([facility]) [address] [place], [address], 06/28/2024 12:05:27 06/27/20 24 06/28/2024 CBC WITH DIFFE RENTI AL/PL ATELE T monocytes(ab solute) 0.4 x10e3 /uL 0.1-0. 9 normal Not Available [facility] ([facility]) [address] [facility], [place], [address], 06/28/2024 12:05:27 06/27/20 24 06/28/2024 CBC WITH DIFFE RENTI AL/PL ATELE T eos (absolute) 0.1 x10e3 /uL 0.0-0. 4 normal Not Available [facility] ([facility]) [address] [facility], [place], [address], 06/28/2024 12:05:27 06/27/20 24 06/28/2024 CBC WITH DIFFE RENTI AL/PL ATELE T baso (absolute) 0.0 x10e3 /uL 0.0-0. 2 normal Not Available [facility] ([facility]) [address] [facility], [place], [address], 06/28/2024 12:05:27 06/27/20 24 06/28/2024 CBC WITH DIFFE RENTI AL/PL ATELE T immature granulocytes 0 % not estab. Not Available [facility] ([facility]) [address] [place], [address], 06/28/2024 12:05:27 06/27/20 24 06/28/2024 CBC WITH DIFFE RENTI AL/PL ATELE T immature grans (abs) 0.0 x10e3 /uL 0.0-0. 1 Not Available [facility] ([facility]) [address] [place], [address], 06/28/2024 12:05:27 06/27/20 24 06/28/2024 CBC WITH DIFFE RENTI AL/PL ATELE T NRBC DEPENDENCY COUNSELOR Not Available [facility] ([facility]) [address] [facility], [place], [address], 06/28/2024 12:05:27 06/27/20 24 06/28/2024 CBC WITH DIFFE RENTI AL/PL ROSALINDA Morris hematology comments: DEPENDENCY COUNSELOR Not Available [facility] ([facility]) [address] [facility] [place], [address], 06/28/2024 12:05:27 06/27/20 24 06/28/2024 COMP. METAB OLIC PANEL (14) glucose 96 mg/dL 70-99 normal Not Available [facility] ([facility]) [address] [facility] [place], [address], 06/28/2024 12:05:28 06/27/20 24 06/28/2024 COMP. METAB OLIC PANEL (14) BUN 16 mg/dL 6-24 normal Not Available [facility] ([facility]) [address] [facility] [place], [address], 06/28/2024 12:05:28 06/27/20 24 06/28/2024 COMP. METAB OLIC PANEL (14) creatinine 0.88 mg/dL 0.57-1 .00 normal Not Available [facility] ([facility]) [address] [facility] [place], [address], 06/28/2024 12:05:28 06/27/20 24 06/28/2024 COMP. METAB OLIC PANEL (14) eGFR 82 mL/mi n/1.7 3 >59 normal Not Available [facility] ([facility]) [address] [facility] [place], [address], 06/28/2024 12:05:28 06/27/20 24 06/28/2024 COMP. METAB OLIC PANEL (14) BUN/creatini ne ratio 18 9-23 normal Not Available [facility] ([facility]) [address] [facility] [place], [address], 06/28/2024 12:05:28 06/27/20 24 06/28/2024 COMP. METAB OLIC PANEL (14) sodium 138 mmol/ L 134-14 4 normal Not Available [facility] ([facility]) [address] [place], [address], 06/28/2024 12:05:28 06/27/20 24 06/28/2024 COMP. METAB OLIC PANEL (14) potassium 4.4 mmol/ L 3.5-5. 2 normal Not Available [facility] ([facility]) [address] [place], [address], 06/28/2024 12:05:28 06/27/20 24 06/28/2024 COMP. METAB OLIC PANEL (14) chloride 103 mmol/ L 96-106 normal Not Available [facility] ([facility]) [address] [place], [address], 06/28/2024 12:05:28 06/27/20 24 06/28/2024 COMP. METAB OLIC PANEL (14) carbon dioxide, total 22 mmol/ L 20-29 normal Not Available [facility] ([facility]) [address] [place], [address], 06/28/2024 12:05:28 06/27/20 24 06/28/2024 COMP. METAB OLIC PANEL (14) calcium 9.0 mg/dL 8.7-10 .2 normal Not Available [facility] ([facility]) [address] [place], [address], 06/28/2024 12:05:28 06/27/20 24 06/28/2024 COMP. METAB OLIC PANEL (14) protein, total 7.1 g/dL 6.0-8. 5 normal Not Available [facility] ([facility]) [address] [place], [address], 06/28/2024 12:05:28 06/27/20 24 06/28/2024 COMP. METAB OLIC PANEL (14) albumin 4.1 g/dL 3.9-4. 9 normal Not Available [facility] ([facility]) [address] [place], [address], 06/28/2024 12:05:28 06/27/20 24 06/28/2024 COMP. METAB OLIC PANEL (14) globulin, total 3.0 g/dL 1.5-4. 5 Not Available [facility] ([facility]) [address] [facility], [place], [address], 06/28/2024 12:05:28 06/27/20 24 06/28/2024 COMP. METAB OLIC PANEL (14) bilirubin, total 0.7 mg/dL 0.0-1. 2 normal Not Available [facility] ([facility]) [address], [place], [address], 06/28/2024 12:05:28 06/27/20 24 06/28/2024 COMP. METAB OLIC PANEL (14) alkaline phosphatase 65 IU/L 44-121 normal Not Available [facility] ([facility]) [address] [facility], [place], [address], 06/28/2024 12:05:28 06/27/20 24 06/28/2024 COMP. METAB OLIC PANEL (14) AST (SGOT) 17 IU/L 0-40 normal Not Available [facility] ([facility]) [address] [facility], [place], [address], 06/28/2024 12:05:28 06/27/20 24 06/28/2024 COMP. METAB OLIC PANEL (14) ALT (SGPT) 19 IU/L 0-32 normal Not Available [facility] ([facility]) [address] [facility], [place], [address], 06/28/2024 12:05:28 06/27/20 24 06/28/2024 URINA LYSIS , COMPL ETE specific gravity 1.027 1.005- 1.030 normal Not Available [facility] ([facility]) [address] [facility], [place], [address], 06/28/2024 12:05:29 06/27/20 24 06/28/2024 URINA LYSIS , COMPL ETE pH 6.5 5.0-7. 5 normal Not Available [facility] ([facility]) [address] [facility], [place], [address], 06/28/2024 12:05:29 06/27/20 24 06/28/2024 URINA LYSIS , COMPL ETE urine-color YELLOW yellow Not Available [facility] ([facility]) [address] [facility], [place], [address], 06/28/2024 12:05:29 06/27/20 24 06/28/2024 URINA LYSIS , COMPL ETE appearance CLEAR clear Not Available [facility] ([facility]) [address] [facility], [place], [address], 06/28/2024 12:05:29 06/27/20 24 06/28/2024 URINA LYSIS , COMPL ETE WBC esterase NEGATI VE negati ve Not Available [facility] ([facility]) [address] [facility], [place], [address], 06/28/2024 12:05:29 06/27/20 24 06/28/2024 URINA LYSIS , COMPL ETE protein TRACE negati ve/tra ce Not Available [facility] ([facility]) [address] [facility], [place], [address], 06/28/2024 12:05:29 06/27/20 24 06/28/2024 URINA LYSIS , COMPL ETE glucose NEGATI VE negati ve Not Available [facility] ([facility]) [address] [facility], [place], [address], 06/28/2024 12:05:29 06/27/20 24 06/28/2024 URINA LYSIS , COMPL ETE ketones NEGATI VE negati ve Not Available [facility] ([facility]) [address] [place], [address], 06/28/2024 12:05:29 06/27/20 24 06/28/2024 URINA LYSIS , COMPL ETE occult blood TRACE negati ve abnormal Not Available [facility] ([facility]) [address] [place], [address], 06/28/2024 12:05:29 06/27/20 24 06/28/2024 URINA LYSIS , COMPL ETE bilirubin NEGATI VE negati ve Not Available [facility] ([facility]) [address] [place], [address], 06/28/2024 12:05:29 06/27/20 24 06/28/2024 URINA LYSIS , COMPL ETE urobilinogen ,semi-qn 1.0 mg/dL 0.2-1. 0 normal Not Available [facility] ([facility]) [address] [place], [address], 06/28/2024 12:05:29 06/27/20 24 06/28/2024 URINA LYSIS , COMPL ETE nitrite, urine NEGATI VE negati ve Not Available [facility] ([facility]) [address] [place], [address], 06/28/2024 12:05:29 06/27/20 24 06/28/2024 URINA LYSIS , COMPL ETE microscopic examination SEE BELOW: Micro scopi c was indic ated and was perfo rmed. Not Available [facility] ([facility]) [address] [place], [address], 06/28/2024 12:05:29 06/27/20 24 06/28/2024 URINA LYSIS , COMPL ETE WBC NONE SEEN /hpf 0 - 5 Not Available [facility] ([facility]) [address] [place], [address], 06/28/2024 12:05:29 06/27/20 24 06/28/2024 URINA LYSIS , COMPL ETE RBC 0-2 /hpf 0 - 2 Not Available [facility] ([facility]) [address] [facility], [place], [address], 06/28/2024 12:05:29 06/27/20 24 06/28/2024 URINA LYSIS , COMPL ETE epithelial cells (non renal) 0-10 /hpf 0 - 10 Not Available [facility] ([facility]) [address] [facility], [place], [address], 06/28/2024 12:05:29 06/27/20 24 06/28/2024 URINA LYSIS , COMPL ETE epithelial cells (renal) DEPENDENCY COUNSELOR Not Available [facility] ([facility]) [address] [facility], [place], [address], 06/28/2024 12:05:29 06/27/20 24 06/28/2024 URINA LYSIS , COMPL ETE casts NONE SEEN /lpf none seen Not Available [facility] ([facility]) [address] [facility], [place], [address], 06/28/2024 12:05:29 06/27/20 24 06/28/2024 URINA LYSIS , COMPL ETE cast type DEPENDENCY COUNSELOR Not Available [facility] ([facility]) [address] [facility], [place], [address], 06/28/2024 12:05:29 06/27/20 24 06/28/2024 URINA LYSIS , COMPL ETE crystals DEPENDENCY COUNSELOR Not Available [facility] ([facility]) [address] [place], [address], 06/28/2024 12:05:29 06/27/20 24 06/28/2024 URINA LYSIS , COMPL ETE crystal type DEPENDENCY COUNSELOR Not Available [facility] ([facility]) [address] [facility], [place], [address], 06/28/2024 12:05:29 06/27/20 24 06/28/2024 URINA LYSIS , COMPL ETE mucus threads DEPENDENCY COUNSELOR Not Available [facility] ([facility]) [address] [facility], [place], [address], 06/28/2024 12:05:29 06/27/20 24 06/28/2024 URINA LYSIS , COMPL ETE bacteria NONE SEEN none seen/f ew Not Available [facility] ([facility]) [address] [facility], [place], [address], 06/28/2024 12:05:29 06/27/20 24 06/28/2024 URINA LYSIS , COMPL ETE yeast DEPENDENCY COUNSELOR Not Available [facility] ([facility]) [address] [facility] [place], [address], 06/28/2024 12:05:29 06/27/20 24 06/28/2024 URINA LYSIS , COMPL ETE trichomonas DEPENDENCY COUNSELOR Not Available [facility] ([facility]) [address] [facility], [place], [address], 06/28/2024 12:05:29 06/27/20 24 06/28/2024 URINA LYSIS , COMPL ETE comment DEPENDENCY COUNSELOR Not Available [facility] ([facility]) [address] [facility] [place], [address], 06/28/2024 12:05:29 06/27/20 24 06/28/2024 URINA LYSIS , COMPL ETE microscopic examination DEPENDENCY COUNSELOR Not Available [facility] ([facility]) [address] [facility] [place], [address], 06/28/2024 12:05:29 06/27/20 24 06/28/2024 LIPID PANEL cholesterol, total 124 mg/dL 100-19 9 normal Not Available [facility] ([facility]) [address] [facility] [place], [address], 06/28/2024 12:05:29 06/27/20 24 06/28/2024 LIPID PANEL triglyceride s 55 mg/dL 0-149 normal Not Available [facility] ([facility]) [address] [place], [address], 06/28/2024 12:05:29 06/27/20 24 06/28/2024 LIPID PANEL HDL cholesterol 46 mg/dL >39 normal Not Available [facility] ([facility]) [address], [place], [address], 06/28/2024 12:05:29 06/27/20 24 06/28/2024 LIPID PANEL VLDL cholesterol ana 12 mg/dL 5-40 Not Available [facility] ([facility]) [address] [facility] [address], [place], [address], 06/28/2024 12:05:29 06/27/20 24 06/28/2024 LIPID PANEL LDL chol calc [facility] 66 mg/dL 0-99 Not Available [facility] ([facility]) [address] [facility] [place], [address], 06/28/2024 12:05:29 06/27/20 24 06/28/2024 LIPID PANEL LDL calc comment: DEPENDENCY COUNSELOR Not Available [facility] ([facility]) [address] [facility] [address], [place], [address], 06/28/2024 12:05:29 06/27/20 24 06/28/2024 VITAM IN D, 25-HY DROXY vitamin D, 25-hydroxy 36.1 NG/mL 30.0-1 00.0 Vitam in D defic iency has been defin ed by the Insti tute of Medic ine and an Endoc rine Socie ty pract ice guide line as a level of serum 25-OH vitam in D less than 20 ng/mL (1,2) . The Endoc rine Socie ty went on to furth er defin e vitam in D insuf ficie ncy as a level betwe en 21 and 29 ng/mL (2). 1. IOM (Inst itute of Medic ine). 2010. Dieta ry refer ence higinio es for calci um and D. Lydia guido [place]: The [facility] Press . 2. Holic k MF, Vargas morris [place], Babak off-F errar i FULLER, et al. Evalu ation , treat ment, and preve ntion of vitam in D defic iency : an Endoc rine Socie ty clini ana pract ice guide line. JCEM. 2010; 96(7) :1911 -30. Not Available [facility] ([facility]) [address], [place], [address], 06/28/2024 12:05:30 05/22/20 24 08/20/2023 MAMMO , scree claudia, bilat eral No observ ation record ed. [facility] (Medical Records) [address] [place], [address], 10/22/2024 15:58:07 08/15/20 24 07/17/2024 MAMMO , scree claudia, bilat eral No observ ation record ed. [facility] [address] [place], [address], 10/22/2024 15:58:07 09/17/20 24 09/15/2024 RF, upper gastr ointe sukhdev l tract + small bowel , w/ air, w/ contr ast PO No observ ation record ed. [facility] (Medical Records) [address] [place], [address], 10/22/2024 15:58:07 Result Notes None recorded. Problems Name Problem SNOMED Code Status Onset Date Resolution Date Notes Provider Name and Address Organization Details Recorded Time Chronic back pain 283089310 Active Wally Epps MD [address] [facility] [address], [place], [address], [facility] 6 21:57:10 Body mass index 25-29 - overweig ht 129467809 Completed 12/23/2017 Wally Epps MD [address] [facility] [address], [place], [address], [facility] 8 14:29:58 Hyperten sive disorder 42372637 Active Wally Epsp MD [address], [place], [address], [facility] 6 21:57:10 Mixed anxiety and depressi ve disorder 282972275 Active Wally Epps MD [address], [place], [address], [facility] 6 21:57:10 Constipa tion 72203577 Completed 12/23/2017 Wally Epps MD [address], [place], [address], [facility] 4 16:21:50 Dizzines s 834029982 Completed 01/11/2017 Tatyana marques [place] null, [facility] 7 16:26:14 Bone pain 79668935 Completed 12/30/2018 Wally Epps MD [address], [place], [address], [facility] 9 14:28:06 Paresthe sherif of hand 891326728 Completed 12/23/2017 Wally Epps MD [address], [place], [address], [facility] 8 14:30:20 Goiter 1997205 Completed 12/23/2017 Wally Epps MD [address], [place], [address], [facility] 8 14:30:23 Allergic rhinitis 40567569 Active Wally Epps MD [address], [place], [address], [facility] 6 21:57:10 Thyroid nodule 869765785 Completed 12/23/2017 Wally Epps MD [address], [place], [address], [facility] 8 14:30:13 Acquired trigger finger 5694394 Completed 12/23/2017 Wally Epps MD [address], [place], [address], [facility] 8 14:29:44 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 2015 Wally Epps MD [address], [place], [address], [facility] 6 14:10:57 Displace ment of lumbar interver tebral disc without myelopat hy 34820877 Active 2016 Wally Epps MD [address], [place], [address], [facility] 7 19:29:47 Lumbar radiculo saroj 677032523 Active 2016 Wally Epps MD [address], [place], [address], [facility] 7 19:30:42 Recurren t urinary tract infectio n 022010335 Active 2017 Wally Epps MD [address], [place], [address], [facility] 8 19:50:03 Sinusiti s 72963034 Completed 201712/30/2018 Wally Epps MD [address], [place], [address], [facility] 9 14:22:40 Exophtha lmos 24033997 Active 2017 Wally Epps MD [address], [place], [address], [facility] 8 10:51:07 Moderate major depressi on, single episode 00228841 Active 2017 Wally Epps MD [address], [place], [address], [facility] 8 13:59:37 Generali zed anxiety disorder 45150481 Active 2017 Wally Epps MD [address], [place], [address], [facility] 8 13:59:39 Obesity 445538388 Active 2018 Wally Epps MD [address], [place], [address], [facility] 9 14:39:22 Body mass index 30+ - obesity 776974320 Completed 201805/30/2020 [facility] 5 12:50:03 Kidney stone 27808604 Completed 201808/30/2019 Wally Epps MD [address], [place], [address], [facility] 9 08:55:46 Umbilica l hernia 416633692 Active 2018 fat containi ng Wally Epps MD [address], [place], [address], [facility] 9 06:05:56 History of calculus of kidney 792411986 Active 2018 right Wally Epps MD [address], [place], [address], [facility] 9 21:19:40 Jeannine liz 310496010 Completed 202010/22/2024 Wally Epps MD [address], [place], [address], [facility] 4 16:17:53 History of SARS-CoV -2 78248244444 2533301 Active 2021 Wally Epps MD [address], [place], [address], [facility] 2 15:20:23 Exercise -induced asthma 38345749 Active 2021 Had previous ly had RAJI inhaler for use with exercise . Notes that she improved with weight loss around 2014 and had not used inhaler again until prescrib ed her for cough post COVID 2021. Jorge Alberto Delcid MD [address], [place], [address], [facility] 2 16:10:41 Gastroes ophageal reflux disease 830695166 Active 2021 [facility] 2 11:46:07 Thromboc ytopenic disorder 516625703 Completed 202103/14/2023 Wally Epps MD [address], [place], [address], [facility] 3 14:39:40 History of subtotal thyroide ctomy 461130903 Active 2022 Wally Epps MD [address], [place], [address], [facility] 3 14:40:00 Vitamin D deficien cy 57274314 Active 2022 Wally Epps MD [address], [place], [address], [facility] 3 14:41:21 Abnormal uterine bleeding 83175190433 100 Active 2022 Wally Epps MD [address], [place], [address], [facility] 3 12:26:52 Endometr ial polyp Active 2022 Wally Epps MD [address], [place], [address], [facility] 3 12:55:05 Hysteros copy with removal of submucou s leiomyom bk Active 2022 Wally Epps MD [address], [place], [address], [facility] 3 07:52:58 Uterine leiomyom a 63085656 Active 2022 Wally Epps MD [address], [place], [address], [facility] 3 07:53:23 Constipa tion 01455396 Active Wally Epps MD [address], [place], [address], [facility] 4 16:21:50 Blood in urine 27449994 Active 2023 Wally Epps MD [address], [place], [address], [facility] 4 06:57:45 Internal hemorrho ids 83137293 Active 2023 Wally Epps MD [address], [place], [address], [facility] 4 12:52:04 Erosive esophagi tis 18725789 Active 2023 Wally Epps MD [address], [place], [address], [facility] 4 12:52:18 Hiatal hernia 72221600 Active 2023 type 1 Wally Epps MD [address], [place], [address], [facility] 4 17:02:18 Disorder of esophage al peristal sis 034103117 Active 2023 Wally Epps MD [address], [place], [address], [facility] 4 17:02:39 Hiatal hernia with gastroes ophageal reflux 334913875 Active 2023 Wally Epps MD [address], [place], [address], [facility] 4 16:32:07 Problem Notes None recorded. Procedures Surgical History Date Name Laterality Status Provider Name and Address Organization Details Recorded Time 07/17 Most Recent Mammogram completed Dorina Rothman [facility] 4 08:30:06 07/03 Colonoscopy completed Wally Epps MD [address] [facility] [address], [place], [address] , [facility] 4 15:57:25 07/03 Egd diagnostic brush wash completed Wally Epps MD [address] [facility] [address], [place], [address] , [facility] 4 12:51:51 09/20 Dilation and Curettage completed Dorina Rothman [facility] 3 13:34:15 09/20 cervical polypectomy completed Dorina Rothman [facility] 3 13:34:24 08/20 Biopsy of uterus lining completed Wally Epps MD [address] [facility] [address], [place], [address] , [facility] 3 10:40:55 02/28 esophagogastroduodenoscopy completed Refugio Rothman [facility] 3 13:39:27 03/30 Laparoscopic cholecystectomy completed Danna Ellis [facility] 1 11:09:39 08/26 Cystourethroscopy completed Wally Epps MD [address], [place], [address] , [facility] 9 08:55:03 07/01 Back Surgery completed Wally Epps MD [address], [place], [address] , [facility] 8 09:15:14 01/04 Unlisted px hands/fingers completed Tatyana gomez MA [facility] 7 16:30:15 07/16 Thyroid Surgery completed Wally Epps MD [address], [place], [address] , [facility] 6 14:15:33 05/21 Date of Last Pap Smear completed Danna Ellis [facility] 8 15:56:22 10/02 Back Surgery completed Wally Epps MD [address], [place], [address] , [facility] 7 07:02:12 04/01 Other completed Wally Epps MD [address], [place], [address] , [facility] 8 14:24:09 12/02 Appendectomy completed Deborah Bowling MA [facility] 6 09:53:44 12/02 Tubal Ligation completed Deborah Bowling MA [facility] 6 09:53:44 12/02 Arthroscopic Surgery completed Deborah Bowling MA [facility] 6 09:53:44 12/02 Arthroscopic Surgery completed Deborah Bowling MA [facility] 6 09:53:44 Imaging Results Imaging Date Name Status LastModified by Organization Details LastModified Time 08/20/2023 MAMMO, screening, bilateral completed [facility] (Medical Records) [address] [place], [address], 10/22/2024 15:58:07 07/17/2024 MAMMO, screening, bilateral completed [facility] [address] [place], [address], 10/22/2024 15:58:07 09/15/2024 RF, upper gastrointestinal tract + small bowel, w/ air, w/ contrast PO completed [facility] (Medical Records) [address] [place], [address], 10/22/2024 15:58:07 Procedure Notes None recorded. Medical Equipment None Reported. Allergies Allergen ID Allergen Name Allergen Category Reaction Reaction Severity Criticality Documentation Date Start Date Code Code System Note Provider Name and Address Organization Details Recorded Time 54117 Oxycontin medicatio n vomiting Not available Not available 05/14/2016 14949 6 RxNorm Deborah Bowling MA [facility], [facility] 6 09:53:43 53616 amoxicill in medicatio n vomiting Not available low 02/22/2023 723 RxNorm Wally Epps MD [address] [facility] [address], [place], [address] [place] [address] 4 14:32:40 Medications Name Sig Start Date [...] t Available Vitals Date Recorded Body height Heart rate Oxygen saturation Oxygen saturation in Arterial blood by Pulse oximetry Body temperature Provider Name and Address Organization Details Last Updated DateTime 4 163.2 cm 85 /min 97 % 97 % 98.5 [degF] Tatyana marques [facility] 4 14:45:52 Date Recorded Respiratory rate Provider Name a or Address Organization Details Last Updated DateTime 03/27/2024 81 /min Mack Zavaleta MD [address], [address], [facility] 03/27/2024 15:03:28 Date Recorded Body height Body mass index (BMI) Body weight Heart rate Oxygen saturation Oxygen saturation in Arterial blood by Pulse oximetry Body temperature Systolic blood pressure Diastolic blood pressure Provider Name and Address Organization Details Last Updated DateTime 4 163.2 cm 35.1 kg/m2 52764.0 3 g 90 /min 97 % 97 % 98.3 [degF] 134 mm[Hg] 84 mm[Hg] [facility] 4 14:09:29 Date Recorded Body height Body mass index (BMI) Body weight Heart rate Oxygen saturation Oxygen saturation in Arterial blood by Pulse oximetry Body temperature Systolic blood pressure Diastolic blood pressure Provider Name and Address Organization Details Last Updated DateTime 4 163.2 cm 35.3 kg/m2 19029.6 2 g 97 /min 98 % 98 % 98.3 [degF] 162 mm[Hg] 75 mm[Hg] [facility] 4 15:43:59 Date Recorded Systolic blood pressure Diastolic blood pressure Provider Name and Address Organization Details Last Updated DateTime 10/22/2024 143 mm[Hg] 81 mm[Hg] Wally Epps MD [address] [address], [place], [address], [facility] 10/22/2024 17:14:48 Date Recorded Body height Body mass index (BMI) Body weight Heart rate Oxygen saturation Oxygen saturation in Arterial blood by Pulse oximetry Body temperature Systolic blood pressure Diastolic blood pressure Systolic blood pressure Diastolic blood pressure Provider Name and Address Organization Details Last Updated DateTime 5 163.2 cm 35.8 kg/m2 32839.4 g 72 /min 100 % 100 % 97.7 [degF] 167 mm[Hg] 93 mm[Hg] 146 mm[Hg] 70 mm[Hg] Marielos Das [facility] [place] 5 11:02:34 Date Recorded Body height Body mass index (BMI) Body weight Heart rate Oxygen saturation Oxygen saturation in Arterial blood by Pulse oximetry Body temperature Systolic blood pressure Diastolic blood pressure Provider Name and Address Organization Details Last Updated DateTime 5 163.2 cm 33.7 kg/m2 11293.2 9 g 83 /min 96 % 96 % 98 [degF] 147 mm[Hg] 78 mm[Hg] Silvio cabrera MA [facility] 5 10:54:28 Social History Question Answer Notes LastModified by Organizat ion Details LastModified Time Tobacco Smoking Status Never Smoker DERRICK Anderson, [facility] 05/14/2016 09:57:23 Do You Have An Advance [...] Currently Employed? Yes [employer] Information not available 12/30/2018 What Type Of Diet Are You Following? REGULAR Information not available 05/14/2016 Do You Or Have You Ever Used E-cigarettes Or Vape? 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 No [email or web address] Information not available 01/11/2017 Have You Or [...] Immunizations Vaccine Type Date Status Note Provider Nam e and Address Organization Details Recorded Time COVID-19, mRNA, LNP-S, PF, 30 mcg/0.3 mL dose 1 completed DERRICK Anderson [facility] 08/24/2022 15:30:43 COVID-19, mRNA, LNP-S, PF, 30 mcg/0.3 mL dose 1 completed DERRICK Anderson [facility] 08/24/2022 15:30:43 Tdap 8 completed DERRICK Anderson [facility] 08/24/2022 15:30:54 Influenza, split virus, quadrivalent , PF 8 cancelled patient objection Not Available On license of [facility] 12/19/2019 02:22:11 Influenza, split virus, quadrivalent , PF 9 cancelled patient objection Not Available On license of [facility] 12/19/2019 02:22:16 Past Encounters Encounter ID Performer Location Encounter Start Date Encounter Closed Date Diagnosis/Indication Diagnosis SNOMED-CT Code Diagnosis ICD10 Code Diagnosis Note [id number] Wally Epps MD Main Office [address] [facility] [address] [facility] [place] [address] 05/14/2016 09:25:10 05/14/2016 10:46:32 Adult health examination 775130903 Z00.01 Immunizati on status utd per pt, will verify when prior PCP records are received. Flu advised in the Fall. Regular dental and ophtho care advised as well as seat belt and sunscreen use. Distracted driving discussed. Advance directives in place. Body mass index 25-29 - overweight 893290218 Z68.27 Hypertensive disorder 38 805330 I10 Well controlled . If she continues to have orthostati c symptoms will changes dosing. Mixed anxi ety and depressive disorder 271631392 F41.8 Symptoms not impacting daily function, and pt not interested in meds/couns eling at this time. Will follow. Constipation 67084428 K5 9.00 Dizziness 208401459 R42 Bone pain 84542517 M89.8 X9 Paresthesia of hand 3090 25447 R20.2 Start with labs. Consider EMG and further eval if persistent /worse. Goiter 1423644 E04.9 Screening for malignant neoplasm of cervix 136355416 Z12.4 Pt will schedule room service waiter eval rancho. [id number] Wally Epps MD Main Office [address] [facility] [address] [place] [address] 08/24/2016 13:48:45 08/24/2016 14:33:17 Mixed anxiety and depressive disorder 949266836 F41.8 Symptoms not impacting daily function, and pt not interested in meds/couns eling at this time. Will follow. Constipation 14612373 K5 9.00 improved Thyroid nodule 873222240 E04.1 s/p thyroidect sabrina. Due for labs and has not heard from endocrine regarding f/u. Will check labs and contact info if abnormal. Essential hypertension 76650730 I10 Has not had meds today, and well controlled previously . Will continue current regimen. Tendinitis of wrist 4238 46773 M77.8 wrist splint advised. Call inb/worse. Multiple joint pain 3567 8005 M25.50 Has his of MIMI positivity and and concern for lupus. Consider rheum re-eval if confirmed. [id number] Wally Epps MD Main Office [address] [facility] [address] [place] [address] 12/14/2016 13:45:56 12/14/2016 14:47:36 Paresthesia of hand 256005606 R20.2 Has had normal B12 and D levels recently. Possible CTS. Will ask ortho to help evaluated further. Muscle pain 13357693 M79 .1 Screen for myositis/i nflammatio n. If abnormal consider f/u rheum eval. Multiple joint pain 3567 8005 M25.50 Has history of MIMI positivity and and concern for lupus. Consider rheum re-eval if confirmed. Hypertensive disorder 38 765740 I10 Well controlled , continue current regimen. [id number] Ronald Montiel MD Main Office [address] [address] 01/11/2017 16:20:56 01/11/2017 16:44:12 Acute pharyngitis 548425743 J02.9 No evidence for bacterial infection. Will treat swelling with medrol dose pack. She aslo is taking vicodin for her hand (had surgery on it last week). [id number] Melina corbin Main Office [address] [place] [address] 06/10/2017 15:05:27 06/10/2017 16:25:16 Lumbosacral radiculitis 35619744 M54.17 pt declines oow note advised pt to call us if worse - may need mri ac can get pt back to neurosurge on 25 minute office visit with greater than 50% of the visit face-to-fa ce with the patient and/or family providing counseling and/or coordinati on of care. 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 finish pred taper as dir, could use pepcid prn gi upset will get L-S mri ac can get pt back to neurosurge on pt did not tolerate gabapentin in past, may need PA for Lyrica 25 minute office visit with greater than 50% of the visit face-to-fa ce with the patient and/or family providing counseling and/or coordinati on of care. Spasm of back muscles 20 7209918 M62.830 Tension-type headache 39 9112785 G44.209 neck / trap m. spasm, no h/o caffeine withdrawal FULLER, no sinus FULLER, no h/o migraines Nausea and vomiting 1693 1999 R11.2 [id number] Wally Epps MD Main Office [address] [address] [place] [address] 12/23/2017 13:52:35 12/23/2017 14:51:13 Adult health examination 361391144 Z00.00 Immunizati on status partially updated, flu declined. Will screen based on risk factors. Regular dental and ophtho care advised as well as seat belt and sunscreen use. Distracted driving discussed. Advance directives in place. Administra tion of viral vaccine 96739612 Z23 Needs infl uenza immunization 112719488 Z23 Screening for malignant neoplasm of cervix 561701605 Z12.4 Pt will schedule room service waiter eval rancho. Hypertensive disorder 38 378908 I10 Fair control off of meds (on her own). Will monitor for now. If >130/90 at f/u will resume diuretic. Fatigue 47330739 R53.83 Chronic and likely multifacto rial. Will reassess labs. Paresthesi a of lower extremity 465197807 R20.2 ? if related to back issues/sabina geries. Will rule out B12 deficiency . Obesity 016201993 E66.9 Body mass index 30+ - obesity 336184606 Z68.30 [id number] Wally Epps MD Main Office [address] [address] [place] [address] 07/22/2018 13:26:48 07/22/2018 14:02:40 Generalized anxiety disorder 33266960 F41.1 Moderate m ajor depression, single episode 00462052 F32.1 Overall coping well with active marital issues. Other relationsh ips and work function are intact. Letter written to accomodate her dog which is therapeuti c under these circumstan prudence. Advised to call if having worsening symptoms as therapy referral and medication options can be discussed. [id number] Wally Epps MD Main Office [address] [address] [place] [address] 09/30/2018 14:39:56 09/30/2018 15:35:27 Acute sinusitis 71022802 J01.90 Based on duration of symptoms and second sickening there is a high likelihood of a bacterial infection. Pt advised of common/ser ious potential med side effects and to call with any problems or if symptoms recur. [id number] Wally Epps MD Main Office [address] [facility] [address] [place] [address] 12/30/2018 13:29:33 12/30/2018 14:49:39 Adult health examination 632791068 Z00.00 Immunizati on status partially updated, flu declined. Will screen based on risk factors. Regular dental and ophtho care advised as well as seat belt and sunscreen use. Distracted driving discussed. Advance directives in place. Needs infl uenza immunization 199281183 Z23 Screening for malignant neoplasm of cervix 175215707 Z12.4 Pt will schedule room service waiter eval rancho. Moderate m ajor depression, single episode 52917111 F32.1 Overall coping well with active marital issues. Other relationsh ips and work function are intact. Hypertensive disorder 38 081609 I10 Fair control off of meds (on her own). Will resume diuretic. Fatigue 57882801 R53.83 Chronic and likely multifacto rial. Will reassess labs. Obesity 911271182 E66.9 Body mass index 30+ - obesity 460244734 Z68.32 Screening for malignant neoplasm of breast 947786489 Z12.39 [id number] Wally Epps MD Main Office [address] [facility] [address] [place] [address] 03/27/2019 15:02:11 03/27/2019 15:43:13 Hypertensive disorder 41767959 I10 Not well controlled . Pt significan t reason for med compliance , pt states that she will resume diuretic rancho and call with any problems. Noncomplia nce with medication regimen 039331204 Z91.14 Obesity 650807610 E66.9 Z68.30 Discussed this as a significan t mitigating factor with regards to HTN. Increased physical activity advised. [id number] Wally Epps MD Main Office [address] [facility] [address] [place] [address] 08/04/2019 13:36:59 08/04/2019 14:16:50 Kidney stone 15440310 N20.0 ? if this was the etiology of her left flank pain or incidental finding. Pain has resolved. Pt has urology appointmen t scheduled. Referral provided. Hypertensive disorder 38 810152 I10 Under better control. Continue current regimen. [id number] Wally Epps MD Telehealt h [address] [facility] [address] [place] [address] 04/22/2020 09:09:34 04/22/2020 12:42:01 Hypertensive disorder 23425567 I10 Under better control per pt. Will verify in office at visit next month. Continue current regimen. Blood in urine 84685800 R31.9 Will reassess. If persistent will need to pursue the CT that was deferred and follow up with urology. Cramp in l ower leg associated with rest 833277449 G47.62 Screen for common metabolic causes. Consider neurogenic /vascular eval if persistent /worse. Adult [facility] th examination 289979984 Z00.00 Immunizati on status partially updated, flu declined. Will screen based on risk factors. Regular dental and ophtho care advised as well as seat belt and sunscreen use. Distracted driving discussed. Advance directives in place. [id number] Wally Epps MD Main Office [address] [facility] [address] [place] [address] 05/30/2020 14:03:15 05/30/2020 15:15:48 Adult health examination 178518407 Z00.00 Immunizati on status partially updated, flu advised in the Fall. Will screen based on risk factors. Regular dental and ophtho care advised as well as seat belt and sunscreen use. Distracted driving discussed. Advance directives in place. Screening for malignant neoplasm of breast 009736082 Z12.39 Screening for malignant neoplasm of cervix 967462096 Z12.4 Pt will schedule room service waiter eval rancho. Allergic rhinitis 661355 04 J30.9 Well controlled on current regimen. Rx sent to help with cost. Body mass index 30+ - obesity 427193880 E66.9 Z68.31 [id number] Patti Torres Main Office [address] [facility] [address] [place] [address] 03/29/2021 13:56:14 03/29/2021 15:58:05 Cholelithiasis with obstruction 19998209 K80.81 I do not think the patient should wait to have surgry given that she is symptomati c which do not appear to be mild. None the less I have placed a Stat surgery referral and patient i aware this may not happen right away and is aware to go ed if symptoms get worse. Acute cholecystitis 6527 5009 K81.0 I recommende d the patient be seen in ED, she understand the risk of not doing so, this includes cholangiol itis and perforatio n. As patient is symptomati c I do not think any oral dissolutio n therapy or shock wave therapy would be appropriat e she notes nausea and vomiting with exquisite tenderness radiating to her shoulder. The pain is not well controlled with tramadol. She notes to chill and feeling feverish. Despite me recommenda tion patient wanted to wait and see if we can refer her to gen surgery rancho as she wanted to avoid ed, I advised we can try but my recommenda tions stands she should go to ED given her sx. I offered to prescribe abx ppx but patient also declined. I told her if pain is worse, she develops fever or chills then the should report to the ED. Transition of care from emergency department to self-care [id number] 98628 Z76.89 ED d/c summary reviewed, meds reviewed. [id number] Jose Luis Parra PA-C Main Office [address] [address] 08/09/2021 13:34:57 08/09/2021 14:13:54 Adult health examination 244500259 Z00.00 Hypertensive disorder 38 241963 I10 stable, cont med as dir Moderate m ajor depression, single episode 89692692 F32.1 mild on phq today, cont to monitor Screening for malignant neoplasm of breast 435156907 Z12.39 Screening for malignant neoplasm of cervix 053287216 Z12.4 Body mass index 30+ - obesity 174238880 E66.9 Z68.32 Thyroid fo llicular adenoma 524883411 D34 Screening for cardiovascular system disease 999821755 Z13.6 Multiple joint pain 3567 8005 M25.50 camps a lot - she requests lyme test Anemia 240548596 D64.9 Allergic rhinitis 340780 04 J30.9 stable [id number] Wally Epps MD Main Office [address] [place] [address] 02/08/2022 14:42:26 02/08/2022 15:29:28 Moderate major depression, single episode 19750648 F32.1 Overall coping well with active marital issues. Other relationsh ips and work function are intact. Hypertensive disorder 38 963257 I10 Fairly well controlled on low dose diuretic, will continue current regimen. Acute sinusitis 70597602 J01.90 Based on duration of symptoms and second sickening there is a high likelihood of a bacterial infection. Pt advised of common/ser ious potential med side effects and to call with any problems or if symptoms recur. [id number] Jorge Alberto Delcid MD Telehealt [address] [address] [place] [address] 08/24/2022 15:12:27 08/24/2022 16:34:17 Acute sinusitis 22166678 J01.90 Wheezing 26085988 R06.2 Exercise-i nduced asthma 69090145 J45.990 Notes improvemen t in symptoms with intended weight loss in the past. [id number] Patti Torres Main Office [address] [place] [address] 09/20/2022 11:03:40 09/20/2022 13:11:33 Adult health examination 526319500 Z00.00 Recommende d to get new covid booster. All other vaccines UTD. 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 Screening for malignant neoplasm of breast 772771471 Z12.39 Screening for malignant neoplasm of cervix 016418656 Z12.4 Right uppe r quadrant pain 424727858 R10.11 s/p lap glenroy last yr, has had ruq pain int over past 6 months Will check labs. no pain curr -- last had ruq pain ~ 4 wks ago --- lately moving bowels daily, uses psyllium husks ? has int. hepatic flexure syndrome -- rec increase water intake f/u next month - if persists/w orse - then consider gi eval Allergic rhinitis 796624 J30.9 Stable. Body mass index 30+ - obesity 599574007 E66.9 Z68.32 Has tried different diets including keto and WW. Still cant lose weight. Will check thyroid. Chronic back pain 530707 002 M54.9 Stable and ongoing. Still having ongoing back pain worse with activity throughout the day. Takes hot baths and rests. cont hep, go back to gym Displaceme nt of lumbar intervertebral disc without myelopathy 03593511 M51.26 See above. F/u with neurosurge on as needed. Exercise-i nduced asthma 40770295 J45.990 Stable. Cont meds prn. Hypertensive disorder 38 892237 I10 Elevated in office today. Pt needs to restart HCTZ and check BPs at home. Will recheck labs. Mixed anxi ety and depressive disorder 095233106 F41.8 Feels stable. Recommende d to see therapy if inclined to do so. PHQ9 score 0. GAD7 score 9. Recurrent urinary tract infection 545195283 N39.0 Stable with prophylact ic antibiotic s. F/u with urology yearly. 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 Recheck labs. Feeling fatigue and weight gain. Gastroesop hageal reflux disease 589947693 K21.9 Takes antacid as needed. Knows what food aggravates it. Discussed staying away from acidic and fatty foods. Limit coffee use. Hyperlipidemia 82860735 E78.5 Altered abundio wel function 85614555 R19.4 Hyperbilirubinemia 17271 006 E80.6 [id number] Jose Luis Parra PA-C Main Office [address] [address] 10/22/2022 14:32:50 10/22/2022 16:00:39 Hypertensive disorder 60634430 I10 stable - cont HCTZ and check BPs at home Right uppe r quadrant pain 696991117 R10.11 s/p lap glenroy last yr, has had ruq pain int over past 6 months Will check labs. no pain curr -- last had ruq pain ~ 4 wks ago --- lately moving bowels daily, uses psyllium husks ? has int. hepatic flexure syndrome -- rec increase water intake f/u next month - if persists/w orse - then consider gi eval . - no further ruq pain, but see below Gastroesop hageal reflux disease 107836598 K21.9 resume ppi, and see above - will get gi eval ---- consider pepcid ac 1-2x/day (cheaper at [facility] - acid controller ) Thrombocyt openic disorder 738337181 D69.6 Candy - your platelet count is falling - I would repeat this - All of your other labs were fine. Vitamin D deficiency 347 23918 E55.9 [id number] Melina corbin Main Office [address] [facility] [address] [place] [address] 02/22/2023 13:00:25 02/22/2023 14:07:46 Dyspnea 189386908 R06.00 Covid 12/24, 5th time. exam with decreased breath sounds, will get cxr, treat with prednisone nad albuterol with spacer and have pt f/u at appt 03/[address] already [address] d with Dr Prieto Unclear if prolonged respirator y symptoms from Covid, pt also with poorly controlled Max nd will be getting an EGD and is recently on PPI, paroxysmal coughing described by pt could certainly be triggered by reflux. Gastroesop hageal reflux disease 747495360 K21.9 see above on PPI History of SARS-CoV-2 29 82232783 21513847 Z86.16 last late 12/24, had 5 infections total with Covid [id number] Wally Epps MD Main Office [address] [facility] [address] [place] [address] 03/14/2023 13:34:48 03/14/2023 14:29:12 Hypertensive disorder 02230769 I10 Fairly well controlled on low dose diuretic, will continue current regimen. Mixed anxi ety and depressive disorder 949471910 F41.8 Symptoms not impacting daily function, and pt not interested in meds/couns eling at this time. Will follow. Body mass index 30+ - obesity 397079376 E66.9 Z68.32 Working on caloric monitoring /restricti on. Generalize d anxiety disorder 39170822 F41.1 Moderate m ajor depression, single episode 07145481 F32.1 Overall coping well. Other relationsh ips and work function are intact. History of subtotal thyroidectomy 098462492 Z90.09 Vitamin D deficiency 347 02729 E55.9 [id number] Mack Zavaleta MD Main Office [address] [facility] [address] [place] [address] 03/27/2024 14:26:32 03/27/2024 15:04:32 Contact dermatitis caused by urushiol from [facility] stewart 726760096 L25.5 [id number] Wally Epps MD Main Office [address] [facility] [address] [place] [address] 05/14/2024 13:36:44 05/14/2024 14:55:22 Adult health examination 265316481 Z00.00 COVID booster advised as well as flu in the Fall. Will screen based on risk factors. Regular dental and ophtho care advised as well as seat belt and sunscreen use. Distracted driving discussed. Advance directives in place. Gastroesop hageal reflux disease 657941501 K21.9 Symptoms well controlled , EGD being scheduled. Vitamin D deficiency 347 72832 E55.9 Will see if persistent . Screening for malignant neoplasm of breast 817692990 Z12.39 Will request recent mammogram from [facility]. Body mass index 30+ - obesity 323038667 E66.01 Z68.35 Working on caloric monitoring /restricti on. Going to pursue nutrition counseling . History of subtotal thyroidectomy 569285219 Z90.09 Hypertensive disorder 38 424583 I10 Fairly well controlled on low dose diuretic, will continue current regimen. Needs CVD risk assessment . Major depr ession in remission 37459969 F32.5 Will monitor Screening for malignant neoplasm of colon 566266341 Z12.11 Following with [facility], EGD and colonoscop y being scheduled. Screening for malignant neoplasm of cervix 495015888 Z12.4 Pt will schedule room service waiter eval rancho. [id number] Patti Torres Main Office [address] [facility] [address] [place] [address] 10/22/2024 15:28:12 10/22/2024 16:37:59 Influenza vaccination declined 321433591 Z28.21 Obesity 243597183 E66.9 Z68.30 Discussed this as a significan t mitigating factor with regards to HTN. Increased physical activity advised. Hypertensive disorder 38 087742 I10 Had been well controlled on diuretic and better on recheck. Will continue current regimen for now. Body mass index 30+ - obesity 519160941 E66.01 Z68.35 The patient is over 18 years old, with a BMI over 30 kg/m. Actively engaging in behavioral modificati ons, including dietary changes and exercise, for more than three months and is committed to continuing these alongside the medication We discussed the injection technique, advising alternate injection sites weekly and cleaning the area with alcohol beforehand . The patient is to update me in two weeks about their progress, allowing for dose adjustment s as needed. Patient is also tasked with confirming medication availabili ty with the pharmacy. The patient is to monitor neck for any lumps and report any findings. Side effects discussed include gastrointe stinal issues such as constipati on, bowel obstructio n, nausea, and vomiting, with nausea and constipati on being particular ly common in the first two days post-injec tion. These symptoms usually subside with regular use. Instructed to avoid combining this treatment with other GLP-1 receptor agonists. Regular weight check was advised and will follow up in 3 months. Erosive esophagitis 4071 9004 K22.10 Advised to start PPI and H2B prn for at east 1 month. Needs to follow up with GI regularly. Hiatal her ena with gastroesophageal reflux 790060804 K21.00 Grade 1 HH. [id number] Wally Epps MD Main Office [address] [address] 12/08/2024 10:37:08 12/08/2024 11:32:59 Body mass index 30+ - obesity 342490726 E66.01 Z68.35 The patient is over 16 [...] and will follow up in 3 months. See if phentermin e is tolerated and effective. If no improvemen t in 3 months consider additional treatment options. Hypertensive disorder 38 849995 I10 Had been well controlled on diuretic and better on recheck. Will continue current regimen for now, while working on weight loss. [id number] Patti Torres Main Office [address] [facility] [place] [place] [address] 01/22/2025 10:44:48 01/22/2025 11:21:09 Obesity 582694976 E66.9 Discussed this as a significan t mitigating factor with regards to HTN. Increased physical activity advised. Hypertensive disorder 38 822443 I10 Had been well controlled on diuretic, losing weight. Will titrate dose. Body mass index 30+ - obesity 217009559 E66.01 Z68.35 The patient is over 16 [...] options. Patient has appt with endocrine at [facility] as well so I look forward to that input/rosalinda baires. Will screen for adrenal insufficie ncy along with f/u renal labs with HCTZ dose increase. Health Concerns Section Related Observation LastModified by Organization Detai ls LastModified Time None Recorded Concern Status LastModified by Organization Details LastModified Time None Recorded Advance Directives Directive Y: HCP/ -Anna Hunter r-Deb Payers Encounter Date Sequence Insurance Name Policy Number Policy Casey Covered Member ID Casey Member ID Guarantor Name 03/27/2024 1 [facility] [facility] [employer] (POS) [id number] Candy M Mic [id number] Candy Mic 05/14/2024 1 [employer] (POS) [id number] Candy M Mic [id number] Candy Mic 10/22/2024 1 [employer] (POS) [id number] Candy M Mic [id number] Candy Mic 12/08/2024 1 [employer] (POS) [id number] Candy M Mic [id number] Candy Mic 01/22/2025 1 [facility] (POS) [id number] Fiona Haile [id number] Fiona Haile Notes Date Note Type Note Provider Name and Address Organization Details Recorded Time 03/27/2024 text/html Rash/Skin LesionReported bypatient.Location:[facility] Quality:itchy;painful Context:no new detergents or skin products; no one else with similar rash; not scratching; exposure to poison stewart Associated Symptoms:no fever; no cold symptoms; no nausea; no vomiting; no diarrhea; no urinary symptoms; no chills; no fatigue; no change in weight Treatment History:calamine, cortiosone 10mg.Notes:No hoarseness of voice, no shortness of breath, no throat closing symptoms. Mack Zavaleta MD [address] [address], [place], [phone], [facility] 03/27/2024 15:08:48 05/14/2024 text/html Generic HPI TemplateReported bypatient.Notes:Here for a physical. Feels well. Overdue for dentist but seeing ophtho regularly. Wally Epps MD [address] [address], [place], [phone], [facility] 06/10/2024 20:17:56 10/22/2024 text/html GERD RefluxRepor mercedes bypatient.SymptomsAsym ptomatic; no difficulty swallowing; no pain swallowing; no postprandial pain Quality:burning Severity:improving Duration:present for 6-12 monthsNotes:Had EGD since last visit which showed HH, gastritis/erosive esophagitis, currently on famotidine. Unable to adhere to fodmap diet.Hypertension F/UReported bypatient.Associated Symptoms:no dizziness; no lightheadedness; no chest pain; no shortness of breath; no palpitations; no edema Lifestyle:regular exercise; limiting/avoiding salt Medications:taking medications as directed; no side effects from medicationNotes:Has been well controlled on diuretic.ObesityReport ed bypatient.Diagnosis Summary:age at start of weight gain 36; diagnosis: obesity; additional diagnosis: hypertension Context:no inhaled steroids; no oral steroids Associated Symptoms:no depression; no chronic illness; no hypothyroidism Co-morbidities:overwei ght/obese;hypertension Notes:Thyroid function testing was normal, post hemithyroidectomy (2015) with pathology showing benign adenoma. She is s/p cholecystectomy in 2020. Saw peanut sorter a couple of times since last visit. Patti trujillo [facility] 11/04/2024 15:05:44 12/08/2024 text/html Hypertension F/UReported bypatient.Associated Symptoms:no dizziness; no lightheadedness; no chest pain; no shortness of breath; no palpitations; no edema Lifestyle:regular exercise; limiting/avoiding salt Medications:taking medications as directed; no side effects from medicationNotes:Had been well controlled on diuretic.ObesityReport ed bypatient.Diagnosis Summary:age at start of weight gain 36; diagnosis: obesity; additional diagnosis: hypertension Context:no inhaled steroids; no oral steroids Associated Symptoms:no depression; no chronic illness; no hypothyroidism Co-morbidities:overwei ght/obese;hypertension Notes:Thyroid function testing was normal, post hemithyroidectomy (2015) with pathology showing benign adenoma. She is s/p cholecystectomy in 2020. Has seen peanut sorter and continues to gain weight. GLP1 denied. Willing to try alternative. Wally Epps MD [address] [address], [place], [phone], [facility] 12/09/2024 21:16:05 01/22/2025 text/html Hypertension F/UReported bypatient.Associated Symptoms:no dizziness; [...] is s/p cholecystectomy in 2020. Has seen peanut sorter and continues to gain weight. GLP1 denied by her insurance, so trying phentermine which she started last month and is noticing a difference. Patti trujillo, [facility] 01/29/2025 12:51:53 OBGyn Episode No OBEpisode recorded.
[2025-02-01 07:53] VITALS: BP 146/90; PULSE 78; O2SAT 95; BMI 34.6
--- NOTE | 2025-02-01 07:53 | MHC.OFFVIS ---
Vital Signs 02/01/25 07:53 Height 5 ft 3 in Weight 195 lb 5.273 oz BMI 34.6 BP 146/90 H Blood Pressure Location Lt brachial Position Sitting Pulse 78 Pulse Source Pulse Oximeter Pulse Oximetry (%) 95 Oxygen Delivery Method Room Air Intake Visit Reasons: Other specified postprocedural states Intake Note: Patient present today for Other specified postprocedural states office visit. Pressure Tester Operator Required: No Accompanied by: Self / Same As Patient Allergies acetaminophen [From PERCOCET] Allergy (Unknown, Verified 12/21/24 13:41) Nausea and Vomiting oxycodone [From PERCOCET] Allergy (Unknown, Verified 12/21/24 13:41) Nausea and Vomiting amoxicillin Adverse Reaction (Verified 12/21/24 13:41) Nausea and Vomiting Medication List - Last Reconciled 02/01/25 by Karishma Chew MD cholecalciferol (vitamin D3) 50 mcg PO DAILY famotidine (Pepcid) 20 mg PO BEDTIME PRN hydrochlorothiazide 25 mg PO DAILY omeprazole 20 mg PO DAILY phentermine 30 mg PO DAILY sennosides (Natural Senna Laxative) 17.2 mg (2 x 8.6 mg) PO BEDTIME sulfamethoxazole-trimethoprim 400-80 mg 1 tab PO DIRECTED HPI Comments Details: 44-year-old female here today for initial evaluation for obesity. s/p partial thyroidectomy, left side? s/P parathyroid surgery? 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 Physical exam General: sitting comfortably in no acute distress HEENT: normocephalic/atraumatic, EOM intact, moist oral mucosa Neck: supple, symmetrical,, has dorsocervical or supraclavicular fat pads Cardiac: normal heart sounds Pulm: normal breath sounds B/L, no added breath sounds Abd: not distended, no tenderness, no purple striae Extremities: no edema, no signs of myxedema Laboratory Tests 06/25/23 12:29 TSH 1.89 [facility] Medical History (Updated 02/01/25 @ 08:45 by Karishma Chew MD) Obesity (BMI 30.0-34.9) Hypertension Hx of malignant neoplasm of gallbladder Tubal ligation evaluation Kidney stones Surgical History History of parathyroidectomy History of esophagogastroduodenoscopy (EGD) Previous back surgery History of lumbar fusion Tubal ligation status History of cholecystectomy H/O hand surgery History of ankle surgery H/O knee surgery S/P removal of thyroid nodule Hx of appendectomy Social History Household Members: Family Alcohol intake: current Alcohol intake frequency: holidays/special occasions only Patient Tobacco Use Status: Never used Tobacco Physical Exam Vital Signs: Last Vital Signs Pulse 78 02/01/25 07:53 BP 146/90 H 02/01/25 07:53 Pulse Ox 95 02/01/25 07:53 Oxygen Delivery Method Room Air 02/01/25 07:53 BMI result Body Mass Index 34.6 Assessment & Plan Assessment & Plan (1) Obesity (BMI 30.0-34.9): Code(s): E66.811 - Obesity, class 1 Category: Medical Plan: 44-year-old female here today for initial evaluation of weight management. Current BMI 34.6 kg per m2, with current weight 195 lb. Used to be 210 lb 2 months ago which was her max weight. Currently on phentermine 30 mg capsule daily started on phentermine 15 mg daily on 12/12/2024, dose increased on January 27 to 30 mg daily. She has a uncontrolled blood pressure, with systolics in the 140s. She is only on hydrochlorothiazide. I told her that with the uncontrolled blood pressure I would recommend against using this medication for weight loss. Unfortunately insurance does not cover GLP 1 agonist. She has had a history of gallbladder surgery, no history of thyroid cancer in the family. No history of pancreatitis. Given comorbidities of hypertension, with with current BMI above 30 milk kg per m2, she would qualify for GLP 1 agonist, however insurance is not approving it. At this time patient appears quite frustrated. It seems like she is doing well with maintaining good amount of activity and trying to cut down calories. At this time I encouraged some of these habits and we went over some education. I will also like to check her thyroid function as well as I evaluate her for hypercortisolism. No signs of acromegaly. I reviewed with patient the importance of weight loss as it relates to decreasing the risk of diabetes, cardiovascular disease, obstructive sleep apnea,PCOS, arthritis. We reviewed the importance of decreasing total calorie consumption, minimizing fats and carbohydrates. We reviewed the 500 calorie deficit method. I recommended avoiding eating after 7 PM at night. She was advised to start exercising 30-45 mins a day Or walking more than 10,000 steps a day. Plan: -check TSH, free T4 -unclear whether she has a history of thyroid surgery, we will obtain records, making her sign release of records -check 24 hour urine cortisol and creatinine -check A1c and lipid panel -lifestyle modification advised as below -start phentermine -follow up in 6 weeks (2) History of parathyroidectomy: Code(s): Z98.890 - Other specified postprocedural states; Z90.89 - Acquired absence of other organs Category: Surgical Plan: Unclear history whether she has parathyroid surgery or not, we will obtain records. Plan I spent 60 minutes in reviewing the record, seeing the patient and documenting in the medical record. Orders: Orders Thyroid Stimulating Hormone Today E66.811 - Obesity, class 1 Cortisol, Free 24Hr Urine Today E66.811 - Obesity, class 1 Creatinine, 24 Hr Group Today E66.811 - Obesity, class 1 Parathyroid Hormone Intact Today E66.811 - Obesity, class 1, Z90.89 - Acquired absence of other organs, Z98.890 - Other specified postprocedural states Basic Metabolic Panel Today E66.811 - Obesity, class 1, Z90.89 - Acquired absence of other organs, Z98.890 - Other specified postprocedural states Lipid Panel Today E66.811 - Obesity, class 1 Free T4 (Free Thyroxine) Today E66.811 - Obesity, class 1 Calcium Today E66.811 - Obesity, class 1, Z90.89 - Acquired absence of other organs, Z98.890 - Other specified postprocedural states Albumin Level Today E66.811 - Obesity, class 1, Z90.89 - Acquired absence of other organs, Z98.890 - Other specified postprocedural states Hemoglobin A1c Today E66.811 - Obesity, class 1 Referrals Cloud [employer] Nutrition Referral E66.811 - Obesity, class 1 Patient Instructions: do blood work Do 24 hr urine test 24 hr urine collection instructions You have been asked to collect your urine for 24 hours to assess for cortisol excretion. You must choose a 24 hour period of time when you will be home. The morning of the first day, DISCARD the FIRST morning void and then note the time. You will collect every single void from then on for 24 hours. For example, if you wake up at 6am and urinate, flush down that void. You will then collect every drop of urine all day and all night through 6am the following day. You will urinate one last time at 6am for the collection. The jug of urine must be kept in the refrigerator until you bring it to the lab. Weight loss counselling ? Limit added sugars to less than 25 grams daily. There are 4.2 grams of sugar per teaspoon of sugar. A teaspoon of honey has 6 grams of sugar! Bread also can have more sugar than you think-check labels ? No soda or juices. Drink water, unsweetened iced tea or seltzer ? Limit eating out/take out or prepared meals to twice weekly at most ? Avoid red meat, hot dogs, foster and deli meat. Substitute plant protein for animal protein as much as you can. Beans, nuts, tofu, soy milk ? Limit cheese to 1 ounce a few times weekly ? Eat high fiber foods like beans, apples and green veggies, salsa is a great snack with whole grain cracker like Wasa ? Look for the whole grain stamp when choosing bread etc. Aim for 48 grams of whole grains daily. Whole wheat does not equal whole grains! ? Don't keep tempting treats in the house. Go out once in a while for a treat. ? Don't eat anything deep fried or cream based-no sour cream 500 calorie deficity daily to account for 1 lbs weight loss per week LOSE IT or MY fitness pal See patient advocate STOP Phentermine Coding Level of Care Code New Pt Level 5 (45445) Diagnoses Obesity (BMI 30.0-34.9) E66.811 History of parathyroidectomy Z98.890; Z90.89 Time Spent (min) 60
== END 2025-02-01 08:53 | disposition home or self-care (01) ==
PROVIDERS: PCP Pediatrics; Visit Provider Student in an Organized Health Care Education/Training Program
DX: E66.811 Obesity, class 1 (principal); Z68.34 Body mass index [BMI] 34.0-34.9, adult; Z90.89 Acquired absence of other organs; Z98.890 Other specified postprocedural states
CPT/HCPCS: 99205

== ENCOUNTER → 2025-02-01 07:47 | Outpatient (BNVA) | payer OTHER, SELFPAY | PROVIDERS: PCP Pediatrics; Visit Provider Student in an Organized Health Care Education/Training Program | DX: E66.811 Obesity, class 1 (principal); Z68.34 Body mass index [BMI] 34.0-34.9, adult; Z90.49 Acquired absence of other specified parts of digestive tract; Z98.890 Other specified postprocedural states | CPT/HCPCS: 99202 ==

== ENCOUNTER 2025-02-01 09:01 | Outpatient (REF) | payer OTHER, SELFPAY ==
[2025-02-01 10:44] LABS: Albumin Level 4.1 g/dL (3.5-5.0); Anion Gap 11 (12-20); Blood Urea Nitrogen 13 mg/dL (9-16); Calcium 9.2 mg/dL (8.4-10.2); Carbon Dioxide 27 mmol/L (22-29); Chloride 106 mmol/L (96-108); Cholesterol 112 mg/dL (<200); Estimated Glomerular Filt Rate > 60; Glucose Random 95 mg/dL (60-115); HDL Cholesterol 43 mg/dL (>40); LDL Cholesterol Calculated 59 mg/dL (<100); Potassium 3.8 mmol/L (3.3-5.1); Sodium 140 mmol/L (135-145); Triglycerides 50 mg/dL (<150)
[2025-02-01 10:47] LABS: Estimated Average Glucose 91 mg/dL; Hemoglobin A1C 102.2006 umol/L; Hemoglobin A1c % 4.8 % (<6.0); Total Hemoglobin (HGBA1C) 3494.7233 umol/L
[2025-02-01 11:03] LABS: Thyroid Stimulating Hormone 0.91 uIU/mL (0.32-4.0)
[2025-02-01 11:18] LABS: Parathyroid Hormone Intact 38.7 pg/mL (8.7-77.1)
== END 2025-02-01 09:02 | disposition home or self-care (01) ==
LOC: HO.10HDL 09:01
PROVIDERS: Visit Provider Student in an Organized Health Care Education/Training Program
DX: E66.811 Obesity, class 1 (principal); Z98.890 Other specified postprocedural states; Z90.89 Acquired absence of other organs; Z13.1 Encounter for screening for diabetes mellitus
CPT/HCPCS: 36415; 80048; 80061; 82040; 83036; 83970; 84439; 84443